=== PATIENT | female | born 1995 | race Caucasian/White ===

== ENCOUNTER 2016-08-18 18:40 | Emergency (ER) | payer MEDICAID, OTHER ==
[~2016-08-18] VITALS: Ht 167.6 cm; Wt 68.0 kg
[~2016-08-18 18:40] MED LIST: ACHD5005 PO; CIPR500T4 PO; CPR500T PO; DESV50TA PO; HYDR1CAP2 PO; HYDR30CR71 RC; METR500T21 PO; PNV1COMB25 PO
[2016-08-18 19:17] LABS: BILIRUBIN,URINE NEGATIVE (NEGATIVE); KETONES,URINE NEGATIVE (NEGATIVE); LEUKOCYTE ESTERASE ,URINE 3+ (NEGATIVE); NITRITE,URINE NEGATIVE (NEGATIVE); PH,URINE 7 (5-9); PROTEIN,URINE NEGATIVE (NEGATIVE); UROBILINOGEN,URINE NORMAL (NORMAL)
[2016-08-18 19:26] LABS: WBC,URINE 25-50 /HPF
[2016-08-18 19:27] LABS: SQUAMOUS EPITHELIAL CELL,UR 25-50 /HPF
--- NOTE | 2016-08-18 20:48 | Diagnostic Imaging Report ---
INDICATION: Back pain. Question UTI. Patient is . FINDINGS: There is single live intrauterine fetus. [place]-rump length of 3 cm consistent with 10 week 0 day gestation. No evidence of subchorionic fluid collection. heart rate is 167 beats per minute. The ovaries are not demonstrated. No adnexal mass is noted. IMPRESSION: 10 week 0 day live intrauterine by current ultrasound. Dictated by: Dictated on workstation # [id number]
--- NOTE | 2016-08-18 21:17 | ED GU-Female ---
General Chief Complaint: -Female Stated Complaint: 10 WKS PREG/LOWER BACK PAIN/CRAMPING Nursing Triage Note: PAINFUL URINATION X2 DAYS, LOWER BACK PAIN TONIGHT. Nursing Sepsis Screen: No Definite Risk Source: patient Exam Limitations: no limitations History of Present Illness Time seen by provider: 20:55 Initial Comments Here with report of dysuria for a few days. Also complains of some low back pain. Has increased fluids in her diet. Also reports fairly significant constipation with last bowel movement 2 days ago. She states that she has had to use enemas to get a bowel movement. Last sexual activity a week ago. Denies vaginal discharge or bleeding. Pain is a little better now. Denies nausea or vomiting. Denies fever or chills. Timing/Duration: changing over time, other (2 days) Severity/Quality: mild, cramping Location: suprapubic Radiation: RLQ, LLQ, back Activities at Onset: none Sexual Hillman History: less than 2 months ago, single partner Modifying Factors: Worsens With Urinating Associated Symptoms: dysuriaNo fever/chills, No loss of bladder control, lower back painNo nausea/vomiting, No urinary frequency Allergies and Home Medications Allergies Coded Allergies: No Known Drug Allergies (Unverified , 01/09/11) Home Medications Ciprofloxacin HCl 500 Mg Tablet #14 500 MG PO BID Prescribed by: GARCIA ALVAREZ on 05/20/1634 Hydrocortisone 30 Gm Cream..g. #1 30 GM RC TID PRN PRN HEMORRHOIDS Prescribed by: GARCIA ALVAREZ on 05/20/16 0732 Metronidazole 500 Mg Tablet #14 500 MG PO BID Prescribed by: GARCIA ALVAREZ on 05/20/16 0734 Pnv #116/Iron Fumarate/FA/Dha 1 Each Combo..pkg 1 EACH PO DAILY (Reported) Constitutional: see HPI Respiratory: no symptoms reported Cardiovascular: no symptoms reported Gastrointestinal: RLQ LLQNo nausea, No vomiting Genitourinary: see HPIdenies discharge, dysuria Expected Date of Delivery: Mar 16, 2017 Musculoskeletal: see HPI back pain Skin: no symptoms reported Past Vkjssja-Tpmvyv-Robsmw Hx Patient Social History Alcohol Use: Denies Use Recreational Drug Use: Yes (marijuana, etoh 2x weekly, 1/2ppd) Smoking Status: Former Smoker Type Used: Cigarettes Recent Foreign Travel: No Contact w/Someone Who Travel: No Recent Infectious Disease Expo: No Recent Hopitalizations: No Physical Abuse Screen: No Sexual Abuse: No Immunizations Up To Date Tetanus Booster (TDap): Unknown Seasonal Allergies Seasonal Allergies: No Surgeries HX Surgeries: No Respiratory Hx Respiratory Disorders: No Cardiovascular Hx Cardiac Disorders: No Neurological Hx Neurological Disorders: No Reproductive System : Yes Hx : 1 Hx Para: 0 Hx Reproductive Disorders: No Genitourinary Hx Genitourinary Disorders: Yes Genitourinary Disorders: Kidney Stones Gastrointestinal Hx Gastrointestinal Disorders: Yes Gastrointestinal Disorders: Chronic Constipation Musculoskeletal Hx Musculoskeletal Disorders: No Endocrine Hx Endocrine Disorders: No HEENT HX ENT Disorders: No Cancer Hx Cancer: No Psychosocial Hx Psychiatric Problems: No Integumentary HX Skin/Integumentary Disorder: No Blood Transfusions Hx Blood Disorders: No Reviewed Nursing Assessment Reviewed/Agree w Nursing PMH: Yes Family Medical History Significant Family History: No Pertinent Family Hx Physical Exam Vital Signs Vital Sign - Last 12Hours 08/18/16 19:11 Temp 98.1 Pulse 99 Resp 16 B/P 125/80 Pulse Ox 99 O2 Delivery Room Air Capillary Refill : Less Than 3 Seconds General Appearance: WD/WN no apparent distress Neck: full range of motion supple Cardiovascular: regular rate, rhythm no murmur Respiratory: lungs clear normal breath sounds Gastrointestinal: soft tenderness (mild suprapubic and bilateral lower quadrant/pelvic pain.) Pelvic: other (patient declined) Back: normal inspection no CVA tenderness no vertebral tenderness Extremities: non-tender normal inspection Neurologic/Psychiatric: alert oriented x 3 Skin: normal color warm/dry Progress/Results/Core Measures Results/Orders Lab Results Laboratory Tests Test 08/18/16 19:08 Range/Units Urine Bacteria MODERATE H /HPF Urine Bilirubin NEGATIVE NEGATIVE Urine Casts NONE /LPF Urine Clarity SLIGHTLY CLOUDY Urine Color YELLOW Urine Crystals NONE /LPF Urine Culture Indicated YES Urine Glucose (UA) NEGATIVE NEGATIVE Urine Ketones NEGATIVE NEGATIVE Urine Leukocyte Esterase 3+ H NEGATIVE Urine Mucus NEGATIVE /LPF Urine Nitrite NEGATIVE NEGATIVE Urine Protein NEGATIVE NEGATIVE Urine RBC NONE /HPF Urine RBC (Auto) NEGATIVE NEGATIVE Urine Specific [place] 1.015 L 1.016-1.022 Urine Squamous Epithelial Cells 25-50 H /HPF Urine Urobilinogen NORMAL NORMAL MG/DL Urine WBC 25-50 H /HPF Urine pH 7 5-9 Vital Signs/I&O Vital Sign - Last 12Hours 08/18/16 19:11 Temp 98.1 Pulse 99 Resp 16 B/P 125/80 Pulse Ox 99 O2 Delivery Room Air Blood Pressure Mean: 95 Progress Note : Progress Note Seen and evaluated. UA and ultrasound ordered. Ultrasound results as below. I did discuss with the patient about UA results due to contamination. Also recommending pelvic exam as this may be pelvic infection such as Flexeril vaginosis. Patient states that she is having pain vaginally and would like to wait if possible. This is reasonable. She has established OB with Dr. Ellis. We will hold on antibiotic treatment until cultures are obtained. She will follow up with her doctor for further evaluation including possible pelvic exam as needed. Patient would like to avoid antibiotics until cultures are obtained if possible due to concerns about risk to the fetus. This is reasonable currently. We also talked about her constipation concerns and issues. She will initiate MiraLAX treatment and also discussed this with her doctor. I am recommending 2-3 day follow-up with her doctor. Discharged home with return precautions. Patient verbalize understanding instructions and agreement with plan. Departure Impression Impression: Primary Impression: Suprapubic abdominal pain Disposition: HOME, SELF-CARE Condition: Improved Departure-Patient Inst. Decision time for Depature: 21:17 Referrals: ELLA ELLIS MD (PCP) Primary Care Physician NO,LOCAL PHYSICIAN (Family) Primary Care Physician Patient Instructions: Acute Abdomen (Belly Pain), Adult (DC) Add. Discharge Instructions: All discharge instructions reviewed with patient and/or family. Voiced understanding. Drink plenty of fluids. You may use MiraLAX or the generic one capful twice daily for 3 days and then one half capful twice daily thereafter to keep stools soft. You may increase or decrease the dose as needed to keep normal bowel movements. Call Dr. Ellis in the morning for follow-up appointment within the next 2-3 days. Your cultures are pending on your urine. We will call you if there is indications of urinary tract infection but you still need to follow- up with Dr. Ellis for possible pelvic exam as needed and treatment if indicated. Return for worse pain, fever, vomiting, weakness, breathing problems or other concerns as needed. Copy Copies To 1: ELLA ELLIS MD, TIMOTHY D MD Aug 18, 2016 21:17
[2016-08-18 21:43] VITALS: BP 120/76
== END 2016-08-18 21:43 | disposition home or self-care (01) ==
LOC: EDUNIT# 18:40 → ER 18:42
DX: O26.891 Other specified pregnancy related conditions, first trimester (principal); R10.31 Right lower quadrant pain; R10.32 Left lower quadrant pain; M54.5 Low back pain; K59.00 Constipation, unspecified; Z3A.10 10 weeks gestation of pregnancy
CPT/HCPCS: 76817; 81000; 87088

== ENCOUNTER → 2016-11-01 | Outpatient (CLI) | payer MEDICAID ==
--- NOTE | 2016-11-01 12:43 | Diagnostic Imaging Report ---
EXAMINATION: OB ultrasound. INDICATION: survey. COMPARISON: Ultrasound of 08/18/2016. FINDINGS: The heart rate is 129 BPM. The placenta is posterior. There is no placenta previa. The cervix is closed and is 3.8 cm in length. The anatomic evaluation demonstrates a normal appearance of the posterior fossa. The ventricles are normal in size. The urinary bladder appears unremarkable. Two umbilical arteries are seen. The spine demonstrates no definite abnormality. The kidneys demonstrate no hydronephrosis or cystic mass. The cord insertion appears unremarkable. The four-chamber view is not well seen due to positioning. The stomach appears unremarkable. The growth parameters are as follow: Biparietal diameter at 20 weeks and 0 days. Head circumference at 20 weeks and 5 days. Abdominal circumference at 20 weeks and 4 days. Femur length at 20 weeks and 4 days. The average gestational age is 20 weeks and 4 days. The previous ultrasound did not provide an BENJA. Based on a provided BENJA of 03/16/2017, the current gestational age would be 20 weeks and 5 days. IMPRESSION: 1. A short-term followup is recommended to reevaluate the four-chamber view. 2. The current growth parameters are at 20 weeks and 4 days. Correlate with the established BENJA. Dictated by: Dictated on workstation # [id number]
== END ==
LOC: RAD 10:11
PROVIDERS: ATTEND Obstetrics & Gynecology
DX: Z36 Encounter for antenatal screening of mother (principal); Z33.1 Pregnant state, incidental
CPT/HCPCS: 76805

== ENCOUNTER 2016-11-29 11:15 | Outpatient (RCR) | payer MEDICAID ==
--- OUTSIDE RECORDS SUMMARY | 2016-10-18 08:14 | XMS REPORT ---
Author Author RAKESH LIZBETH Organization [facility] Address [address] [place] [address] Care Team Providers Care Fur Puller Name Role Phone CAMERONLIZBETH Mcbride Unavailable PROBLEMS Type Condition ICD9-CM Code [id number] Code Onset Dates Condition Status SNOMED Code Problem Major depressive disorder, recurrent episode, moderate F33.1 Active 269838297 Problem Depression F32.9 Active 19293226 Problem Anxiety F41.9 Active 25222089 Assessment Encounter for test Z32.00 12 Jul, 2016 Active 943495983 Problem Major depressive disorder, recurrent, mild F33.0 Active 469452731 Problem Generalized anxiety disorder F41.1 Active 02139315 Problem OAB (overactive bladder) N32.81 Active 070564608 Problem Low back pain M54.5 Active 820707648 Problem 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 Active 280874392 Problem History of substance abuse Z87.898 Active 435106932 Problem Other chronic pain G89.29 Active 24877677 Problem Routine health maintenance Z00.00 Active 033732121 ALLERGIES Unknown Allergies SOCIAL HISTORY No smoking Hx information available PLAN OF CARE VITAL SIGNS MEDICATIONS Unknown Medications RESULTS Name Result Date Reference Range TEST, URINE (IN HOUSE) 2016-07-15 RESULTS Positive Lot # [id number] Control + Exp date 11/2017 PROCEDURES Procedure Date Ordered Related Diagnosis Body Site URINE TEST Jul 15, 2016 IMMUNIZATIONS No Known Immunizations
== END 2016-11-29 11:49 | disposition home or self-care (01) ==
PROVIDERS: ATTEND Family Medicine
DX: O26.892 Other specified pregnancy related conditions, second trimester (principal); M54.42 Lumbago with sciatica, left side; Z3A.18 18 weeks gestation of pregnancy

== ENCOUNTER → 2016-12-03 | Outpatient (CLI) | payer MEDICAID ==
--- NOTE | 2016-12-03 13:03 | Diagnostic Imaging Report ---
OB ultrasound. INDICATION: Incomplete survey with poor visualization of the heart on the previous exam. FINDINGS: heart rate is 130 beats per minutes. The placenta is posterior. No placenta previa. The four-chamber view is better seen on the current exam with no definite abnormality. IMPRESSION: Completed survey with unremarkable four-chamber view of the heart. Dictated by: Dictated on workstation # [id number]
== END ==
LOC: RAD 09:55
PROVIDERS: ATTEND Obstetrics & Gynecology
DX: Z36 Encounter for antenatal screening of mother (principal); Z3A.00 Weeks of gestation of pregnancy not specified
CPT/HCPCS: 76816

== ENCOUNTER 2017-03-09 15:01 | Outpatient (CLI) | payer MEDICAID ==
[~2017-03-09] VITALS: Ht 167.6 cm; Wt 85.7 kg
[2017-03-09] MEDS ORDERED: OMEP10CA4 PO (15:32)
[2017-03-09] MEDS ORDERED: FERR-84 PO (15:34)
[2017-03-09] MEDS ORDERED: DOXY25TA35 PO (15:34)
[2017-03-09 15:41] VITALS: BP 128/84
--- NOTE | 2017-03-10 11:25 | Physician Query-Final Dx ---
ANKUR EVERETT 03/10/17 1124: Clinic Account Progress/Dx Physician Query: Please give diagnosis Date of Service Mar 09, 2017 at 15:01 OSVALDO SULTANA MD 03/10/17 1228: Clinic Account Progress/Dx DIAGNOSIS: Diagnosis decreased movement ANKUR EVERETT Mar 10, 2017 11:24 OSVALDO SULTANA MD Mar 10, 2017 12:28
== END 2017-03-09 15:55 | disposition home or self-care (01) ==
LOC: LDRP 15:01 → WSo 15:01
PROVIDERS: ATTEND Obstetrics & Gynecology
DX: O36.8190 Decreased fetal movements, unspecified trimester, not applicable or unspecified (principal)
CPT/HCPCS: 99212

== ENCOUNTER 2017-03-15 21:15 | Outpatient (CLI) | payer MEDICAID ==
[~2017-03-15] VITALS: Ht 167.6 cm; Wt 87.1 kg
[~2017-03-15 21:15] MED LIST changes: +DOXY25TA35 PO; +FERR-84 PO; +OMEP10CA4 PO
[2017-03-15 21:33] VITALS: BP 129/86
[2017-03-15 21:52] LABS: BILIRUBIN,URINE NEGATIVE (NEGATIVE); KETONES,URINE NEGATIVE (NEGATIVE); LEUKOCYTE ESTERASE ,URINE 1+ (NEGATIVE); NITRITE,URINE NEGATIVE (NEGATIVE); PH,URINE 7 (5-9); PROTEIN,URINE 1+ (NEGATIVE); UROBILINOGEN,URINE NORMAL (NORMAL)
[2017-03-15 21:59] LABS: SQUAMOUS EPITHELIAL CELL,UR 25-50 /HPF
--- NOTE | 2017-03-17 13:28 | Physician Query-Final Dx ---
ANKUR EVERETT 03/17/17 1328: Clinic Account Progress/Dx Physician Query: Please give diagnosis Date of Service Mar 15, 2017 at 21:15 NYLA STERN DO 03/18/17 0720: Clinic Account Progress/Dx DIAGNOSIS: Diagnosis 39 week IUP Uterine contractions vaginal discharge ANKUR EVERETT Mar 17, 2017 13:28 NYLA STERN DO Mar 18, 2017 07:20
== END 2017-03-15 22:18 | disposition home or self-care (01) ==
LOC: WSo 21:15 → LDRP 21:16 → WSo 22:18
PROVIDERS: ATTEND Obstetrics & Gynecology
DX: O47.1 False labor at or after 37 completed weeks of gestation (principal); O26.893 Other specified pregnancy related conditions, third trimester; N89.8 Other specified noninflammatory disorders of vagina; Z3A.39 39 weeks gestation of pregnancy
CPT/HCPCS: 81000; 99213

== ENCOUNTER 2017-03-20 19:00 | Inpatient (IN) | payer MEDICAID ==
[~2017-03-20] VITALS: Ht 167.6 cm; Wt 87.1 kg
[2017-03-20] MEDS ORDERED: D5 LR IV SOLUTION 1,000 ML IV ONE (19:05)
--- OUTSIDE RECORDS SUMMARY | 2017-03-20 19:09 | XMS REPORT ---
Author Author RAKESH LIZBETH Organization [facility] Address [address] [place] [address] Care Team Providers Care Logistics Lead Name Role Phone CAMERONLIZBETH Mcbride Unavailable PROBLEMS Type Condition ICD9-CM Code [id number] Code Onset Dates Condition Status SNOMED Code Problem Major depressive disorder, recurrent episode, moderate F33.1 Active 746576035 Problem Depression F32.9 Active 67227846 Problem Anxiety F41.9 Active 66707580 Assessment Encounter for test Z32.00 12 Jul, 2016 Active 373475762 Problem Major depressive disorder, recurrent, mild F33.0 Active 044189351 Problem Generalized anxiety disorder F41.1 Active 58130424 Problem OAB (overactive bladder) N32.81 Active 224614116 Problem Low back pain M54.5 Active 528560573 Problem 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 Active 427136213 Problem History of substance abuse Z87.898 Active 598197578 Problem Other chronic pain G89.29 Active 19597448 Problem Routine health maintenance Z00.00 Active 070036237 ALLERGIES Unknown Allergies SOCIAL HISTORY No smoking Hx information available PLAN OF CARE VITAL SIGNS MEDICATIONS Unknown Medications RESULTS Name Result Date Reference Range TEST, URINE (IN HOUSE) 2016-07-15 RESULTS Positive Lot # [id number] Control + Exp date 11/2017 PROCEDURES Procedure Date Ordered Related Diagnosis Body Site URINE TEST Jul 15, 2016 IMMUNIZATIONS No Known Immunizations
--- OUTSIDE RECORDS SUMMARY | 2017-03-20 19:09 | XMS REPORT ---
Author Author VAL JORDAN [facility] eClinical[employer] Address Unknown Phone Unavailable Care Team Providers Care Production Wood Craftsman Name Role Phone VAL JORDAN Unavailable Allergies No Known Allergies Problems Problem Type Condition Code Onset Dates Condition Status Problem Major depressive disorder, recurrent, mild F33.0 Active Medications No Known Medications Results No Known Results Summary Purpose eClinicalWorks Submission
--- OUTSIDE RECORDS SUMMARY | 2017-03-20 19:09 | XMS REPORT ---
Author Author VAL JORDAN [facility] eClinicalWorks Address Unknown Phone Unavailable Care Team Providers Care Mural Painter Name Role Phone VAL JORDAN Unavailable Allergies No Known Allergies Problems Problem Type Condition Code Onset Dates Condition Status Problem Major depressive disorder, recurrent, mild F33.0 Active Medications Medication Code System Code Instructions Start Date End Date Status Dosage Diflucan [facility] [address]-14 150 MG Orally Once a day Jul 06, 2015 1 tablet Results No Known Results Summary Purpose eClinicalWorks Submission
--- OUTSIDE RECORDS SUMMARY | 2017-03-20 19:10 | XMS REPORT ---
Author Author LIZBETH CAMERON Organization [employer] Address Unknown Phone Unavailable Care Team Providers Care Management Trainee Program Stores Name Role Phone LIZBETH CAMERON CP Unavailable Allergies No Known Allergies Problems Problem Type Condition Code Onset Dates Condition Status Problem Generalized anxiety disorder F41.1 Active Problem Anxiety F41.9 Active Problem Major depressive disorder, recurrent episode, moderate F33.1 Active Problem Major depressive disorder, recurrent, mild F33.0 Active Problem Low back pain M54.5 Active Problem Other chronic pain G89.29 Active Problem OAB (overactive bladder) N32.81 Active Problem History of substance abuse Z87.898 Active Problem Depression F32.9 Active Problem Routine health maintenance Z00.00 Active Problem 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 Active Medications Medication Code System Code Instructions Start Date End Date Status Dosage Cipro [facility] [address]-34 500 MG Orally Twice a day May 24, 2016 May 31, 2016 1 tablet Anusol-HC [facility] [address]-97 2.5 % Rectal 3 times a day May 24, 2016 1 application to affected area Flagyl [facility] [address]-13 500 MG Orally 2 times a day May 24, 2016 May 31, 2016 1 tablet Results No Known Results Summary Purpose eClinicalWorks Submission
--- OUTSIDE RECORDS SUMMARY | 2017-03-20 19:10 | XMS REPORT ---
Author Author LIZBETH CAMERON Organization [employer] Address Unknown Phone Unavailable Care Team Providers Care Lining Stitcher Name Role Phone LIZBETH CAMERON CP Unavailable Allergies, Adverse Reactions, Alerts Substance Reaction Event Type Wellbutrin Hallucinations Drug Allergy Problems Problem Type Condition Code Onset Dates Condition Status Problem Major depressive disorder, recurrent, mild F33.0 Active Problem Major depressive disorder, recurrent episode, moderate F33.1 Active Problem Generalized anxiety disorder F41.1 Active Problem Other chronic pain G89.29 Active Problem Routine health maintenance Z00.00 Active Problem Low back pain M54.5 Active Problem Depression F32.9 Active Problem Anxiety F41.9 Active Problem 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 Active Problem History of substance abuse Z87.898 Active Assessment Other chronic pain G89.29 Active Assessment Low back pain M54.5 Active Assessment Anxiety F41.9 Active Medications Medication Code System Code Instructions Start Date End Date Status Dosage Sertraline HCl [facility] [address]-50 25 MG Orally Once a day February 16, 2016 1 tablet Procedures Procedure Coding System Code Date Office Visit, Est Pt., Level 3 CPT-4 95934 February 16, 2016 Vital Signs Date/Time: February 16, 2016 Cardiac Monitoring Heart Rate 84 bpm Weight 143.3 lbs Height 67 in Blood Pressure Diastolic 76 mmHg Blood Pressure Systolic 118 mmHg Results No Known Results Summary Purpose eClinicalWorks Submission
--- OUTSIDE RECORDS SUMMARY | 2017-03-20 19:10 | XMS REPORT ---
Author Author CA DUMONT [employer] Address Unknown Phone Unavailable Care Team Providers Care Proofing Machine Operator Name Role Phone CA DUMONT Unavailable Allergies No Known Allergies Problems Problem [...] History of substance abuse Z87.898 Active Assessment History of substance abuse Z87.898 Active Assessment Generalized anxiety disorder F41.1 Active Assessment Major depressive disorder, recurrent episode, moderate F33.1 Active Medications No Known Medications Procedures Procedure Coding System Code Date Psychotherapy, patient &/family, 45 minutes, established patient CPT-4 20016 Mar 19, 2016 Results No Known Results Summary Purpose ngmocoinicalWorks Submission
--- OUTSIDE RECORDS SUMMARY | 2017-03-20 19:10 | XMS REPORT ---
Author Author LIZBETH CAMERON Organization [employer] Address Unknown Phone Unavailable Care Team Providers Care Public Health Staff Nurse Name Role Phone LIZBETH CAMERON CP Unavailable [...] Problem 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 Active Medications No Known Medications Results No Known Results Summary Purpose eClinicalWorks Submission
--- OUTSIDE RECORDS SUMMARY | 2017-03-20 19:10 | XMS REPORT ---
Author Author VAL JORDAN [facility] eClinicalWorks Address Unknown Phone Unavailable Care Team Providers Care Inspector Motor Vehicles Name Role Phone VAL JORDAN CP Unavailable Allergies, Adverse Reactions, Alerts Substance Reaction Event Type N.K.D.A. Info Not Available Non Drug Allergy Problems Problem Type Condition Code Onset Dates Condition Status Assessment History of hematuria Z87.448 Active Assessment History of recurrent UTIs Z87.440 Active Assessment Dysuria R30.0 Active Assessment Screening for malignant neoplasm of cervix Z12.4 Active Problem Major depressive disorder, recurrent, mild F33.0 Active Assessment Urinary frequency R35.0 Active Assessment Suprapubic pain R10.2 Active Assessment Vaginal discharge N89.8 Active Assessment Costovertebral angle pain M54.9 Active Medications Medication Code System Code Instructions Start Date End Date Status Dosage AZO Cranberry [facility] [address] 250-30 MG Orally not defined Bactrim DS [facility] [address]-78 800-160 MG Orally 2 times a day Jul 03, 2015 Jul 06, 2015 1 tablet Procedures Procedure Coding System Code Date URINE CULTURE/COLONY COUNT CPT-4 89931 Jul 03, 2015 CULTURE, BACTERIA, OTHER CPT-4 48366 Jul 03, 2015 URINALYSIS, AUTO, W/O SCOPE CPT-4 28297 Jul 03, 2015 TRICHOMONAS VAGIN, DIR PROBE CPT-4 03563 Jul 03, 2015 No Charge CPT-4 34395 Jul 03, 2015 Office Visit, Est Pt., Level 3 CPT-4 72001 Jul 03, 2015 SPECIMEN HANDLING CPT-4 91395 Jul 03, 2015 Vital Signs Date/Time: Jul 03, 2015 Temperature 97.3 F Weight 152.8 lbs Height 67 in BMI 23.93 Index Blood Pressure Diastolic 70 mmHg Blood Pressure Systolic 106 mmHg Cardiac Monitoring Heart Rate 84 bpm Results No Known Results Summary Purpose eClinicalWorks Submission
--- OUTSIDE RECORDS SUMMARY | 2017-03-20 19:10 | XMS REPORT ---
Author KEV Webb [facility] eClinicalWorks Address Unknown Phone Unavailable Care Team Providers Care Wool Mixer Name Role Phone KEV TOLBERT Unavailable Allergies No Known Allergies Problems Problem Type Condition Code Onset Dates Condition Status Problem Anxiety F41.9 Active Problem Major depressive disorder, recurrent, mild F33.0 Active Problem Depression F32.9 Active Assessment Depression F32.9 Active Assessment Anxiety F41.9 Active Medications Medication Code System Code Instructions Start Date End Date Status Dosage Wellbutrin XL [facility] [address]-42 150 MG Orally Once a day November 28, 2015 1 tablet in the morning Clonidine HCl [facility] [address]-18 0.1 MG Orally bid November 28, 2015 1 tablet Results No Known Results Summary Purpose eClinicalWorks Submission
--- OUTSIDE RECORDS SUMMARY | 2017-03-20 19:10 | XMS REPORT ---
Author Author LIZBETH CAMERON Organization [employer] Address Unknown Phone Unavailable Care Team Providers Care Spare Parts Clerk Name Role Phone LIZBETH CAMERON CP Unavailable Allergies, Adverse Reactions, Alerts Substance Reaction Event Type Wellbutrin Hallucinations Drug Allergy Problems Problem Type Condition Code Onset Dates Condition Status Problem Generalized anxiety disorder F41.1 Active Problem Anxiety F41.9 Active Problem Major depressive disorder, recurrent episode, moderate F33.1 Active Problem Low back pain M54.5 Active Problem Other chronic pain G89.29 Active Problem OAB (overactive bladder) N32.81 Active Problem History of substance abuse Z87.898 Active Problem Depression F32.9 Active Problem Routine health maintenance Z00.00 Active Problem 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 Active Assessment OAB (overactive bladder) N32.81 Active Assessment Urinary frequency R35.0 Active Problem Major depressive disorder, recurrent, mild F33.0 Active Medications Medication Code System Code Instructions Start Date End Date Status Dosage Myrbetriq [facility] [address]-88 25 MG Orally Once a day May 14, 2016 Jun 13, 2016 1 tablet Procedures Procedure Coding System Code Date Office Visit, Est Pt., Level 3 CPT-4 02632 May 14, 2016 URINALYSIS, AUTO, W/O SCOPE CPT-4 60029 May 14, 2016 Vital Signs Date/Time: May 14, 2016 Cardiac Monitoring Heart Rate 92 bpm Weight 153.0 lbs Height 67 in BMI 23.96 Index Blood Pressure Diastolic 78 mmHg Blood Pressure Systolic 112 mmHg Results No Known Results Summary Purpose eClinicalWorks Submission
--- OUTSIDE RECORDS SUMMARY | 2017-03-20 19:10 | XMS REPORT ---
Author Author LIZBETH CAMERON Organization [employer] Address Unknown Phone Unavailable Care Team Providers Care Alteration Tailor Apprentice Name Role Phone LIZBETH CAMERON CP Unavailable [...] Problem History of substance abuse Z87.898 Active Medications No Known Medications Results No Known Results Summary Purpose eClinicalWorks Submission
--- OUTSIDE RECORDS SUMMARY | 2017-03-20 19:10 | XMS REPORT ---
Author Author LIZBETH CAMERON Organization [employer] Address Unknown Phone Unavailable Care Team Providers Care Bead Wire Insulator Name Role Phone LIZBETH CAMERON CP Unavailable Allergies, Adverse Reactions, Alerts Substance Reaction Event Type Wellbutrin Hallucinations Drug Allergy Problems Problem Type Condition Code Onset Dates Condition Status Problem Major depressive disorder, recurrent, mild F33.0 Active Problem Major depressive disorder, recurrent episode, moderate F33.1 Active Problem Generalized anxiety disorder F41.1 Active Assessment Anxiety F41.9 Active Assessment Major depressive disorder, recurrent, mild F33.0 Active Problem Other chronic pain G89.29 Active Problem Routine health maintenance Z00.00 Active Problem Low back pain M54.5 Active Problem Depression F32.9 Active Problem Anxiety F41.9 Active Problem 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 Active Problem History of substance abuse Z87.898 Active Medications Medication Code System Code Instructions Start Date End Date Status Dosage Clonazepam [facility] [address]-49 0.5 MG Orally Twice a day Mar 15, 2016 1 tablet Procedures Procedure Coding System Code Date Office Visit, Est Pt., Level 3 CPT-4 63128 Mar 15, 2016 Vital Signs Date/Time: Mar 15, 2016 Blood Pressure Systolic 106 mmHg Weight 143.3 lbs Height 67 in BMI 22.44 Index Blood Pressure Diastolic 68 mmHg Results No Known Results Summary Purpose [employer] Submission
--- OUTSIDE RECORDS SUMMARY | 2017-03-20 19:11 | XMS REPORT ---
Author Author ZEN MARCELO [facility] [employer] Address Unknown Phone Unavailable Care Team Providers Care Dealer Account Manager Name Role Phone ZEN MARCELO CP Unavailable Allergies No Known Allergies Problems Problem Type Condition Code Onset Dates Condition Status Assessment Anxiety F41.9 Active Assessment Major depressive disorder, recurrent, mild F33.0 Active Problem Major depressive disorder, recurrent, mild F33.0 Active Assessment Substance addiction F19.20 Active Assessment Depression F32.9 Active Assessment Substance abuse F19.10 Active Medications No Known Medications Procedures Procedure Coding System Code Date Psych diagnostic evaluation, established patient CPT-4 29135 November 28, 2015 Results No Known Results Summary Purpose [employer] Submission
--- OUTSIDE RECORDS SUMMARY | 2017-03-20 19:11 | XMS REPORT ---
Author Author LIZBETH CAMERON Organization [employer] Address Unknown Phone Unavailable Care Team Providers Care Laundry Manager Name Role Phone LIZBETH CAMERON CP Unavailable [...] Problem 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 Active Assessment Major depressive disorder, recurrent episode, moderate F33.1 Active Assessment Generalized anxiety disorder F41.1 Active Problem Major depressive disorder, recurrent, mild F33.0 Active Medications Medication Code System Code Instructions Start Date End Date Status Dosage Escitalopram Oxalate [facility] [address]-38 20 mg Orally Once a day Jun 11, 2016 1 tablet Procedures Procedure Coding System Code Date Office Visit, Est Pt., Level 3 CPT-4 98890 Jun 11, 2016 Vital Signs Date/Time: Jun 11, 2016 Cardiac Monitoring Heart Rate 82 bpm Weight 153.7 lbs Height 67 in BMI 24.07 Index Blood Pressure Diastolic 70 mmHg Blood Pressure Systolic 114 mmHg Results No Known Results Summary Purpose [employer] Submission
[2017-03-20] MEDS: D5 LR IV SOLUTION 1,000 ML IV SCH (19:25)
[2017-03-20] MEDS: LACTATED RINGERS 1,000 ML IV SCH (19:50)
[2017-03-20 20:00] VITALS: BP 134/85
[2017-03-20] MEDS ORDERED: MISOPROSTOL 100 MCG (CYTOTEC) TAB PO ONE (20:15)
[2017-03-20] MEDS ORDERED: MINERAL OIL CONCENTRATE 99.9% 15 ML UDC TOP PRN (20:15)
[2017-03-20] MEDS ORDERED: DOXY25TA46 PO (20:19)
[2017-03-20 20:20] LABS: BASOPHILS % (AUTO) 0 % (0-10); EOSINOPHILS # (AUTO) 0.1 10^3/uL (0.0-0.3); EOSINOPHILS % (AUTO) 1 % (0-10); LYMPHOCYTES # (AUTO) 2.2 X 10^3 (1.0-4.0); LYMPHOCYTES % (AUTO) 18 % (12-44); MEAN CORPUSCULAR HEMOGLOBIN 31 PG (25-34); MEAN CORPUSCULAR HGB CONC 34 G/DL (32-36); MEAN CORPUSCULAR VOLUME 92 FL (80-99); MEAN PLATELET VOLUME 11.5 FL (7.4-10.4); MONOCYTES # (AUTO) 0.6 X 10^3 (0.0-1.0); MONOCYTES % (AUTO) 5 % (0-12); NEUTROPHILS # (AUTO) 9.3 X 10^3 (1.8-7.8); NEUTROPHILS % (AUTO) 76 % (42-75); PLATELET COUNT 200 10^3/uL (130-400); RED BLOOD COUNT 3.93 10^6/uL (4.35-5.85); RED CELL DISTRIBUTION WIDTH 12.9 % (10.0-14.5); WHITE BLOOD COUNT 12.2 10^3/uL (4.3-11.0)
[2017-03-20 20:43] LABS: BILIRUBIN,URINE NEGATIVE (NEGATIVE); KETONES,URINE NEGATIVE (NEGATIVE); LEUKOCYTE ESTERASE ,URINE 1+ (NEGATIVE); NITRITE,URINE NEGATIVE (NEGATIVE); PH,URINE 6.5 (5-9); PROTEIN,URINE NEGATIVE (NEGATIVE); UROBILINOGEN,URINE NORMAL (NORMAL)
[2017-03-20] MEDS ORDERED: ONDANSETRON 4 MG/2 ML (SDV) Z0FRAN ONE (21:33)
[2017-03-20] MEDS: ONDANSETRON 4 MG/2 ML (SDV) Z0FRAN IVP PRN (21:42)
[2017-03-20 22:00] VITALS: BP 125/85
[2017-03-20] MEDS ORDERED: CATHETER FLUSH 10 ML SYR IV SCH (22:00)
[2017-03-20 23:00] VITALS: BP 128/82
[2017-03-21] VITALS (40 sets, daily range): BP systolic 108–170; BP diastolic 56–95
[2017-03-21] MEDS ORDERED: MISOPROSTOL 100 MCG (CYTOTEC) TAB PO SCH (00:15)
[2017-03-21] MEDS ORDERED: HYDROmorphone (DILAUDID) 2 MG/ML VIAL IVP ONE (03:15)
[2017-03-21] MEDS: D5 LR IV SOLUTION 1,000 ML IV SCH (03:19)
[2017-03-21] MEDS ORDERED: SUFENTA 0.6MCG/ML BUPIVA 0.125 100 ML ONE (06:06)
[2017-03-21] MEDS: LACTATED RINGERS 1,000 ML IV SCH (06:14)
[2017-03-21] MEDS: ONDANSETRON 4 MG/2 ML (SDV) Z0FRAN IVP PRN (06:17)
[2017-03-21] MEDS ORDERED: BUPIVACAINE 0.25% 30 ML (SENSORCAINE) VIAL ONE (06:57)
[2017-03-21] MEDS ORDERED: LACTATED RINGERS 1,000 ML IV ONE (07:26)
[2017-03-21] MEDS ORDERED: EPIDURAL (SUFENTA 0.6MCG/ML BUPIVA 0.125%) 100 ML BAG EPI SCH (07:30)
[2017-03-21] MEDS ORDERED: NALOXONE 0.4 MG/ML 1 ML (NARCAN) VIAL IV PRN (07:30)
[2017-03-21] MEDS ORDERED: ONDANSETRON 4 MG/2 ML (SDV) Z0FRAN IV PRN (07:30)
[2017-03-21] MEDS ORDERED: OXYTOCIN/NORMAL SALINE 500 ML IV ONE ×2 (09:33→12:27)
--- NOTE | 2017-03-21 09:54 | History & Physical-OB ---
OB - Chief Complaint & HPI Date/Time Date of Admission: Date of Admission: Mar 20, 2017 at 7:00 pm Time Seen by Provider: 08:20 Chief Complaint/History OB-Reason for Admission/Chief: Induction of Labor Hx : 1 Hx Para: 0 Expected Date of Delivery: Mar 16, 2017 Gestational Age in Weeks: 40 Gestational Age in Days: 5 Indication for induction: post dates Admission Nurse Assessment Rev: Yes History of Labs A pos Antibody neg Rubella Equivocal HBsAg NR RPR NR HIV NR GC neg GBS neg Allergies and Home Medications Allergies Coded Allergies: No Known Drug Allergies (Unverified , 01/09/11) Home Medications Doxylamine Succinate 25 Mg Tablet, 25 MG PO HS, (Reported) Ferrous Sulfate 325 Mg Tablet, 325 MG PO, (Reported) Omeprazole 10 Mg Capsule.dr, 10 MG PO PRN, (Reported) Pnv #116/Iron Fumarate/FA/Dha 1 Each Combo..pkg, 1 EACH PO DAILY, (Reported) OB - History Hx of Present Care: Yes Ultrasounds: Normal mid trimester US Obstetrical Complications: None Medical Complications: None Obstetrical History Hx : 1 Hx Para: 0 Hx Total # of Abortions (Spona: 0 Delivery History Hx Blood Disorders: No Adverse Rxn to Tranfusion: No Patient Past Medical History n/a Social History/Family History Recent Infectious Disease Expo: No Alcohol Use: Denies Use Recreational Drug Use: No Immunizations Hepatitis A: Yes Hepatitis B: Yes Tetanus Booster (TDap): Unknown OB - Admission Exam Physical Exam Date Seen by Provider: Mar 21, 2017 Time Seen by Provider: 08:20 Vitals: Vital Signs 03/21/17 03/21/17 07:25 09:00 Temp 98.2 Pulse 86 Resp 18 B/P (MAP) 124/78 Pulse Ox 99 O2 Delivery Room Air HEENT: NCAT Heart: Rhythm Normal Lungs: Clear Abdomen: Gravid Extremities: Normal Reflexes: Normal Cervical Dilatation: 6cm Effacement: 100% Station: -1 Membranes: Ruptured Amniotic Fluid: Clear Heart Rate: 130's Accelerations: Accelerations Present Decelerations: No Decelerations Short Term Variability: Present Group Home Variability: Average (6-25) Contractions on Admission: < 5 Minutes Apart Intensity: Firm Zuniga Scoring Tool (Modified) Dilation (cm): 1-2cm (1) Effacement (%): 51-79% (2) Descent/Station: -1,0 (2) Cervix Consistency: Soft (2) Cervix Position: Anterior (2) Zuniga Score: 8 Labs Laboratory Tests Test 03/20/17 19:25 03/20/17 20:15 Range/Units White Blood Count 12.2 H 4.3-11.0 10^3/uL Red Blood Count 3.93 L 4.35-5.85 10^6/uL Hemoglobin 12.2 11.5-16.0 G/DL Hematocrit 36 35-52 % Mean Corpuscular Volume 92 80-99 FL Mean Corpuscular Hemoglobin 31 25-34 PG Mean Corpuscular Hemoglobin Concent 34 32-36 G/DL Red Cell Distribution Width 12.9 10.0-14.5 % Platelet Count 200 130-400 10^3/uL Mean Platelet Volume 11.5 H 7.4-10.4 FL Neutrophils (%) (Auto) 76 H 42-75 % Lymphocytes (%) (Auto) 18 12-44 % Monocytes (%) (Auto) 5 0-12 % Eosinophils (%) (Auto) 1 0-10 % Basophils (%) (Auto) 0 0-10 % Neutrophils # (Auto) 9.3 H 1.8-7.8 X 10^3 Lymphocytes # (Auto) 2.2 1.0-4.0 X 10^3 Monocytes # (Auto) 0.6 0.0-1.0 X 10^3 Eosinophils # (Auto) 0.1 0.0-0.3 10^3/uL Basophils # (Auto) 0.0 0.0-0.1 10^3/uL Urine Color YELLOW Urine Clarity SLIGHTLY CLOUDY Urine pH 6.5 5-9 Urine Specific [place] 1.015 L 1.016-1.022 Urine Protein NEGATIVE NEGATIVE Urine Glucose (UA) NEGATIVE NEGATIVE Urine Ketones NEGATIVE NEGATIVE Urine Nitrite NEGATIVE NEGATIVE Urine Bilirubin NEGATIVE NEGATIVE Urine Urobilinogen NORMAL NORMAL MG/DL Urine Leukocyte Esterase 1+ H NEGATIVE Urine RBC (Auto) NEGATIVE NEGATIVE Urine RBC NONE /HPF Urine WBC 2-5 /HPF Urine Squamous Epithelial Cells 10-25 H /HPF Urine Crystals NONE /LPF Urine Bacteria FEW H /HPF Urine Casts NONE /LPF Urine Mucus NEGATIVE /LPF Urine Culture Indicated NO OB - Assessment/Plan/Diagnosis Assessment Assessment: induction of labor Plan Plan: Induction Induction Method: per Misoprostol Protocol Other Plan Patient was admitted last evening and started on Cytotec. She received this through the evening. She received 1 dose of Dilaudid IV after which she obtained an epidural and was evaluated this morning by myself and found to be 6 cm as consistent with exam. Spontaneous rupture membranes occurred at approximately 130 a.m. Discharge Diagnosis Diagnosis: 21 yo @ 40.5 Post dates GBS neg Rubella Equivocal NYLA STERN DO Mar 21, 2017 9:54 am
[2017-03-21] MEDS ORDERED: LIDOCAINE/EPI 2% 1:200,00 (XYLOCAINE) 10 ML VIAL ONE (11:46)
[2017-03-21] MEDS ORDERED: OXYTOCIN/NORMAL SALINE 500 ML IV SCH (12:40)
[2017-03-21] MEDS ORDERED: TETANUS,DIPTH,PERTUSS P/F (BOOSTRIX) 0.5 ML VIAL IM ONE (12:45)
[2017-03-21] MEDS ORDERED: BENZOCAINE/MENTHOL (DERMOPLAST) 56 ML CAN TP PRN (12:45)
[2017-03-21] MEDS ORDERED: MEASLES,MUMPS,RUBELLA 1 EA INJ SQ ONE (12:45)
[2017-03-21] MEDS ORDERED: DIBUCAINE (NUPERCAINAL) 1% OINT 30 GM TOP PRN (12:45)
[2017-03-21] MEDS ORDERED: WITCH HAZEL(TUCKS) 40 EA JAR TOP PRN (12:45)
--- NOTE | 2017-03-21 12:46 | OB Labor & Delivery Record ---
L&D History Date of Service Date of Service: Mar 21, 2017 History Expected Date of Delivery: Mar 16, 2017 Gestational Age in Weeks: 40 Hx : 1 Hx Para: 0 Complications Events: Routine care Operative Indications (Cesarea: N/A-Vaginal Delivery Intrapartal Events: Ineffective Pushing L&D Stage1 Stage One Onset of Labor - Date: Mar 21, 2017 Monitors and Tracing Monitor Mode: External Heart Rate: 115 Station: -1 Short Term Variability: Present Presentation: Vertex Vital Signs VS - Last 72 Hours, by Label 03/20/17 03/20/17 03/20/17 03/20/17 20:00 21:00 22:00 23:00 Pulse 91 81 74 Resp 18 18 18 18 B/P (MAP) 134/85 125/85 128/82 O2 Delivery Room Air Room Air 03/21/17 03/21/17 03/21/17 03/21/17 00:00 01:00 02:00 02:30 Temp 98.6 Pulse 81 75 64 Resp 18 18 18 18 B/P (MAP) 130/79 120/74 115/79 O2 Delivery Room Air Room Air Room Air Room Air 03/21/17 03/21/17 03/21/17 03/21/17 03:00 03:30 04:00 04:30 Temp 97.5 Pulse 66 67 66 65 Resp 18 18 18 18 B/P (MAP) 124/81 134/90 Pulse Ox 97 99 97 100 O2 Delivery Room Air Room Air Room Air Room Air 03/21/17 03/21/17 03/21/17 03/21/17 05:00 05:30 06:00 06:30 Pulse 68 71 68 88 Resp 18 18 18 18 B/P (MAP) 131/85 170/95 Pulse Ox 98 100 98 98 O2 Delivery Room Air Room Air Room Air Room Air 03/21/17 03/21/17 03/21/17 03/21/17 07:00 07:10 07:13 07:16 Pulse 78 87 96 91 Resp 18 18 18 18 B/P (MAP) 133/89 145/90 136/87 Pulse Ox 99 98 98 98 O2 Delivery Room Air Room Air Room Air Room Air 03/21/17 03/21/17 03/21/17 03/21/17 07:25 07:27 07:30 07:35 Temp 98.2 Pulse 80 75 79 86 Resp 18 18 18 18 B/P (MAP) 129/77 125/75 119/71 117/71 Pulse Ox 98 99 99 99 O2 Delivery Room Air Room Air Room Air Room Air 03/21/17 03/21/17 03/21/17 03/21/17 07:40 07:45 07:50 07:55 Pulse 84 87 90 90 Resp 18 18 18 18 B/P (MAP) 119/77 125/77 119/77 118/74 Pulse Ox 100 99 100 100 O2 Delivery Room Air Room Air Room Air Room Air 03/21/17 03/21/17 03/21/17 03/21/17 08:00 08:15 08:30 08:45 Pulse 90 87 85 101 Resp 18 18 18 18 B/P (MAP) 115/73 118/76 118/77 Pulse Ox 98 99 99 99 O2 Delivery Room Air Room Air Room Air Room Air 03/21/17 03/21/17 03/21/17 09:00 09:15 09:30 Pulse 86 83 83 Resp 18 18 18 B/P (MAP) 124/78 113/71 113/71 Pulse Ox 99 99 99 O2 Delivery Room Air Room Air Room Air Rupture of Membranes Spontaneous Ruture of Membrane: Yes Amniotic Membrane Rupture Time: 0209 Amniotic Fluid Membrane Tests: Nitrazine Positive Vaginal Bleeding Description: Normal Show Induction/Anesthesia Epidural Cath Placement - Time: 0702 Progress/Notes Patient progressed after Cytotec dosing and contractions induced by such. Spontaneous rupture membranes occurred, epidural was obtained by patient and she quickly progressed to complete and 0 station. She is allowed to labor down for 1 hour and then began pushing. L&D Stage2 Stage Two Stage II Date: Mar 21, 2017 Monitors and Tracing Monitor Mode: External Heart Rate: 115 Position: Right Occiput Anterior Presentation: Vertex Cord Descript/Complications Cord Vessel Description: 3 Vessels Complications Nuchal cord reduced 1. Patient pushed effectively the fetus to +2 station with a small crown noted however at that point pushed ineffectively for the next hour. Despite adequate insertion and maternal exhaustion the patient did not progress the passed this point. That point I requested it Kiwi vacuum extractor and briefly covered with the patient the risk involved in such. A right mediolateral episiotomy was performed as anticipated laceration was going to occur. The cup of the Kiwi vacuum extractor was placed over the mid sagittal suture, upon first application I applied 500 mg of mercury and with the next contraction the patient pushed in gentle extension was applied over pop off occurred, I feel there was no secure suction at that time. With the next push the vacuum was reapplied and again not adequate suction was applied as a Kiwi popped off easily. We waited to the next contraction in between I reapplied the Kiwi and with gentle extension of the head I was able to deliver the after applying 500 mmHg over an episiotomy. Delivery Type Infant Delivery Method: Low Vacuum Extraction Anterior Shoulder: Right Episiotomy/Perineal Laceration Laceraction(s)/Extensions: Yes Episiotomy Description: Right Mediolateral Location Modifier: Right Degree (describe repair) Right medial lateral episiotomy repaired using 3-0 and 2-0 Vicryl suture in normal fashion Condition of Infant Delivery 1 minute Comment: 8 5 minute Comment: 9 Notes Live male weight pending, infant went directly skin the skin Condition of Condition of : Living Exam: No Observed Abnormalities Resuscitation Resuscitation: N/A - Spontaneous Resp L&D Stage3 Stage Three Stage III Date: Mar 21, 2017 Pictocin Pitocin Administration Comment: 30 mu wide open Placenta Delivery Placenta Delivery: Spontaneous Delivery Summary Summary blood loss >1000ml: No Vaginal blood loss >500ml: No 350 Attending at delivery: Nyla Stern DO Condition of Delivery Examined: Cervix Examined, Uterus Explored Post Hemorrhage: No Condition of Mother Stable Condition of Infant (s) Stable NYLA STERN DO Mar 21, 2017 12:46
[2017-03-21] MEDS: IBUPROFEN 600 MG (MOTRIN) TAB PO SCH ×2 (13:33→18:49)
[2017-03-21] MEDS ORDERED: CATHETER FLUSH 10 ML SYR IV SCH (14:00)
[2017-03-21] MEDS: APAP 300 MG/CODEINE 30 MG (TYLENOL #3) TAB PO PRN ×2 (16:41→23:15)
[2017-03-22] MEDS: IBUPROFEN 600 MG (MOTRIN) TAB PO SCH ×3 (00:06→11:57)
[2017-03-22] MEDS: DOCUSATE SODIUM 100 MG (COLACE) CAP PO SCH ×2 (00:06→09:58)
[2017-03-22 00:09] VITALS: BP 126/83
[2017-03-22 04:30] VITALS: BP 116/76
[2017-03-22 06:30] LABS: BASOPHILS % (AUTO) 0 % (0-10); EOSINOPHILS # (AUTO) 0.1 10^3/uL (0.0-0.3); EOSINOPHILS % (AUTO) 1 % (0-10); LYMPHOCYTES # (AUTO) 2.9 X 10^3 (1.0-4.0); LYMPHOCYTES % (AUTO) 23 % (12-44); MEAN CORPUSCULAR HGB CONC 33 G/DL (32-36); MEAN CORPUSCULAR VOLUME 95 FL (80-99); MEAN PLATELET VOLUME 11.2 FL (7.4-10.4); MONOCYTES # (AUTO) 0.6 X 10^3 (0.0-1.0); MONOCYTES % (AUTO) 5 % (0-12); NEUTROPHILS % (AUTO) 71 % (42-75); PLATELET COUNT 157 10^3/uL (130-400); RED BLOOD COUNT 3.05 10^6/uL (4.35-5.85); WHITE BLOOD COUNT 12.6 10^3/uL (4.3-11.0)
[2017-03-22 06:32] LABS: MEAN CORPUSCULAR HEMOGLOBIN 31 PG (25-34)
[2017-03-22] MEDS ORDERED: FERROUS SULF 325 MG (IRON) TAB PO SCH (09:00)
[2017-03-22] MEDS ORDERED: IBUP-1773 PO (09:00)
[2017-03-22] MEDS ORDERED: FERR-74 PO (09:00)
[2017-03-22] MEDS ORDERED: ACET1TAB43 PO (09:00)
[2017-03-22] MEDS ORDERED: BENZ56AE2 TP (09:00)
[2017-03-22] MEDS ORDERED: DOCU100C37 PO (09:00)
--- NOTE | 2017-03-22 09:00 | Discharge Inst-Women's Service ---
Discharge Inst-Women's Serv Depart Medication/Instructions New, Converted or Re-Newed RX: RX on Chart Consults/Follow Up Additional Follow Up: Yes Orders/Referrals Dr. Stern in 6 weeks Activity Activity: Activity as Tolerated Driving Instructions: No Driving for 1 Week NO SMOKING: NO SMOKING Nothing Inside Vagina: No Douching, No [place], No Tampons Diet Discharge Diet: No Restrictions Symptoms to Report to : Bleeding Excessive, Pain Increased, Fever Over 101 Degrees F, Vaginal Bleeding Increase, Questions/Concerns For Any Problems or Questions: Contact Your Physician Skin/Wound Care Bathing Instructions: Shower (x 2 weeks) NYLA STERN DO Mar 22, 2017 09:00
--- NOTE | 2017-03-22 09:32 | Progress Note-Standard ---
Standard Progress Note Progress Notes/Assess & Plan Date Seen by Provider: Mar 22, 2017 Time Seen by Provider: 09:15 Progress/Assessment & Plan Patient doing well PPD 1 VAVD. Reports tailbone is sore, but otherwise pain is well controlled. SHe is ambulating and voiding freely. Lochia has slowed down and is very light. Vital Sign - Last 24 Hours 03/21/17 03/21/17 03/21/17 03/21/17 09:45 10:00 10:15 10:30 Temp 97.5 Pulse 88 92 81 86 Resp 18 18 18 18 B/P (MAP) 128/85 132/87 129/82 124/80 Pulse Ox 99 99 99 99 O2 Delivery Room Air Room Air Room Air Room Air 03/21/17 03/21/17 03/21/17 03/21/17 10:45 11:00 11:15 11:30 Pulse 96 Resp 18 18 18 18 B/P (MAP) 137/92 O2 Delivery Room Air Room Air Room Air Room Air 03/21/17 03/21/17 03/21/17 03/21/17 11:45 12:15 12:30 12:45 Temp 99.9 Pulse 109 106 110 Resp 18 20 18 18 B/P (MAP) 128/73 120/74 124/73 O2 Delivery Room Air Room Air Room Air Room Air 03/21/17 03/21/17 03/21/17 03/21/17 13:00 13:15 13:30 13:45 Pulse 97 100 103 90 Resp 18 18 18 18 B/P (MAP) 124/73 126/74 118/56 108/76 O2 Delivery Room Air Room Air Room Air Room Air 03/21/17 03/21/17 03/21/17 03/21/17 14:00 14:15 16:15 21:20 Temp 98.5 98.1 98.1 Pulse 104 100 89 92 Resp 18 18 18 18 B/P (MAP) 112/71 112/68 125/80 132/84 Pulse Ox 98 98 O2 Delivery Room Air Room Air Room Air Room Air 03/22/17 03/22/17 00:09 04:30 Temp 98.4 Pulse 97 77 Resp 18 18 B/P (MAP) 126/83 116/76 Pulse Ox 98 100 O2 Delivery Room Air Room Air Uterine fundus firm and below umbilicus Laboratory Tests Test 03/22/17 06:05 Range/Units White Blood Count 12.6 H 4.3-11.0 10^3/uL Red Blood Count 3.05 L 4.35-5.85 10^6/uL Hemoglobin 9.6 #L 11.5-16.0 G/DL Hematocrit 29 L 35-52 % Mean Corpuscular Volume 95 80-99 FL Mean Corpuscular Hemoglobin 31 25-34 PG Mean Corpuscular Hemoglobin Concent 33 32-36 G/DL Red Cell Distribution Width 13.0 10.0-14.5 % Platelet Count 157 130-400 10^3/uL Mean Platelet Volume 11.2 H 7.4-10.4 FL Neutrophils (%) (Auto) 71 42-75 % Lymphocytes (%) (Auto) 23 12-44 % Monocytes (%) (Auto) 5 0-12 % Eosinophils (%) (Auto) 1 0-10 % Basophils (%) (Auto) 0 0-10 % Neutrophils # (Auto) 9.0 H 1.8-7.8 X 10^3 Lymphocytes # (Auto) 2.9 1.0-4.0 X 10^3 Monocytes # (Auto) 0.6 0.0-1.0 X 10^3 Eosinophils # (Auto) 0.1 0.0-0.3 10^3/uL Basophils # (Auto) 0.0 0.0-0.1 10^3/uL Diagnosis: PPD 1 VAVD Acute blood loss anemia P: Replace iron DC later today pending release PP precautions reviewed. NYLA STERN DO Mar 22, 2017 9:32 am
[2017-03-22 12:07] VITALS: BP 119/77
[2017-03-22] MEDS ORDERED: MEASLES,MUMPS,RUBELLA 1 EA INJ ONE (13:54)
--- NOTE | 2017-03-22 14:22 | Anesthesia-Regional Post-Op ---
Regional Patient Condition Mental Status: Alert, Oriented x3 Circulation: Same as Pre-Op Headache: Absent Sensation: Full Recovery Motor Block: Absent Post Op Complications Complications None Follow Up Care/Instructions Patient Instructions None needed. Anesthesia/Patient Condition Patient is doing well, no complaints, stable vital signs, no apparent adverse anesthesia problems. No complications reported per nursing. TANYA RACHEL CRNA Mar 22, 2017 14:22
== END 2017-03-22 14:45 | disposition home or self-care (01) | DRG 775 ==
LOC: LDRP 19:00
PROVIDERS: ADMIT Obstetrics & Gynecology; ATTEND Obstetrics & Gynecology
PROC: 3E0P7GC Introduction of Other Therapeutic Substance into Female Reproductive, Via Natural or Artificial Opening (ICD-10-PCS; 2017-03-20)
PROC: 0W8NXZZ Division of Female Perineum, External Approach (ICD-10-PCS; principal; 2017-03-21)
PROC: 10D07Z6 Extraction of Products of Conception, Vacuum, Via Natural or Artificial Opening (ICD-10-PCS; 2017-03-21)
DX: O48.0 Post-term pregnancy (principal); O69.81X0 Labor and delivery complicated by cord around neck, without compression, not applicable or unspecified; O90.81 Anemia of the puerperium; D62 Acute posthemorrhagic anemia; Z3A.40 40 weeks gestation of pregnancy; Z37.0 Single live birth; Z23 Encounter for immunization
CPT/HCPCS: 36415; 81000; 85025; 86850; 86900; 86901; 90707

== ENCOUNTER 2017-06-30 10:27 | Outpatient (RCR) | payer MEDICAID ==
[~2017-06-30 10:27] MED LIST changes: +ACET1TAB43 PO; +BENZ56AE2 TP; +DOCU100C37 PO; +DOXY25TA46 PO; +FERR-74 PO; +IBUP-1773 PO
== END 2017-07-17 10:25 | disposition home or self-care (01) ==
PROVIDERS: ATTEND Obstetrics & Gynecology
DX: M53.3 Sacrococcygeal disorders, not elsewhere classified (principal)

== ENCOUNTER 2020-02-29 12:07 | Emergency (ER) | payer SELFPAY ==
[~2020-02-29] VITALS: Ht 172.7 cm; Wt 58.9 kg
[~2020-02-29 12:07] MED LIST changes: -DOXY25TA46 PO; -FERR-74 PO; +FERR325T18 PO; +METR-145 PO; -METR500T21 PO; -OMEP10CA4 PO; +OMEP10CA5 PO; +UNISOM25 M1 PO
[2020-02-29] MEDS ORDERED: ONDANSETRON 4 MG/2 ML (SDV) Z0FRAN IVP ONE (12:30)
[2020-02-29] MEDS ORDERED: NS IV 1000 ML 1,000 ML IV SCH (12:30)
[2020-02-29] MEDS ORDERED: KETOROLAC 30 MG/ML VIAL IVP ONE (12:30)
[2020-02-29 12:42] LABS: BASOPHILS % (AUTO) 0 % (0-10); EOSINOPHILS % (AUTO) 0 % (0-10); HEMATOCRIT 44 % (35-52); HEMOGLOBIN 14.4 G/DL (11.5-16.0); LYMPHOCYTES # (AUTO) 0.5 X 10^3 (1.0-4.0); LYMPHOCYTES % (AUTO) 4 % (12-44); MEAN CORPUSCULAR HEMOGLOBIN 31 PG (25-34); MEAN CORPUSCULAR HGB CONC 33 G/DL (32-36); MEAN CORPUSCULAR VOLUME 94 FL (80-99); MONOCYTES # (AUTO) 0.9 X 10^3 (0.0-1.0); MONOCYTES % (AUTO) 8 % (0-12); NEUTROPHILS % (AUTO) 88 % (42-75); PLATELET COUNT 225 10^3/uL (130-400); RED CELL DISTRIBUTION WIDTH 13.9 % (10.0-14.5); WHITE BLOOD COUNT 11.4 10^3/uL (4.3-11.0)
[2020-02-29 12:56] LABS: ALBUMIN 4.5 GM/DL (3.2-4.5)
[2020-02-29 12:57] LABS: AMYLASE 32 U/L (25-125); CHLORIDE 101 MMOL/L (98-107); POTASSIUM 3.6 MMOL/L (3.6-5.0); SODIUM 135 MMOL/L (135-145)
[2020-02-29 12:58] LABS: CALCIUM 9.6 MG/DL (8.5-10.1)
[2020-02-29 12:59] LABS: GLUCOSE 99 MG/DL (70-105)
[2020-02-29 13:00] LABS: CARBON DIOXIDE 20 MMOL/L (21-32)
[2020-02-29 13:01] LABS: BILIRUBIN,TOTAL 0.9 MG/DL (0.1-1.0)
[2020-02-29 13:02] LABS: ALKALINE PHOSPHATASE 81 U/L (40-136)
[2020-02-29 13:03] LABS: CREATININE SERUM 0.89 MG/DL (0.60-1.30); GFR ESTIMATED > 60
[2020-02-29 13:04] LABS: BUN/CREATININE RATIO 7
[2020-02-29 13:06] LABS: ALANINE AMINOTRANSFERASE 15 U/L (0-55); LIPASE 13 U/L (8-78)
--- NOTE | 2020-02-29 13:17 | Diagnostic Imaging Report ---
INDICATION: Followup of left kidney stone. EXAMINATION: KUB. FINDINGS: No calculi are seen overlying the kidneys or path of the ureters or bladder. There is a normal stool and gas pattern. No organomegaly. IMPRESSION: Normal KUB. Dictated by: Dictated on workstation # [id number]
[2020-02-29 13:21] LABS: BAND NEUTROPHILS 6 %; LYMPHOCYTES % (MANUAL) 4 %; MONOCYTES % (MANUAL) 6 %; NEUTROPHILS % (MANUAL) 84 %
[2020-02-29 13:22] LABS: RBC MORPH NORMAL
--- NOTE | 2020-02-29 13:38 | Diagnostic Imaging Report ---
EXAMINATION: CT Abdomen Pelvis without contrast. TECHNIQUE: Multiple contiguous axial images were obtained through the abdomen and pelvis without the use of intravenous contrast. All CT scans use one or more of the following dose optimizing techniques: automated exposure control, MA and/or KvP adjustment based on a patient size and exam type, or iterative reconstruction. HISTORY: Left flank pain COMPARISON: 05/20/2016 FINDINGS: Limited views of the lower thorax are unremarkable. The liver is normal without focal lesion. There is no biliary ductal dilation. Gallbladder is normal. Pancreas is normal. Spleen is normal. Adrenal glands are normal. The kidneys are normal. There is no hydronephrosis. Urinary bladder is normal. There are no renal or ureteral stones. Visualized bowel is normal in caliber without obstruction or inflammation. No free fluid or air. No abdominal or pelvic lymphadenopathy. Aorta is normal in caliber without aneurysm. There are no suspicious osseus lesions. IMPRESSION: 1. No renal or ureteral stones, no acute abnormality in the abdomen or pelvis. Dictated by: Dictated on workstation # [id number]
[2020-02-29 13:48] LABS: BILIRUBIN,URINE NEGATIVE (NEGATIVE); CLARITY,URINE SL CLOUDY; COLOR,URINE YELLOW; GLUCOSE, URINE (UA) NEGATIVE (NEGATIVE); KETONES,URINE TRACE (NEGATIVE); LEUKOCYTE ESTERASE ,URINE 3+ (NEGATIVE); NITRITE,URINE POSITIVE (NEGATIVE); PH,URINE 6.5 (5-9); PROTEIN,URINE NEGATIVE (NEGATIVE)
[2020-02-29 13:59] LABS: AMORPHOUS SEDIMENT,UR FEW AMOR URATES /LPF; BACTERIA,URINE FEW /HPF; WBC,URINE 25-50 /HPF
[2020-02-29] MEDS ORDERED: ACETAMINOPHEN 500 MG TAB (TYLENOL) PO ONE (14:00)
--- NOTE | 2020-02-29 14:05 | ED Back Pain ---
General Chief Complaint: Back Problems Stated Complaint: L SIDE PAIN;CHILLS Nursing Triage Note: pt reports left flank pain. went to [facility] on friday, was told to come to ed if symtoms worse and she because nauseated. Nursing Sepsis Screen: Possible Sepsis Risk Source of Information: Patient Exam Limitations: No Limitations History of Present Illness Date Seen by Provider: Feb 29, 2020 Time Seen by Provider: 12:21 Initial Comments 24-year-old female who presents to emergency room with complaints of left flank pain that started 3 days ago. She reports that she was seen and evaluated at [facility] walk-in over the weekend and they informed her that they believe that she was having a kidney stone due to the amount of blood in her urine. She reports that she increased her fluid intake to help flush out her kidneys and has been using Tylenol and ibuprofen without much improvement. She did develop fever, chills, nausea and vomiting and worsening low back pain today. Associated Symptoms: fever, lower back pain Allergies and Home Medications Allergies Coded Allergies: No Known Drug Allergies (Unverified , 01/09/11) Home Medications Acetaminophen with Codeine 1 Each Tablet, 1-2 TAB PO Q4H PRN for PAIN-MODERATE Prescribed by: NYLA STERN on 03/22/17899 Benzocaine/Menthol 56 Gm Aerosol, 56 ML TP UD PRN for PAIN- SEE INSTRUCTIONS Prescribed by: NYLA STERN on 03/22/17899 Docusate Sodium 100 Mg Capsule, 100 MG PO BID PRN for CONSTIPATION-1ST LINE Prescribed by: NYLA STERN on 03/22/17899 Doxylamine Succinate 25 Mg Tablet, 25 MG PO HS, (Reported) Ferrous Sulfate 325 Mg Tablet, 325 MG PO DAILY Prescribed by: NYLA STERN on 03/22/17 09 Ibuprofen 600 Mg Tablet, 600 MG PO Q6H Prescribed by: NYLA STERN on 03/22/17 09 Omeprazole 10 Mg Capsule.dr, 10 MG PO PRN, (Reported) Pnv #116/Iron Fumarate/FA/Dha 1 Each Combo..pkg, 1 EACH PO DAILY, (Reported) Patient Home Medication List Home Medication List Reviewed: Yes Review of Systems Constitutional: see HPI, chills, fever Genitourinary: see HPI, hematuria Musculoskeletal: see HPI, back pain All Other Systems Reviewed Negative Unless Noted: Yes Past Kbekaql-Bkywpy-Qukzyc Hx Past Med/Social Hx: Reviewed Nursing Past Med/Soc Hx Patient Social History Alcohol Use: Occasionally Uses Recreational Drug Use: No (marijuana, etoh 2x weekly, 1/2ppd) Smoking Status: Former Smoker Type Used: Cigarettes Former Smoker, Quit: Jul 03, 2016 Recent Foreign Travel: No Contact w/Someone Who Travel: No Recent Infectious Disease Expo: No Recent Hopitalizations: No Physical Abuse: No Sexual Abuse: No Immunizations Up To Date Tetanus Booster (TDap): Unknown PED Vaccines UTD: Yes Seasonal Allergies Seasonal Allergies: No Past Medical History Surgeries: No Respiratory: No Cardiac: No Neurological: No Reproductive Disorders: No Genitourinary: Yes Kidney Stones Gastrointestinal: Yes Chronic Constipation Musculoskeletal: No Endocrine: No HEENT: No Cancer: No Psychosocial: Yes Anxiety Integumentary: No Blood Disorders: No (anemia in ) Adverse Reaction/Blood Tranf: No Family Medical History Reviewed Nursing Family Hx Dysphasia 19 FATHER FH: emphysema No Pertinent Family Hx Physical Exam Vital Signs Vital Signs - First Documented 02/29/20 13:07 Temp 37.7 Pulse 139 Resp 16 B/P (MAP) 123/90 (101) Pulse Ox 98 Capillary Refill : Less Than 3 Seconds Height, Weight, BMI Height: 5'6.00" Weight: 192lbs. 2.0oz. 87.098143ua; 19.00 BMI Method:Stated General Appearance: No Apparent Distress, WD/WN Cardiovascular: Regular Rate, Rhythm, No Edema, No Gallop, No JVD, No Murmur, Normal Peripheral Pulses Respiratory: Chest Non Tender, Lungs Clear, Normal Breath Sounds, No Accessory Muscle Use, No Respiratory Distress, Accessory Muscle Use Gastrointestinal: Normal Bowel Sounds, No Organomegaly, No Pulsatile Mass, Non Tender, Soft Back: Normal Inspection, No CVA Tenderness, No Vertebral Tenderness Extremity: Normal Capillary Refill Neurologic/Psychiatric: Alert, Oriented x3, Normal Mood/Affect Skin: Warm/Dry Progress/Results/Core Measures Results/Orders Lab Results Laboratory Tests Test 02/29/20 12:30 02/29/20 13:34 Range/Units White Blood Count 11.4 H 4.3-11.0 10^3/uL Red Blood Count 4.66 4.35-5.85 10^6/uL Hemoglobin 14.4 11.5-16.0 G/DL Hematocrit 44 35-52 % Mean Corpuscular Volume 94 80-99 FL Mean Corpuscular Hemoglobin 31 25-34 PG Mean Corpuscular Hemoglobin Concent 33 32-36 G/DL Red Cell Distribution Width 13.9 10.0-14.5 % Platelet Count 225 130-400 10^3/uL Mean Platelet Volume 10.0 7.4-10.4 FL Neutrophils (%) (Auto) 88 H 42-75 % Lymphocytes (%) (Auto) 4 L 12-44 % Monocytes (%) (Auto) 8 0-12 % Eosinophils (%) (Auto) 0 0-10 % Basophils (%) (Auto) 0 0-10 % Neutrophils # (Auto) 10.0 H 1.8-7.8 X 10^3 Lymphocytes # (Auto) 0.5 L 1.0-4.0 X 10^3 Monocytes # (Auto) 0.9 0.0-1.0 X 10^3 Eosinophils # (Auto) 0.0 0.0-0.3 10^3/uL Basophils # (Auto) 0.0 0.0-0.1 10^3/uL Neutrophils % (Manual) 84 % Lymphocytes % (Manual) 4 % Monocytes % (Manual) 6 % Band Neutrophils 6 % Blood Morphology Comment NORMAL Sodium Level 135 135-145 MMOL/L Potassium Level 3.6 3.6-5.0 MMOL/L Chloride Level 101 98-107 MMOL/L Carbon Dioxide Level 20 L 21-32 MMOL/L Anion Gap 14 5-14 MMOL/L Blood Urea Nitrogen 6 L 7-18 MG/DL Creatinine 0.89 0.60-1.30 MG/DL Estimat Glomerular Filtration Rate > 60 BUN/Creatinine Ratio 7 Glucose Level 99 70-105 MG/DL Calcium Level 9.6 8.5-10.1 MG/DL Corrected Calcium 9.2 8.5-10.1 MG/DL Total Bilirubin 0.9 0.1-1.0 MG/DL Aspartate Amino Transf (AST/SGOT) 21 5-34 U/L Alanine Aminotransferase (ALT/SGPT) 15 0-55 U/L Alkaline Phosphatase 81 40-136 U/L Total Protein 8.0 6.4-8.2 GM/DL Albumin 4.5 3.2-4.5 GM/DL Amylase Level 32 25-125 U/L Lipase 13 8-78 U/L Urine Color YELLOW Urine Clarity SL CLOUDY Urine pH 6.5 5-9 Urine Specific Volant <=1.005 1.016-1.022 Urine Protein NEGATIVE NEGATIVE Urine Glucose (UA) NEGATIVE NEGATIVE Urine Ketones TRACE H NEGATIVE Urine Nitrite POSITIVE H NEGATIVE Urine Bilirubin NEGATIVE NEGATIVE Urine Urobilinogen 0.2 < = 1.0 MG/DL Urine Leukocyte Esterase 3+ H NEGATIVE Urine RBC (Auto) 1+ H NEGATIVE Urine RBC 2-5 H /HPF Urine WBC 25-50 H /HPF Urine Crystals PRESENT H /LPF Urine Amorphous Sediment FEW BOOKER URATES H /LPF Urine Bacteria FEW H /HPF Urine Casts NONE /LPF Urine Mucus NEGATIVE /LPF Urine Culture Indicated YES My Orders Orders - SWETA ORELLANA Ua Culture If Indicated (02/29/20 12:18) Urine Bedside (02/29/20 12:18) Ketorolac Injection (Toradol Injection) (02/29/20 12:30) Ondansetron Injection (Zofran Injectio (02/29/20 12:30) Ns Iv 1000 Ml (Sodium Chloride 0.9%) (02/29/20 12:30) Comprehensive Metabolic Panel (02/29/20 12:28) Lipase (02/29/20 12:28) Amylase (02/29/20 12:28) Ed Iv/Invasive Line Start (02/29/20 12:28) Cbc With Automated Diff (02/29/20 12:28) Ct Abd/Pelvis Wo(Kidney Stone) (02/29/20 12:28) Abdomen/Kub 1view (02/29/20 12:28) Manual Differential (02/29/20 12:30) Acetaminophen Tablet (Tylenol Tablet) (02/29/20 14:00) Urine Culture (02/29/20 13:34) Ceftriaxone For Iv Use (Rocephin For I (02/29/20 14:15) Medications Given in ED Current Medications Medications Dose Ordered Sig/Mari Route Start Time Stop Time Status Last Admin Dose Admin Acetaminophen 1,000 mg ONCE ONCE PO 02/29/20 14:00 02/29/20 14:01 DC 02/29/20 14:09 1,000 MG Ceftriaxone Sodium 1000 mg/ Sterile Water 10 ml @ 200 mls/hr ONCE ONCE IV 02/29/20 14:15 02/29/20 14:17 DC 02/29/20 14:15 200 MLS/HR Ketorolac Tromethamine 30 mg ONCE ONCE IVP 02/29/20 12:30 02/29/20 12:31 DC 02/29/20 12:48 30 MG Ondansetron HCl 4 mg ONCE ONCE IVP 02/29/20 12:30 02/29/20 12:31 DC 02/29/20 12:48 4 MG Vital Signs/I&O 02/29/20 02/29/20 13:07 14:09 Temp 37.7 37.7 Pulse 139 Resp 16 B/P (MAP) 123/90 (101) Pulse Ox 98 Blood Pressure Mean: 101 Progress Progress Note : Time: 14:04 Progress Note I have seen and evaluated the patient. She is feeling better at this time. She reports that her nausea and vomiting have resolved and her back/flank pain is gone. Her urine is pending at this time. Departure Impression Primary Impression: UTI (urinary tract infection) Disposition: 01 HOME, SELF-CARE Condition: Stable/Unchanged Departure-Patient Inst. Decision time for Depature: 14:44 Referrals: NYLA STERN DO (PCP) Primary Care Physician Patient Instructions: Urinary Tract Infection, Adult (DC) Add. Discharge Instructions: Take medication as directed. Drink plenty of fluids to stay hydrated and to flush out your kidneys. Return back to the emergency room for worsening symptoms or concerns as needed. Follow-up with primary care provider within 1 week for recheck. All discharge instructions reviewed with patient and/or family. Voiced understanding. Scripts Ondansetron (Ondansetron Odt) 4 Mg Tab.rapdis 4 MG PO Q4H for 7 Days, #30 TAB Prov: SWETA ORELLANA 02/29/20 Nitrofurantoin Monohyd/M-Cryst (Macrobid 100 mg Capsule) 100 Mg Capsule 1 TAB PO BID PRN for 5 Days, #10 CAP Prov: SWETA ORELLANA 02/29/20 SWETA ORELLANA Feb 29, 2020 14:04
[2020-02-29] MEDS ORDERED: cefTRIAXone FOR IV USE 1,000 MG in WATER (STERILE) FOR INJECTION 10 ML IV ONE (14:15)
[2020-02-29] MEDS ORDERED: NITR-65 PO (14:46)
[2020-02-29] MEDS ORDERED: ONDA4TAB11 PO (14:46)
[2020-02-29 15:12] VITALS: BP 112/73
--- OUTSIDE RECORDS SUMMARY | 2020-02-29 16:05 | XMS REPORT ---
Author Author Ana Laura Busch Organization [facility] Address [address] [place] [address] Care Team Providers Care Phone Engineer Name Role Phone JODI Busch Unavailable PROBLEMS Type Condition ICD9-CM Code [id number] Code Onset Dates Condition S tatus SNOMED Code Problem Generalized anxiety disorder F41.1 A ctive 05101848 Problem Major depressive disorder, recurrent, mild F33.0 Active 480639152 Problem Depression F32.9 Active 65979480 Problem Major depressive disorder, recurrent episode, moderate F33.1 Active 161623637 Problem Routine health maintenance Z00.00 Act ruben 245360322 Problem 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 Active 347915833 Problem Low back pain M54.5 Active 928164 009 Problem Post depression F53 Active 24557375 Problem History of substance abuse Z87.898 Act ruben 049331422 Problem Genital warts A63.0 Active 402724 007 Problem Anxiety F41.9 Active 55950968 Problem Other chronic pain G89.29 Active 8 6082763 Problem OAB (overactive bladder) N32.81 Activ e 937687518 Problem KIESHA (generalized anxiety disorder) F41.1 Active 25661762 Problem Moderate episode of recurrent major depressive disorder F33.1 Active 023569871 ALLERGIES No Information ENCOUNTERS Encounter Location Date Diagnosis [facility] [address] [id number] [place] [address] Sep, Genital warts A63.0 [facility] [address] [facility] [place] [address] Aug, Well woman exam Z01.419 ; Screening for cervical cancer Z12.4 ; Screening examination for sexually transmitted disease Z11.3 ; Genital warts A63.0 and Encounter for immunization Z23 [facility] [address] [facility] [id number] [address] [place] [phone] Apr, Rash R21 [facility] [address] [place] [id number] [place] [id number] Jan, Epigastric abdominal pain R1 0.13 and Acute gastritis without hemorrhage, unspecified gastritis type K29.00 [facility] [id number] [place] [address] December, [facility] [address] [address] December, Grade I hemorrhoids K64.0 [facility] [id number] [place] [phone] December, Hemorrhoids, thrombosed K64. 5 [facility] [id number] [place] [phone] Aug, Herpes labialis B00.1 [facility] [address] [id number] [address] Aug, [facility] [id number] [place] [address] December, Other sites of candidiasis B 37.89 and Infection of nipple associated with the puerperium O91.02 [facility] [address] [id number] December, Dental examination Z01.20 [facility] [address] [id number] December, Encounter for dental examination Z01.20 [facility] [address] [address] Oct, [facility] [address] [address] Oct, Moderate episode of recurrent major depr essive disorder F33.1 ; Post depression F53 and KIESHA (generalized anxiety disorder) F41.1 [facility] [address] [id number] Sep, Dental examination Z01.20 [facility] [address] [id number] Jun, Dental examination Z01.20 [facility] [address] [address] Apr, Dental examination Z01.20 [facility] [address] [id number] Mar, Encounter for dental examination Z01.20 [facility] [address] [address] Mar, Screening, anemia, deficiency, iron Z13. 0 [facility] [address] [id number] Sep, Dental caries K02.9 [facility] [address] [address] Jul, Encounter for test Z32.00 [facility] [address] [address] Jun, Dental examination Z01.20 [facility] [address] [address] Jun, [place] [address] [address] Jun, Generalized anxiety disorder F41.1 and M faisalor depressive disorder, recurrent episode, moderate F33.1 [facility] [address] [address] May, [facility] [address] [address] May, [facility] [address] [address] May, Urinary frequency R35.0 and OAB (overact ruben bladder) N32.81 [facility] [address] [address] Mar, [facility] [address] [address] Mar, Generalized anxiety disorder F41.1 and Stewart fishman depressive disorder, recurrent episode, moderate F33.1 [place] [address] [address] Mar, Major depressive disorder, recurrent epi sode, moderate F33.1 ; Generalized anxiety disorder F41.1 and History of substance abuse Z87.898 [place] [address] [address] Mar, Anxiety F41.9 ; Depression F32.9 ; Gener alized anxiety disorder F41.1 and Severe episode of recurrent major depressive disorder, with psychotic features F33.3 [place] [address] [address] Mar, Major depressive disorder, recurrent, mi ld F33.0 and Anxiety F41.9 [place] [address] [address] Feb, Anxiety F41.9 ; Low back pain M54.5 and Other chronic pain G89.29 [place] [address] [address] Jan, [place] [address] [place] [id number] Jan, Major depressive disorder, recurrent epi sode, moderate F33.1 ; Generalized anxiety disorder F41.1 and History of substance abuse Z87.898 [place] [address] [address] Jan, Anxiety F41.9 ; Major depressive disorde r, recurrent, mild F33.0 ; Primary insomnia F51.01 and Acute left-sided low back pain with left-sided sciatica M54.42 [place] [address] [address] Jan, Major depressive disorder, recurrent epi sode, moderate F33.1 ; Generalized anxiety disorder F41.1 and History of substance abuse Z87.898 [place] [address] [place] [address] [id number] Jan, Major depressive disorder, recurrent epi sode, moderate F33.1 ; Generalized anxiety disorder F41.1 and History of substance abuse Z87.898 [place] [address] [address] December, Major depressive disorder, recurrent epi sode, moderate F33.1 ; Generalized anxiety disorder F41.1 and History of substance abuse Z87.898 [place] [address] [address] December, Routine health maintenance Z00.00 ; Medu llary sponge kidney Q61.5 ; Depression F32.9 ; Major depressive disorder, recurrent, mild F33.0 and Anxiety F41.9 [place] [address] [address] December, Routine health maintenance Z00.00 ; Medu llary sponge kidney Q61.5 ; Major depressive disorder, recurrent, mild F33.0 ; Depression F32.9 ; Anxiety F41.9 and History of substance abuse Z87.898 [place] [address] [address] December, Major depressive disorder, recurrent, mi ld F33.0 ; Depression F32.9 and Anxiety F41.9 [place] [address] [address] December, Anxiety F41.9 and Depression F32.9 [place] [address] [address] Nov, Depression F32.9 and Anxiety F41.[address] [address] Nov, Anxiety F41.9 ; Major depressive disorde r, recurrent, mild F33.0 ; Depression F32.9 ; Substance abuse F19.10 and Substance addiction F19.20 [place] [address] [address] Jul, [facility] [address] [address] Jul, [facility] [address] [address] Jun, Dysuria R30.0 ; Screening for malignant neoplasm of cervix Z12.4 ; Vaginal discharge N89.8 ; Costovertebral angle pain M54.9 ; Urinary frequency R35.0 ; Suprapubic pain R10.2 ; History of hematuria Z87.448 and History of recurrent UTIs Z87.440 [place] [address] [address] Feb, Anxiety, generalized 300.02 ; Social dillon esmer 300.23 ; Major depression 296.20 ; No condition on Douglas II V71.09 and No condition on axis III V71.09 [place] [address] [address] Feb, Panic disorder without agoraphobia 300.0 1 ; Depressive disorder, not elsewhere classified 311 and Douglas II diagnosis deferred 799.9 [place] [address] [address] Jan, Insect bite 919.4 [facility] [address] [address] 14 Nov, 2014 [facility] [address] [address] Nov, [facility] [address] [address] Jul, [facility] [address] [address] Jul, [facility] [address] [address] Oct, [facility] [address] [address] Oct, [facility] [address] [address] Oct, [facility] [address] [facility] [place] [address] Oct, [facility] [address] [facility] [place] [address] Oct, [facility] [address] [facility] [place] [address] Oct, [facility] [id number] [place] [address] Oct, [facility] [address] [facility] [place] [address] Oct, [facility] [id number] [place] [address] Sep, [facility] [address] [facility] [place] [address] Sep, [facility] [address] [facility] [place] [address] Aug, [facility] [address] [facility] [place] [address] Aug, [facility] [address] [facility] [place] [address] Sep, IMMUNIZATIONS No Known Immunizations SOCIAL HISTORY Never Assessed REASON FOR VISIT PLAN OF CARE VITAL SIGNS Height 67 in 2013-10-07 Weight 127.8 lbs 2013-10-07 Temperature 98.5 degrees Fahrenheit 2013-10-07 Heart Rate 84 bpm 2013-10-07 Respiratory Rate 20 2013-10-07 Blood pressure systolic 98 mmHg 2013-10-07 Blood pressure diastolic 58 mmHg 2013-10-07 MEDICATIONS Unknown Medications RESULTS No Results PROCEDURES Procedure Date Ordered Result Body Site TRICHOMONAS VAGIN, DIR PROBE October 07, 2013 CHYLMD TRACH, DNA, AMP PROBE October 07, 2013 CULTURE, BACTERIA, OTHER October 07, 2013 INSTRUCTIONS MEDICATIONS ADMINISTERED No Known Medications MEDICAL (GENERAL) HISTORY Type Description Date Medical History Medulary Sponge Kidneys Medical History Depression Medical History Anxiety Medical History colitis Medical History acid reflux following child Surgical History No Surgical history information Hospitalization History kidney stones 2010
--- OUTSIDE RECORDS SUMMARY | 2020-02-29 16:05 | XMS REPORT ---
Author Author Ana Laura Busch Organization [facility] Address [address] [place] [address] Care Team Providers Care Improvement Advisor Name Role Phone JODI Busch Unavailable PROBLEMS Type Condition ICD9-CM Code [id number] Code Onset Dates Condition S tatus SNOMED Code Problem Generalized anxiety disorder F41.1 A ctive 56006853 Problem Major depressive disorder, recurrent, mild F33.0 Active 622714027 Problem Depression F32.9 Active 60024804 Problem Major depressive disorder, recurrent episode, moderate F33.1 Active 110380910 Problem Routine health maintenance Z00.00 Act ruben 080496366 Problem 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 Active 070790326 Problem Low back pain M54.5 Active 333618 009 Problem Post depression F53 Active 91387764 Problem History of substance abuse Z87.898 Act ruben 398289285 Problem Genital warts A63.0 Active 004850 007 Problem Anxiety F41.9 Active 95493911 Problem Other chronic pain G89.29 Active 8 4198920 Problem OAB (overactive bladder) N32.81 Activ e 185766643 Problem KIESHA (generalized anxiety disorder) F41.1 Active 02047012 Problem Moderate episode of recurrent major depressive disorder F33.1 Active 374306104 ALLERGIES No Information ENCOUNTERS Encounter Location Date Diagnosis [facility] [address] [id number] [place] [address] Sep, Genital warts A63.0 [facility] [address] [facility] [place] [address] Aug, Well woman exam Z01.419 ; Screening for cervical cancer Z12.4 ; Screening examination for sexually transmitted disease Z11.3 ; Genital warts A63.0 and Encounter for immunization Z23 [facility] [address] [facility] [id number] [address] [place] [address] Apr, Rash R21 [facility] [address] [place] [id number] [address] [place] [address] Jan, Epigastric abdominal pain R1 0.13 and Acute gastritis without hemorrhage, unspecified gastritis type K29.00 [facility] [id number] [place] [address] December, [facility] [address] [address] December, Grade I hemorrhoids K64.0 [facility] [address] [place] [id number] [address] [place] [address] December, Hemorrhoids, thrombosed K64. 5 [facility] [address] [id number] [address] [place] [address] Aug, Herpes labialis B00.1 [facility] [address] [id number] [address] Aug, [facility] [address] [id number] [address] [place] [address] December, Other sites of candidiasis B 37.89 and Infection of nipple associated with the puerperium O91.02 [facility] [address] [id number] December, Dental examination Z01.20 [facility] [address] [id number] December, Encounter for dental examination Z01.20 [facility] [address] [address] Oct, [facility] [address] [address] Oct, Moderate episode of recurrent major depr essive disorder F33.1 ; Post depression F53 and KIESHA (generalized anxiety disorder) F41.1 [facility] [address] [id number] Sep, Dental examination Z01.20 [facility] [address] [id number] Jun, Dental examination Z01.20 [facility] [address] [address] Apr, Dental examination Z01.20 [facility] [address] [id number] Mar, Encounter for dental examination Z01.20 [facility] [address] [address] Mar, Screening, anemia, deficiency, iron Z13. 0 [facility] [address] [id number] Sep, Dental caries K02.9 [facility] [address] [address] Jul, Encounter for test Z32.00 [facility] [address] [address] Jun, Dental examination Z01.20 [facility] [address] [address] Jun, [place] [address] [address] Jun, Generalized anxiety disorder F41.1 and M faisalor depressive disorder, recurrent episode, moderate F33.1 [facility] [address] [address] May, [facility] [address] [address] May, [facility] [address] [address] May, Urinary frequency R35.0 and OAB (overact ruben bladder) N32.81 [facility] [address] [address] Mar, [facility] [address] [address] Mar, Generalized anxiety disorder F41.1 and Stewart fishman depressive disorder, recurrent episode, moderate F33.1 [place] [address] [address] Mar, Major depressive disorder, recurrent epi sode, moderate F33.1 ; Generalized anxiety disorder F41.1 and History of substance abuse Z87.898 [place] [address] [address] Mar, Anxiety F41.9 ; Depression F32.9 ; Gener alized anxiety disorder F41.1 and Severe episode of recurrent major depressive disorder, with psychotic features F33.3 [place] [address] [address] Mar, Major depressive disorder, recurrent, mi ld F33.0 and Anxiety F41.9 [place] [address] [address] Feb, Anxiety F41.9 ; Low back pain M54.5 and Other chronic pain G89.29 [place] [address] [address] Jan, [place] [address] [place] [id number] Jan, Major depressive disorder, recurrent epi sode, moderate F33.1 ; Generalized anxiety disorder F41.1 and History of substance abuse Z87.898 [place] [address] [address] Jan, Anxiety F41.9 ; Major depressive disorde r, recurrent, mild F33.0 ; Primary insomnia F51.01 and Acute left-sided low back pain with left-sided sciatica M54.42 [place] [address] [address] Jan, Major depressive disorder, recurrent epi sode, moderate F33.1 ; Generalized anxiety disorder F41.1 and History of substance abuse Z87.898 [place] [address] [place] [id number] Jan, Major depressive disorder, recurrent epi sode, moderate F33.1 ; Generalized anxiety disorder F41.1 and History of substance abuse Z87.898 [place] [address] [address] December, Major depressive disorder, recurrent epi sode, moderate F33.1 ; Generalized anxiety disorder F41.1 and History of substance abuse Z87.898 [place] [address] [address] December, Routine health maintenance Z00.00 ; Medu llary sponge kidney Q61.5 ; Depression F32.9 ; Major depressive disorder, recurrent, mild F33.0 and Anxiety F41.9 [place] [address] [address] December, Routine health maintenance Z00.00 ; Medu llary sponge kidney Q61.5 ; Major depressive disorder, recurrent, mild F33.0 ; Depression F32.9 ; Anxiety F41.9 and History of substance abuse Z87.898 [place] [address] [address] December, Major depressive disorder, recurrent, mi ld F33.0 ; Depression F32.9 and Anxiety F41.9 [place] [address] [address] December, Anxiety F41.9 and Depression F32.9 [place] [address] [address] Nov, Depression F32.9 and Anxiety F41.[address] [address] Nov, Anxiety F41.9 ; Major depressive disorde r, recurrent, mild F33.0 ; Depression F32.9 ; Substance abuse F19.10 and Substance addiction F19.20 [place] [address] [address] Jul, [facility] [address] [address] Jul, [facility] [address] [address] Jun, Dysuria R30.0 ; Screening for malignant neoplasm of cervix Z12.4 ; Vaginal discharge N89.8 ; Costovertebral angle pain M54.9 ; Urinary frequency R35.0 ; Suprapubic pain R10.2 ; History of hematuria Z87.448 and History of recurrent UTIs Z87.440 [place] [address] [address] Feb, Anxiety, generalized 300.02 ; Social dillon esmer 300.23 ; Major depression 296.20 ; No condition on Ris[place] II V71.09 and No condition on axis III V71.09 [place] [address] [address] Feb, Panic disorder without agoraphobia 300.0 1 ; Depressive disorder, not elsewhere classified 311 and [place] II diagnosis deferred 799.9 [place] [address] [address] Jan, Insect bite 919.4 [facility] [address] [address] 14 Nov, 2014 [facility] [address] [address] Nov, [facility] [address] [address] Jul, [facility] [address] [address] Jul, [facility] [address] [address] Oct, [facility] [address] [address] Oct, [facility] [address] [address] Oct, [facility] [address] [facility] [place] [address] Oct, [facility] [address] [facility] [place] [address] Oct, [facility] [address] [facility] [place] [address] Oct, [facility] [address] [facility] [place] [address] Oct, [facility] [address] [facility] [place] [address] Oct, [facility] [address] [facility] [place] [address] Sep, [facility] [address] [facility] [place] [address] Sep, [facility] [address] [facility] [place] [address] Aug, [facility] [address] [facility] [place] [address] Aug, [facility] [address] [facility] [place] [address] Sep, IMMUNIZATIONS No Known Immunizations SOCIAL HISTORY Never Assessed REASON FOR VISIT PLAN OF CARE VITAL SIGNS MEDICATIONS Unknown Medications RESULTS No Results PROCEDURES No Known procedures INSTRUCTIONS MEDICATIONS ADMINISTERED No Known Medications MEDICAL (GENERAL) HISTORY Type Description Date Medical History Medulary Sponge Kidneys Medical History Depression Medical History Anxiety Medical History colitis Medical History acid reflux following child Surgical History No Surgical history information Hospitalization History kidney stones 2010
--- OUTSIDE RECORDS SUMMARY | 2020-02-29 16:05 | XMS REPORT ---
Author Author Ana Laura Busch Organization [facility] Address [address] [place] [address] Care Team Providers Care Quality Technician Name Role Phone JODI Busch Unavailable PROBLEMS Type Condition ICD9-CM Code KUB10-BV Code Onset Dates Condition S tatus SNOMED Code Problem Generalized anxiety disorder F41.1 A ctive 98891564 Problem Major depressive disorder, recurrent, mild F33.0 Active 087292976 Problem Depression F32.9 Active 94514649 Problem Major depressive disorder, recurrent episode, moderate F33.1 Active 772596403 Problem Routine health maintenance Z00.00 Act ruben 318975956 Problem 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 Active 093397431 Problem Low back pain M54.5 Active 137562 009 Problem Post depression F53 Active 45572009 Problem History of substance abuse Z87.898 Act ruben 161086036 Problem Genital warts A63.0 Active 884946 007 Problem Anxiety F41.9 Active 97478483 Problem Other chronic pain G89.29 Active 8 4079388 Problem OAB (overactive bladder) N32.81 Activ e 122937067 Problem KIESHA (generalized anxiety disorder) F41.1 Active 35285012 Problem Moderate episode of recurrent major depressive disorder F33.1 Active 311913553 ALLERGIES No Information ENCOUNTERS Encounter Location Date Diagnosis [facility] [address] [facility] [place] [address] Sep, Genital warts A63.0 [facility] [address] [facility] [place] [address] Aug, Well woman exam Z01.419 ; Screening for cervical cancer Z12.4 ; Screening examination for sexually transmitted disease Z11.3 ; Genital warts A63.0 and Encounter for immunization Z23 [facility] [address] [facility] [id number] [address] [place] [address] Apr, Rash R21 [facility] [address] [place] [id number] [address] [place] [address] Jan, Epigastric abdominal pain R1 0.13 and Acute gastritis without hemorrhage, unspecified gastritis type K29.00 [facility] [address] [id number] [place] [address] December, [facility] [address] [address] December, Grade I hemorrhoids K64.0 [facility] [address] [place] [address] [id number] [address] [place] [address] December, Hemorrhoids, thrombosed K64. 5 [facility] [address] [id number] [address] [place] [address] Aug, Herpes labialis B00.1 [facility] [address] [place] [address] Aug, [facility] [address] [id number] [address] [place] [address] December, Other sites of candidiasis B 37.89 and Infection of nipple associated with the puerperium O91.02 [facility] [address] [id number] December, Dental examination Z01.20 [facility] [address] [id number] December, Encounter for dental examination Z01.20 [facility] [address] [address] Oct, [facility] [address] [address] Oct, Moderate episode of recurrent major depr essive disorder F33.1 ; Post depression F53 and KIESHA (generalized anxiety disorder) F41.1 [facility] [address] [id number] Sep, Dental examination Z01.20 [facility] [address] [id number] Jun, Dental examination Z01.20 [facility] [address] [address] Apr, Dental examination Z01.20 [facility] [address] [id number] Mar, Encounter for dental examination Z01.20 [facility] [address] [address] Mar, Screening, anemia, deficiency, iron Z13. 0 [facility] [address] [id number] Sep, Dental caries K02.9 [facility] [address] [address] Jul, Encounter for test Z32.00 [facility] [address] [address] Jun, Dental examination Z01.20 [facility] [address] [address] Jun, [place] [address] [address] Jun, Generalized anxiety disorder F41.1 and M faisalor depressive disorder, recurrent episode, moderate F33.1 [facility] [address] [address] May, [facility] [address] [address] May, [facility] [address] [address] May, Urinary frequency R35.0 and OAB (overact ruben bladder) N32.81 [facility] [address] [address] Mar, [facility] [address] [address] Mar, Generalized anxiety disorder F41.1 and Stewart fishman depressive disorder, recurrent episode, moderate F33.1 [place] [address] [address] Mar, Major depressive disorder, recurrent epi sode, moderate F33.1 ; Generalized anxiety disorder F41.1 and History of substance abuse Z87.898 [place] [address] [address] Mar, Anxiety F41.9 ; Depression F32.9 ; Gener alized anxiety disorder F41.1 and Severe episode of recurrent major depressive disorder, with psychotic features F33.3 [place] [address] [address] Mar, Major depressive disorder, recurrent, mi ld F33.0 and Anxiety F41.9 [place] [address] [address] Feb, Anxiety F41.9 ; Low back pain M54.5 and Other chronic pain G89.29 [place] [address] [address] Jan, [place] [address] [place] [id number] Jan, Major depressive disorder, recurrent epi sode, moderate F33.1 ; Generalized anxiety disorder F41.1 and History of substance abuse Z87.898 [place] [address] [address] Jan, Anxiety F41.9 ; Major depressive disorde r, recurrent, mild F33.0 ; Primary insomnia F51.01 and Acute left-sided low back pain with left-sided sciatica M54.42 [place] [address] [address] Jan, Major depressive disorder, recurrent epi sode, moderate F33.1 ; Generalized anxiety disorder F41.1 and History of substance abuse Z87.898 [place] [address] [place] [address] Jan, Major depressive disorder, recurrent epi sode, moderate F33.1 ; Generalized anxiety disorder F41.1 and History of substance abuse Z87.898 [place] [address] [address] December, Major depressive disorder, recurrent epi sode, moderate F33.1 ; Generalized anxiety disorder F41.1 and History of substance abuse Z87.898 [place] [address] [address] December, Routine health maintenance Z00.00 ; Medu llary sponge kidney Q61.5 ; Depression F32.9 ; Major depressive disorder, recurrent, mild F33.0 and Anxiety F41.9 [place] [address] [address] December, Routine health maintenance Z00.00 ; Medu llary sponge kidney Q61.5 ; Major depressive disorder, recurrent, mild F33.0 ; Depression F32.9 ; Anxiety F41.9 and History of substance abuse Z87.898 [place] [address] [address] December, Major depressive disorder, recurrent, mi ld F33.0 ; Depression F32.9 and Anxiety F41.9 [place] [address] [address] December, Anxiety F41.9 and Depression F32.9 [place] [address] [address] Nov, Depression F32.9 and Anxiety F41.[address] [address] Nov, Anxiety F41.9 ; Major depressive disorde r, recurrent, mild F33.0 ; Depression F32.9 ; Substance abuse F19.10 and Substance addiction F19.20 [place] [address] [address] Jul, [facility] [address] [address] Jul, [facility] [address] [address] Jun, Dysuria R30.0 ; Screening for malignant neoplasm of cervix Z12.4 ; Vaginal discharge N89.8 ; Costovertebral angle pain M54.9 ; Urinary frequency R35.0 ; Suprapubic pain R10.2 ; History of hematuria Z87.448 and History of recurrent UTIs Z87.440 [place] [address] [address] Feb, Anxiety, generalized 300.02 ; Social dillon esmer 300.23 ; Major depression 296.20 ; No condition on [place] II V71.09 and No condition on axis III V71.09 [place] [address] [address] Feb, Panic disorder without agoraphobia 300.0 1 ; Depressive disorder, not elsewhere classified 311 and [place] II diagnosis deferred 799.9 [place] [address] [address] Jan, Insect bite 919.4 [facility] [address] [address] 14 Nov, 2014 [facility] [address] [address] Nov, [facility] [address] [address] Jul, [facility] [address] [address] Jul, [facility] [address] [address] Oct, [facility] [address] [address] Oct, [facility] [address] [address] Oct, [facility] [address] [facility] [place] [address] Oct, [facility] [address] [facility] [place] [address] Oct, [facility] [address] [facility] [place] [address] Oct, [facility] [address] [facility] [place] [address] Oct, [facility] [address] [facility] [place] [address] Oct, [facility] [address] [facility] [place] [address] Sep, [facility] [address] [facility] [place] [address] Sep, [facility] [address] [facility] [place] [address] Aug, [facility] [address] [facility] [place] [address] Aug, [facility] [address] [facility] [place] [address] Sep, IMMUNIZATIONS No Known Immunizations SOCIAL HISTORY [...]
--- OUTSIDE RECORDS SUMMARY | 2020-02-29 16:05 | XMS REPORT ---
Author Author Madhuri WEINERy NORM Organization [facility] Address [address] [place] [address] Care Team Providers Care Theoretical Physicist Name Role Phone REGINEROCHELLE PERKINSHANY Unavailable PROBLEMS Type Condition ICD9-CM Code JEL73-CA Code Onset Dates Condition S tatus SNOMED Code Problem Generalized anxiety disorder F41.1 A ctive 02863429 Problem Major depressive disorder, recurrent, mild F33.0 Active 642640359 Problem Depression F32.9 Active 20722991 Problem Major depressive disorder, recurrent episode, moderate F33.1 Active 252607537 Problem Routine health maintenance Z00.00 Act ruben 209826288 Problem 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 Active 070493463 Problem Low back pain M54.5 Active 546617 009 Problem Post depression F53 Active 91393974 Problem History of substance abuse Z87.898 Act ruben 485534627 Problem Genital warts A63.0 Active 996448 007 Problem Anxiety F41.9 Active 30779306 Problem Other chronic pain G89.29 Active 8 6313097 Problem OAB (overactive bladder) N32.81 Activ e 214148545 Problem KIESHA (generalized anxiety disorder) F41.1 Active 02493531 Problem Moderate episode of recurrent major depressive disorder F33.1 Active 942408337 ALLERGIES No Information ENCOUNTERS Encounter Location Date Diagnosis [facility] [address] [facility] [id number] [address] [place] [address] Oct, Vaginal discharge N89.8 and Vaginal yeast infection B37.3 [facility] [address] [id number] [place] [address] Sep, Genital warts A63.0 [facility] [address] [facility] [place] [address] Aug, Well woman exam Z01.419 ; Screening for cervical cancer Z12.4 ; Screening examination for sexually transmitted disease Z11.3 ; Genital warts A63.0 and Encounter for immunization Z23 [facility] [address] [address] Apr, Rash R21 [facility] [place] [address] [address] Jan, Epigastric abdominal pain R1 0.13 and Acute gastritis without hemorrhage, unspecified gastritis type K29.00 [facility] [address] [address] December, [place] [address] [address] December, Grade I hemorrhoids K64.0 [facility] [address] [address] December, Hemorrhoids, thrombosed K64. 5 [facility] [place] [address] [address] Aug, Herpes labialis B00.1 [facility] [address] [facility] [address] Aug, [facility] [address] [address] December, Other sites of candidiasis B 37.89 and Infection of nipple associated with the puerperium O91.02 [facility] [address] [id number] December, Dental examination Z01.20 [facility] [address] [id number] December, Encounter for dental examination Z01.20 [facility] [address] [address] Oct, [place] [address] [address] Oct, Moderate episode of recurrent major depr essive disorder F33.1 ; Post depression F53 and KIESHA (generalized anxiety disorder) F41.1 [facility] [address] [id number] Sep, 2017 Dental examination Z01.20 [facility] [address] [id number] Jun, Dental examination Z01.20 [facility] [address] [address] Apr, Dental examination Z01.20 [facility] [address] [id number] Mar, Encounter for dental examination Z01.20 [facility] [address] [address] Mar, Screening, anemia, deficiency, iron Z13. 0 [facility] [address] [id number] Sep, Dental caries K02.9 [facility] [address] [address] Jul, Encounter for test Z32.00 [facility] [address] [address] Jun, Dental examination Z01.20 [facility] [address] [address] Jun, [facility] [address] [address] Jun, Generalized anxiety disorder F41.1 and Stewart fishman depressive disorder, recurrent episode, moderate F33.1 [facility] [address] [address] May, [facility] [address] [address] May, [facility] [address] [address] May, Urinary frequency R35.0 and OAB (overact ruben bladder) N32.81 [place] [address] [address] Mar, [place] [address] [address] Mar, Generalized anxiety disorder F41.1 and Stewart fishman depressive disorder, recurrent episode, moderate F33.1 [place] [address] [address] Mar, Major depressive disorder, recurrent epi sode, moderate F33.1 ; Generalized anxiety disorder F41.1 and History of substance abuse Z87.898 [place] [address] [address] Mar, Anxiety F41.9 ; Depression F32.9 ; Gener alized anxiety disorder F41.1 and Severe episode of recurrent major depressive disorder, with psychotic features F33.[address] [address] Mar, Major depressive disorder, recurrent, mi ld F33.0 and Anxiety F41.9 [place] [address] [address] Feb, Anxiety F41.9 ; Low back pain M54.5 and Other chronic pain G89.29 [place] [address] [address] Jan, [place] [address] [address] Jan, Major depressive disorder, recurrent epi sode, moderate F33.1 ; Generalized anxiety disorder F41.1 and History of substance abuse Z87.898 [place] [address] [address] Jan, Anxiety F41.9 ; Major depressive disorde r, recurrent, mild F33.0 ; Primary insomnia F51.01 and Acute left-sided low back pain with left-sided sciatica M54.42 [place] [address] [address] Jan, Major depressive disorder, recurrent epi sode, moderate F33.1 ; Generalized anxiety disorder F41.1 and History of substance abuse Z87.898 [place] [address] [address] Jan, Major depressive disorder, recurrent epi sode, moderate F33.1 ; Generalized anxiety disorder F41.1 and History of substance abuse Z87.898 [place] [address] [address] December, Major depressive disorder, recurrent epi sode, moderate F33.1 ; Generalized anxiety disorder F41.1 and History of substance abuse Z87.898 [place] [address] [address] December, Routine health maintenance Z00.00 ; Medu llary sponge kidney Q61.5 ; Depression F32.9 ; Major depressive disorder, recurrent, mild F33.0 and Anxiety F41.9 [place] [address] [address] December, Routine health maintenance Z00.00 ; Medu llary sponge kidney Q61.5 ; Major depressive disorder, recurrent, mild F33.0 ; Depression F32.9 ; Anxiety F41.9 and History of substance abuse Z87.898 [place] [address] [address] December, Major depressive disorder, recurrent, mi ld F33.0 ; Depression F32.9 and Anxiety F41.9 [place] [address] [address] December, Anxiety F41.9 and Depression F32.[address] [address] Nov, Depression F32.9 and Anxiety F41.9 [place] [address] [address] Nov, Anxiety F41.9 ; Major depressive disorde r, recurrent, mild F33.0 ; Depression F32.9 ; Substance abuse F19.10 and Substance addiction F19.20 [facility] [address] [address] Jul, [facility] [address] [address] Jul, [facility] [address] [address] Jun, Dysuria R30.0 ; Screening for malignant neoplasm of cervix Z12.4 ; Vaginal discharge N89.8 ; Costovertebral angle pain M54.9 ; Urinary frequency R35.0 ; Suprapubic pain R10.2 ; History of hematuria Z87.448 and History of recurrent UTIs Z87.440 [place] [address] [address] Feb, Anxiety, generalized 300.02 ; Social dillon esmer 300.23 ; Major depression 296.20 ; No condition on Rich[place] II V71.09 and No condition on axis III V71.09 [place] [address] [address] 07 Feb, 2015 Panic disorder without agoraphobia 300.0 1 ; Depressive disorder, not elsewhere classified 311 and [place] II diagnosis deferred 799.9 [place] [address] [address] Jan, Insect bite 919.4 [place] [address] [address] 14 Nov, 2014 [facility] [address] [address] Nov, [place] [address] [address] Jul, [facility] [address] [address] Jul, [place] [address] [address] Oct, [place] [address] [facility] [place] [address] 18 Oct, 2013 [facility] [address] [facility] [place] [address] Oct, [facility] [address] [facility] [place] [address] Oct, [facility] [address] [facility] [place] [address] Oct, [facility] [address] [place] [id number] [place] [address] Oct, [facility] [address] [place] [id number] [place] [address] Oct, [facility] [address] [place] [id number] [place] [address] Oct, [facility] [address] [place] [id number] [place] [address] Sep, [facility] [address] [place] [id number] [place] [address] Sep, [facility] [address] [place] [id number] [place] [address] Aug, [facility] [address] [place] [id number] [place] [address] Aug, [facility] [address] [facility] [place] [address] Sep, IMMUNIZATIONS No Known Immunizations SOCIAL HISTORY Never Assessed REASON FOR VISIT PLAN OF CARE VITAL SIGNS Height 67 in 2013-08-31 Weight 130 lbs 2013-08-31 Temperature 98.4 degrees Fahrenheit 2013-08-31 Heart Rate 72 bpm 2013-08-31 Respiratory Rate 16 2013-08-31 Blood pressure systolic 96 mmHg 2013-08-31 Blood pressure diastolic 60 mmHg 2013-08-31 MEDICATIONS No Known Medications RESULTS No Results PROCEDURES No Known procedures INSTRUCTIONS MEDICATIONS ADMINISTERED No Known Medications MEDICAL (GENERAL) HISTORY Type Description Date Medical History Medulary Sponge Kidneys Medical History Depression Medical History Anxiety Medical History colitis Medical History acid reflux following child Surgical History No Surgical history information Hospitalization History kidney stones 2010
--- OUTSIDE RECORDS SUMMARY | 2020-02-29 16:05 | XMS REPORT ---
Author Author Ana Laura FRANCO Organization [facility] Address [address] [place] [address] Care Team Providers Care Eyeglass Lens Generator Name Role Phone ADRIÁN FRANCO Unavailable PROBLEMS Type Condition ICD9-CM Code [id number] Code Onset Dates Condition S tatus SNOMED Code Problem Generalized anxiety disorder F41.1 A ctive 78115053 Problem Major depressive disorder, recurrent, mild F33.0 Active 119570735 Problem Depression F32.9 Active 74020987 Problem Major depressive disorder, recurrent episode, moderate F33.1 Active 358756004 Problem Routine health maintenance Z00.00 Act ruben 929976171 Problem 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 Active 224000397 Problem Low back pain M54.5 Active 235175 009 Problem Post depression F53 Active 96219221 Problem History of substance abuse Z87.898 Act ruben 450895321 Problem Genital warts A63.0 Active 890698 007 Problem Anxiety F41.9 Active 85674606 Problem Other chronic pain G89.29 Active 8 7530443 Problem OAB (overactive bladder) N32.81 Activ e 689740182 Problem KIESHA (generalized anxiety disorder) F41.1 Active 57773602 Problem Moderate episode of recurrent major depressive disorder F33.1 Active 008656817 ALLERGIES No Information ENCOUNTERS Encounter Location Date Diagnosis [facility] [address] [facility] [place] [address] Sep, Genital warts A63.0 [facility] [address] [place] [id number] [place] [address] Aug, Well woman exam Z01.419 ; Screening for cervical cancer Z12.4 ; Screening examination for sexually transmitted disease Z11.3 ; Genital warts A63.0 and Encounter for immunization Z23 [facility] [address] [facility] [id number] [address] [place] [address] Apr, Rash R21 [facility] [address] [place] [id number] [place] [address] Jan, Epigastric abdominal pain R1 0.13 and Acute gastritis without hemorrhage, unspecified gastritis type K29.00 [facility] [address] [place] [id number] [place] [address] December, [facility] [address] [address] December, Grade I hemorrhoids K64.0 [facility] [address] [place] [address] December, Hemorrhoids, thrombosed K64. 5 [facility] [address] [place] [id number] [address] [place] [address] Aug, Herpes labialis B00.1 [facility] [address] [facility] [address] Aug, [facility] [address] [place] [address] December, Other sites of candidiasis B 37.89 and Infection of nipple associated with the puerperium O91.02 [facility] [address] [id number] December, Dental examination Z01.20 [facility] [address] [id number] December, Encounter for dental examination Z01.20 [facility] [address] [address] Oct, [facility] [address] [address] Oct, Moderate episode of recurrent major depr essive disorder F33.1 ; Post depression F53 and KIESHA (generalized anxiety disorder) F41.1 [facility] [address] [id number] Sep, Dental examination Z01.20 [facility] [address] [id number] Jun, Dental examination Z01.20 [facility] [address] [address] Apr, Dental examination Z01.20 [facility] [address] [id number] Mar, Encounter for dental examination Z01.20 [facility] [address] [address] Mar, Screening, anemia, deficiency, iron Z13. 0 [facility] [address] [id number] Sep, Dental caries K02.9 [place] [address] [address] Jul, Encounter for test Z32.00 [place] [address] [address] Jun, Dental examination Z01.20 [facility] [address] [address] Jun, [place] [address] [address] Jun, Generalized anxiety disorder F41.1 and M ajor depressive disorder, recurrent episode, moderate F33.1 [place] [address] [address] May, [facility] [address] [address] May, [facility] [address] [address] May, Urinary frequency R35.0 and OAB (overact ruben bladder) N32.81 [facility] [address] [address] Mar, [facility] [address] [address] Mar, Generalized anxiety disorder F41.1 and Stewart fishman depressive disorder, recurrent episode, moderate F33.1 [place] [address] [place] [id number] Mar, Major depressive disorder, recurrent epi sode, moderate F33.1 ; Generalized anxiety disorder F41.1 and History of substance abuse Z87.898 [place] [address] [address] Mar, Anxiety F41.9 ; Depression F32.9 ; Gener alized anxiety disorder F41.1 and Severe episode of recurrent major depressive disorder, with psychotic features F33.3 [place] [address] [address] Mar, Major depressive disorder, recurrent, mi ld F33.0 and Anxiety F41.9 [place] [address] [address] Feb, Anxiety F41.9 ; Low back pain M54.5 and Other chronic pain G89.29 [place] [address] [address] Jan, [place] [address] [place] [address] Jan, Major depressive disorder, recurrent epi sode, moderate F33.1 ; Generalized anxiety disorder F41.1 and History of substance abuse Z87.898 [place] [address] [address] Jan, Anxiety F41.9 ; Major depressive disorde r, recurrent, mild F33.0 ; Primary insomnia F51.01 and Acute left-sided low back pain with left-sided sciatica M54.42 [place] [address] [place] [id number] Jan, Major depressive disorder, recurrent epi sode, moderate F33.1 ; Generalized anxiety disorder F41.1 and History of substance abuse Z87.898 [place] [address] [address] Jan, Major depressive disorder, recurrent epi sode, moderate F33.1 ; Generalized anxiety disorder F41.1 and History of substance abuse Z87.898 [place] [address] [address] December, Major depressive disorder, recurrent epi sode, moderate F33.1 ; Generalized anxiety disorder F41.1 and History of substance abuse Z87.898 [place] [address] [address] December, Routine health maintenance Z00.00 ; Medu llary sponge kidney Q61.5 ; Depression F32.9 ; Major depressive disorder, recurrent, mild F33.0 and Anxiety F41.9 [place] [address] [address] December, Routine health maintenance Z00.00 ; Medu llary sponge kidney Q61.5 ; Major depressive disorder, recurrent, mild F33.0 ; Depression F32.9 ; Anxiety F41.9 and History of substance abuse Z87.898 [place] [address] [address] December, Major depressive disorder, recurrent, mi ld F33.0 ; Depression F32.9 and Anxiety F41.9 [place] [address] [address] December, Anxiety F41.9 and Depression F32.9 [place] [address] [address] Nov, Depression F32.9 and Anxiety F41.[address] [address] Nov, Anxiety F41.9 ; Major depressive disorde r, recurrent, mild F33.0 ; Depression F32.9 ; Substance abuse F19.10 and Substance addiction F19.20 [place] [address] [address] Jul, [facility] [address] [address] Jul, [facility] [address] [address] 30 Jun, 2015 Dysuria R30.0 ; Screening for malignant neoplasm of cervix Z12.4 ; Vaginal discharge N89.8 ; Costovertebral angle pain M54.9 ; Urinary frequency R35.0 ; Suprapubic pain R10.2 ; History of hematuria Z87.448 and History of recurrent UTIs Z87.440 [facility] [address] [address] Feb, Anxiety, generalized 300.02 ; Social dillon esmer 300.23 ; Major depression 296.20 ; No condition on [place] II V71.09 and No condition on axis III V71.09 [place] [address] [address] 07 Feb, 2015 Panic disorder without agoraphobia 300.0 1 ; Depressive disorder, not elsewhere classified 311 and [place] II diagnosis deferred 799.9 [facility] [address] [address] Jan, Insect bite 919.4 [facility] [address] [address] 14 Nov, 2014 [facility] [address] [address] Nov, [facility] [address] [address] Jul, [facility] [address] [address] Jul, [facility] [address] [address] 18 Oct, 2013 [facility] [address] [address] 18 Oct, 2013 [facility] [address] [address] Oct, [facility] [address] [facility] [place] [address] Oct, [facility] [address] [facility] [place] [address] Oct, [facility] [address] [facility] [place] [address] Oct, [facility] [address] [place] [id number] [place] [address] Oct, [facility] [address] [facility] [place] [address] Oct, [facility] [address] [place] [id number] [place] [address] Sep, [facility] [address] [facility] [place] [address] Sep, [facility] [address] [place] [id number] [place] [address] Aug, [facility] [address] [id number] [place] [address] Aug, [facility] [address] [place] [id number] [place] [address] Sep, IMMUNIZATIONS No Known Immunizations SOCIAL HISTORY [...]
--- OUTSIDE RECORDS SUMMARY | 2020-02-29 16:06 | XMS REPORT ---
Author Author Ana Laura GREWAL Organization [facility] Address [address] [place] [address] Care Team Providers Care Finish Inspector Name Role Phone CR GREWAL Unavailable PROBLEMS Type Condition ICD9-CM Code [id number] Code Onset Dates Condition S tatus SNOMED Code Problem History of substance abuse Z87.898 Act ruben 189610377 Problem 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 Active 113266606 Problem Routine health maintenance Z00.00 Act ruben 228947365 Problem KIESHA (generalized anxiety disorder) F41.1 Active 11561177 Problem Post depression F53 Active 23647563 Problem Other chronic pain G89.29 Active 8 4559925 Problem Low back pain M54.5 Active 913853 009 Problem Moderate episode of recurrent major depressive disorder F33.1 Active 643564292 Problem OAB (overactive bladder) N32.81 Activ e 326623694 Problem Generalized anxiety disorder F41.1 A ctive 58103351 Problem Major depressive disorder, recurrent episode, moderate F33.1 Active 808289960 Problem Depression F32.9 Active 55345282 Problem Major depressive disorder, recurrent, mild F33.0 Active 049328653 Problem Anxiety F41.9 Active 52266424 ALLERGIES Substance Reaction Event Type Date Status Wellbutrin Hallucinations Drug Allergy December, Active ENCOUNTERS Encounter Location Date Diagnosis [facility] [address] [facility] [id number] [address] [address] December, Other sites of candidiasis B 37.89 and Infection of nipple associated with the puerperium O91.02 [facility] [address] [facility] [id number] [address] [place] [address] [id number] December, Dental examination Z01.20 [facility] [address] [facility] [id number] [address] [place] [address] [id number] December, Encounter for dental examina tion Z01.20 [facility] [address] [facility] [id number] [address] [place] [phone] Oct, [facility] [address] [facility] [id number] [address] [place] [phone] Oct, Moderate episode of recurren t major depressive disorder F33.1 ; Post depression F53 and KIESHA (generalized anxiety disorder) F41.1 [facility] [id number] [place] [address] [id number] Sep, Dental examination Z01.20 [facility] [address] [facility] [id number] [id number] Jun, Dental examination Z01.20 [facility] [address] [facility] [id number] [place] [address] Apr, Dental examination Z01.20 [facility] [address] [id number] Mar, Encounter for dental examina tion Z01.20 [facility] [address] [facility] [id number] [address] [place] [phone] Mar, Screening, anemia, deficienc y, iron Z13.0 [facility] [address] [id number] [address] [place] [address] [id number] Sep, Dental caries K02.9 [facility] [address] [place] [id number] [address] [place] [phone] Jul, Encounter for test Z32.00 [facility] [address] [facility] [id number] [address] [place] [phone] Jun, Dental examination Z01.20 [facility] [address] [facility] [id number] [address] [place] [phone] Jun, [facility] [address] [facility] [id number] [address] [place] [phone] Jun, Generalized anxiety disorder F41.1 and Major depressive disorder, recurrent episode, moderate F33.1 [place] [address] [facility] [id number] [address] [place] [phone] May, [place] [address] [facility] [id number] [address] [place] [phone] May, [place] [address] [facility] [id number] [address] [place] [phone] May, Urinary frequency R35.0 and OAB (overactive bladder) N32.81 [place] [address] [facility] [id number] [address] [place] [phone] Mar, [place] [address] [facility] [id number] [address] [place] [phone] Mar, Generalized anxiety disorder F41.1 and Major depressive disorder, recurrent episode, moderate F33.1 [place] [address] [place] [id number] [place] [phone] Mar, Major depressive disorder, r ecurrent episode, moderate F33.1 ; Generalized anxiety disorder F41.1 and History of substance abuse Z87.898 [place] [address] [place] [id number] [address] [place] [phone] Mar, Anxiety F41.9 ; Depression F 32.9 ; Generalized anxiety disorder F41.1 and Severe episode of recurrent major depressive disorder, with psychotic features F33.3 [place] [address] [place] [id number] [address] [place] [phone] Mar, Major depressive disorder, r ecurrent, mild F33.0 and Anxiety F41.9 [place] [address] [facility] [id number] [address] [place] [phone] Feb, Anxiety F41.9 ; Low back claudine n M54.5 and Other chronic pain G89.29 [place] [address] [facility] [id number] [address] [place] [phone] Jan, [place] [address] [place] [id number] [address] [place] [phone] Jan, Major depressive disorder, r ecurrent episode, moderate F33.1 ; Generalized anxiety disorder F41.1 and History of substance abuse Z87.898 [place] [address] [place] [id number] Jan, Anxiety F41.9 ; Major depres sive disorder, recurrent, mild F33.0 ; Primary insomnia F51.01 and Acute left-sided low back pain with left-sided sciatica M54.42 [place] [address] [phone] Jan, Major depressive disorder, r ecurrent episode, moderate F33.1 ; Generalized anxiety disorder F41.1 and History of substance abuse Z87.898 [place] [address] [address] Jan, Major depressive disorder, r ecurrent episode, moderate F33.1 ; Generalized anxiety disorder F41.1 and History of substance abuse Z87.898 [place] [address] [address] December, Major depressive disorder, r ecurrent episode, moderate F33.1 ; Generalized anxiety disorder F41.1 and History of substance abuse Z87.898 [place] [address] [place] [id number] [address] [place] [address] December, Routine health maintenance Z 00.00 ; 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 ; Depression F32.9 ; Major depressive disorder, recurrent, mild F33.0 and Anxiety F41.9 [place] [address] [place] [id number] [address] [place] [address] December, Routine health maintenance Z 00.00 ; 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 ; Major depressive disorder, recurrent, mild F33.0 ; Depression F32.9 ; Anxiety F41.9 and History of substance abuse Z87.898 [place] [address] [place] [id number] [address] [place] [phone] December, Major depressive disorder, r ecurrent, mild F33.0 ; Depression F32.9 and Anxiety F41.9 [place] [address] [address] December, Anxiety F41.9 and Depression F32.9 [place] [address] [address] Nov, Depression F32.9 and Anxiety F41.9 [place] [address] [address] Nov, Anxiety F41.9 ; Major depres sive disorder, recurrent, mild F33.0 ; Depression F32.9 ; Substance abuse F19.10 and Substance addiction F19.[address] [phone] Jul, [address] [address] Jul, [address] [address] Jun, Dysuria R30.0 ; Screening fo r malignant neoplasm of cervix Z12.4 ; Vaginal discharge N89.8 ; Costovertebral angle pain M54.9 ; Urinary frequency R35.0 ; Suprapubic pain R10.2 ; History of hematuria Z87.448 and History of recurrent UTIs Z87.[address] [address] Feb, Anxiety, generalized 300.02 ; Social phobia 300.23 ; Major depression 296.20 ; No condition on [place] II V71.09 and No condition on axis III V71.[address] [address] Feb, Panic disorder without agora phobia 300.01 ; Depressive disorder, not elsewhere classified 311 and [place] II diagnosis deferred 799.[address] [id number] 19 Rashaad, 2015 Insect bite 919.4 [facility] [address] [id number] [address] [place] [address], [place] [phone] 14 Nov, 2014 [facility] [address] [id number] [address] [place] [address], [place] [address] Nov, [facility] [address] [id number] [address] [place] [address], [place] [address] Jul, [facility] [address] [id number] [address] [place] [address], [place] [address] Jul, [facility] [address] [id number] [address] [place] [address], [place] [address] Oct, [facility] [address] [id number] [address] [place] [address], [place] [phone] 18 Oct, 2013 [facility] [address] [id number] [address] [place] [address], [place] [address] Oct, [facility] [address] [id number] [address] [place] [address], [place] [address] Oct, [facility] [address] [id number] [address] [place] [address], [place] [address] Oct, [facility] [address] [id number] [address] [place] [phone] Oct, [facility] [address] [id number] [address] [place] [address], [place] [address] Oct, [facility] [address] [id number] [address] [place] [phone] Oct, [facility] [address] [id number] [address] [place] [address], [place] [address] Sep, [facility] [address] [id number] [address] [place] [address], [place] [address] Sep, [facility] [address] [id number] [address] [place] [address], [place] [address] Aug, [facility] [address] [id number] [address] [place] [phone] Aug, [facility] [address] [facility] [id number] [address] [place] [phone] Sep, IMMUNIZATIONS No Known Immunizations SOCIAL HISTORY Never Assessed REASON FOR VISIT 3 MO RECALL PLAN OF CARE Activity Details Follow Up First [facility] Reason:Ruthann rative VITAL SIGNS Height 67 in 2017-12-02 Blood pressure systolic 106 mmHg 2017-12-02 Blood pressure diastolic 72 mmHg 2017-12-02 MEDICATIONS Medication Instructions Dosage Frequency Start Date End Date Duration S tatus BusPIRone HCl 10 MG Orally Three times a day 1 tablet 8h Not-Taking Colace Not-Taking Pepcid Not-Taking Diflucan 150 MG Orally Once a day 1 tablet 24h Jul, 1 dose Not-Taking Pre- Active Acetaminophen Active Escitalopram Oxalate 20 mg Orally Once a day 1 tablet 24h 08 2015 30 day(s) Not-Taking Anusol-HC 2.5 % Rectal 3 times a day 1 application to affected area 8h May, Not-Taking Iron Not-Taking Ortho Tri-Cyclen (28) 0.18/0.215/0.25 mg-35 mcg (28) take 1 tablet by oral route once daily Sep, Not-Taking AZO Cranberry 250-30 MG Not-Taking RESULTS No Results PROCEDURES Procedure Date Ordered Result Body Site Periodontal maint procedures December 02, 2017 Billing Notes on claim December 02, 2017 INSTRUCTIONS MEDICATIONS ADMINISTERED No Known Medications MEDICAL (GENERAL) HISTORY Type Description Date Medical History Medulary Sponge Kidneys Medical History Depression Medical History Anxiety Medical History colitis Hospitalization History kidney stones 2010
--- OUTSIDE RECORDS SUMMARY | 2020-02-29 16:06 | XMS REPORT ---
Author Author Ana Laura POTTS Organization [facility] Address [address] [place] [address] Care Team Providers Care Director Print Name Role Phone TEJ POTTS Unavailable PROBLEMS Type Condition ICD9-CM Code XYM93-FJ Code Onset Dates Condition S tatus SNOMED Code Problem History of substance abuse Z87.898 Act ruben 309098833 Problem 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 Active 782903350 Problem Routine health maintenance Z00.00 Act ruben 004793433 Problem KIESHA (generalized anxiety disorder) F41.1 Active 80384136 Problem Post depression F53 Active 55872438 Problem Other chronic pain G89.29 Active 8 3104036 Problem Low back pain M54.5 Active 985105 009 Problem Moderate episode of recurrent major depressive disorder F33.1 Active 913604868 Problem OAB (overactive bladder) N32.81 Activ e 373126212 Problem Generalized anxiety disorder F41.1 A ctive 26208986 Problem Major depressive disorder, recurrent episode, moderate F33.1 Active 611405198 Problem Depression F32.9 Active 89888014 Problem Major depressive disorder, recurrent, mild F33.0 Active 631784860 Problem Anxiety F41.9 Active 19613697 ALLERGIES Substance Reaction Event Type Date Status Wellbutrin Hallucinations Drug Allergy December, Active ENCOUNTERS Encounter Location Date Diagnosis [facility] [address] [facility] [place] [place] [id number] [address] [address] December, Other sites of candidiasis B 37.89 and Infection of nipple associated with the puerperium O91.02 [facility] [address] [facility] [id number] [address] [place] [address] [id number] December, Dental examination Z01.20 [facility] [address] [facility] [id number] [address] [place] [address] [id number] December, Encounter for dental examina tion Z01.20 [facility] [address] [facility] [place] [id number] [address] [place] [address] Oct, [facility] [address] [facility] [place] [id number] [address] [place] [address] Oct, Moderate episode of recurren t major depressive disorder F33.1 ; Post depression F53 and KIESHA (generalized anxiety disorder) F41.1 [facility] [address] [id number] [place] [address] [id number] Sep, Dental examination Z01.20 [facility] [address] [id number] [address] [id number] Jun, Dental examination Z01.20 [facility] [address] [facility] [place] [id number] [place] [address] Apr, Dental examination Z01.20 [facility] [address] [id number] Mar, Encounter for dental examina tion Z01.20 [facility] [address] [id number] [address] [place] [address] Mar, Screening, anemia, deficienc y, iron Z13.0 [facility] [address] [id number] [address] [place] [address] [id number] Sep, Dental caries K02.9 [facility] [address] [facility] [place] [id number] [address] [place] [address] Jul, Encounter for test Z32.00 [facility] [address] [facility] [place] [id number] [address] [place] [address] Jun, Dental examination Z01.20 [facility] [address] [facility] [place] [id number] [address] [place] [address] Jun, [facility] [address] [facility] [place] [id number] [address] [place] [phone] Jun, Generalized anxiety disorder F41.1 and Major depressive disorder, recurrent episode, moderate F33.1 [place] [id number] [facility] [place] [id number] [address] [place] [phone] May, [facility] [address] [facility] [place] [id number] [address] [place] [address] May, [facility] [address] [facility] [place] [id number] [address] [place] [address] May, Urinary frequency R35.0 and OAB (overactive bladder) N32.81 [place] [address] [facility] [place] [id number] [address] [place] [phone] Mar, [place] [address] [facility] [place] [id number] [address] [place] [phone] Mar, Generalized anxiety disorder F41.1 and Major depressive disorder, recurrent episode, moderate F33.1 [place] [address] [place] [id number] [address] [place] [phone] Mar, Major depressive disorder, r ecurrent episode, moderate F33.1 ; Generalized anxiety disorder F41.1 and History of substance abuse Z87.898 [place] [address] [place] [id number] [place] [address] Mar, Anxiety F41.9 ; Depression F 32.9 ; Generalized anxiety disorder F41.1 and Severe episode of recurrent major depressive disorder, with psychotic features F33.3 [place] [address] [place] [id number] [address] [place] [address] Mar, Major depressive disorder, r ecurrent, mild F33.0 and Anxiety F41.9 [place] [address] [facility] [place] [id number] [address] [place] [address] Feb, Anxiety F41.9 ; Low back claudine n M54.5 and Other chronic pain G89.29 [place] [address] [facility] [place] [id number] [address] [place] [address] Jan, [place] [address] [place] [id number] [place] [address] Jan, Major depressive disorder, r ecurrent episode, moderate F33.1 ; Generalized anxiety disorder F41.1 and History of substance abuse Z87.898 [place] [address] [place] [id number] [address] [place] [address] Jan, Anxiety F41.9 ; Major depres sive disorder, recurrent, mild F33.0 ; Primary insomnia F51.01 and Acute left-sided low back pain with left-sided sciatica M54.42 [place] [address] [facility] [place] [id number] [address] [place] [address] Jan, Major depressive disorder, r ecurrent episode, moderate F33.1 ; Generalized anxiety disorder F41.1 and History of substance abuse Z87.8 [place] [address] [address] Jan, Major depressive disorder, r ecurrent episode, moderate F33.1 ; Generalized anxiety disorder F41.1 and History of substance abuse Z87.898 [place] [address] [place] [id number] [address] [place] [address] December, Major depressive disorder, r ecurrent episode, moderate F33.1 ; Generalized anxiety disorder F41.1 and History of substance abuse Z87.898 [place] [address] [place] [id number] [address] [place] [address] December, Routine health maintenance Z 00.00 ; 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 ; Depression F32.9 ; Major depressive disorder, recurrent, mild F33.0 and Anxiety F41.9 [place] [address] [facility] [place] [id number] [address] [place] [address] December, Routine health maintenance Z 00.00 ; 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 ; Major depressive disorder, recurrent, mild F33.0 ; Depression F32.9 ; Anxiety F41.9 and History of substance abuse Z87.[address] [place] [address] [address] [facility] [place] [id number] [address] [place] [address] December, Major depressive disorder, r ecurrent, mild F33.0 ; Depression F32.9 and Anxiety F41.[address] [address] December, Anxiety F41.9 and Depression F32.9 [place] [address] [address] Nov, Depression F32.9 and Anxiety F41.[address] [address] Nov, Anxiety F41.9 ; Major depres sive disorder, recurrent, mild F33.0 ; Depression F32.9 ; Substance abuse F19.10 and Substance addiction F19.[address] [address] Jul, [address] [address] Jul, [address] [address] Jun, Dysuria R30.0 ; Screening fo r malignant neoplasm of cervix Z12.4 ; Vaginal discharge N89.8 ; Costovertebral angle pain M54.9 ; Urinary frequency R35.0 ; Suprapubic pain R10.2 ; History of hematuria Z87.448 and History of recurrent UTIs Z87.[address] [address] Feb, Anxiety, generalized 300.02 ; Social phobia 300.23 ; Major depression 296.20 ; No condition on [place] II V71.09 and No condition on axis III V71.[address] [address] Feb, Panic disorder without agora phobia 300.01 ; Depressive disorder, not elsewhere classified 311 and [place] II diagnosis deferred 799.[address] [address] Jan, Insect bite 919.4 [facility] [address] [id number] [address] [place] [address], [place] [address] Nov, [facility] [address] [id number] [address] [place] [address], [place] [address] Nov, [facility] [address] [id number] [address] [place] [address], [place] [address] Jul, [facility] [address] [id number] [address] [place] [address], [place] [address] Jul, [facility] [address] [id number] [address] [place] [address], [place] [address] Oct, [facility] [address] [id number] [address] [place] [address], [place] [address] Oct, [facility] [address] [id number] [address] [place] [address], [place] [address] Oct, [facility] [address] [id number] [address] [place] [address], [place] [address] Oct, [facility] [address] [id number] [address] [place] [address], [place] [address] Oct, [facility] [address] [id number] [address] [place] [address], [place] [address] Oct, [facility] [address] [id number] [address] [place] [address], [place] [address] Oct, [facility] [address] [id number] [address] [place] [address], [place] [address] Oct, [facility] [address] [id number] [address] [place] [address], [place] [address] Sep, [facility] [address] [id number] [address] [place] [address], [place] [address] Sep, [facility] [address] [id number] [address] [place] [address], [place] [address] Aug, [facility] [address] [facility] [place] [id number] [address] [address] Aug, [facility] [address] [facility] [place] [id number] [address] [address] Sep, IMMUNIZATIONS No Known Immunizations SOCIAL HISTORY Never Assessed REASON FOR VISIT thrush Pt c/o thrush, states her son was on antibiotics for ear infections and got thrush in mouth and she is breast feeding and ended up with thrush on nipple s SHIRA Crowe PLAN OF CARE Activity Details Follow Up prn Reason: VITAL SIGNS Height 67 in 2017-12-08 Weight 174.6 lbs 2017-12-08 Temperature 98.5 degrees Fahrenheit 2017-12-08 Heart Rate 76 bpm 2017-12-08 Respiratory Rate 18 2017-12-08 BMI 27.34 kg/m2 2017-12-08 Blood pressure systolic 118 mmHg 2017-12-08 Blood pressure diastolic 70 mmHg 2017-12-08 MEDICATIONS Medication Instructions Dosage Frequency Start Date End Date Duration S tatus BusPIRone HCl 10 MG Orally Three times a day 1 tablet 8h Not-Taking Iron Not-Taking Pepcid Not-Taking Pre-Aracelis Active Escitalopram Oxalate 20 mg Orally Once a day 1 tablet 24h 08 2015 30 day(s) Not-Taking Acetaminophen Active Ortho Tri-Cyclen () 0.18/0.215/0.25 mg-35 mcg () take 1 tablet by oral route once daily Sep, Not-Taking Diflucan 150 MG Orally Once a day 1 tablet 24h Jul, 1 dose Not-Taking AZO Cranberry 250-30 MG Not-Taking Colace Not-Taking Diflucan 200 MG Orally every 72 hours 1 tablet 3 days Active Anusol-HC 2.5 % Rectal 3 times a day 1 application to affected area 8h May, Not-Taking RESULTS No Results PROCEDURES No Known procedures INSTRUCTIONS MEDICATIONS ADMINISTERED No Known Medications MEDICAL (GENERAL) HISTORY Type Description Date Medical History Medulary Sponge Kidneys Medical History Depression Medical History Anxiety Medical History colitis Hospitalization History kidney stones 2010
--- OUTSIDE RECORDS SUMMARY | 2020-02-29 16:06 | XMS REPORT ---
Author Author Madhuri WEINERy NORM Organization [facility] Address [address] [place] [address] Care Team Providers Care Dedicated Regional Driver Name Role Phone REGINETANIKA PERKINSY Unavailable PROBLEMS Type Condition ICD9-CM Code CFH90-LS Code Onset Dates Condition S tatus SNOMED Code Problem Generalized anxiety disorder F41.1 A ctive 62375604 Problem Major depressive disorder, recurrent, mild F33.0 Active 676200128 Problem Depression F32.9 Active 38172678 Problem Major depressive disorder, recurrent episode, moderate F33.1 Active 301003861 Problem Routine health maintenance Z00.00 Act ruben 194478909 Problem 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 Active 748812163 Problem Low back pain M54.5 Active 067372 009 Problem Post depression F53 Active 92422413 Problem History of substance abuse Z87.898 Act ruben 406611802 Problem Genital warts A63.0 Active 800354 007 Problem Anxiety F41.9 Active 93766612 Problem Other chronic pain G89.29 Active 8 4162706 Problem OAB (overactive bladder) N32.81 Activ e 998965969 Problem KIESHA (generalized anxiety disorder) F41.1 Active 82446996 Problem Moderate episode of recurrent major depressive disorder F33.1 Active 596457477 ALLERGIES No Information ENCOUNTERS Encounter Location Date Diagnosis [facility] [address] [id number] [place] [address] Sep, Genital warts A63.0 [facility] [address] [place] [id number] [place] [address] 30 Aug, 2019 Well woman exam Z01.419 ; Screening for cervical cancer Z12.4 ; Screening examination for sexually transmitted disease Z11.3 ; Genital warts A63.0 and Encounter for immunization Z23 [facility] [address] [facility] [id number] [address] [place] [address] Apr, Rash R21 [facility] [address] [place] [id number] [address] [place] [address] Jan, Epigastric abdominal pain R1 0.13 and Acute gastritis without hemorrhage, unspecified gastritis type K29.00 [facility] [address] [place] [id number] [place] [address] December, [facility] [address] [address] December, Grade I hemorrhoids K64.0 [facility] [address] [place] [id number] [address] [place] [address] December, Hemorrhoids, thrombosed K64. 5 [facility] [address] [place] [id number] [address] [place] [address] Aug, Herpes labialis B00.1 [facility] [address] [id number] [address] Aug, [facility] [address] [place] [id number] [address] [place] [address] December, Other sites of candidiasis B 37.89 and Infection of nipple associated with the puerperium O91.02 [facility] [address] [id number] December, Dental examination Z01.20 [facility] [address] [id number] December, Encounter for dental examination Z01.20 [facility] [address] [address] Oct, [facility] [address] [address] Oct, Moderate episode of recurrent major depr essive disorder F33.1 ; Post depression F53 and KIESHA (generalized anxiety disorder) F41.1 [facility] [address] [id number] Sep, Dental examination Z01.20 [facility] [address] [id number] Jun, Dental examination Z01.20 [facility] [address] [address] Apr, Dental examination Z01.20 [facility] [address] [id number] Mar, Encounter for dental examination Z01.20 [facility] [address] [address] Mar, Screening, anemia, deficiency, iron Z13. 0 [facility] [address] [id number] Sep, Dental caries K02.9 [facility] [address] [address] Jul, Encounter for test Z32.00 [facility] [address] [address] Jun, Dental examination Z01.20 [facility] [address] [address] Jun, [place] [address] [address] Jun, Generalized anxiety disorder F41.1 and M faisalor depressive disorder, recurrent episode, moderate F33.1 [facility] [address] [address] May, [facility] [address] [address] May, [facility] [address] [address] May, Urinary frequency R35.0 and OAB (overact ruben bladder) N32.81 [facility] [address] [address] Mar, [facility] [address] [address] Mar, Generalized anxiety disorder F41.1 and Stewart fishman depressive disorder, recurrent episode, moderate F33.1 [place] [address] [address] Mar, Major depressive disorder, recurrent epi sode, moderate F33.1 ; Generalized anxiety disorder F41.1 and History of substance abuse Z87.898 [place] [address] [address] Mar, Anxiety F41.9 ; Depression F32.9 ; Gener alized anxiety disorder F41.1 and Severe episode of recurrent major depressive disorder, with psychotic features F33.3 [place] [address] [address] Mar, Major depressive disorder, recurrent, mi ld F33.0 and Anxiety F41.9 [place] [address] [address] Feb, Anxiety F41.9 ; Low back pain M54.5 and Other chronic pain G89.29 [place] [address] [address] Jan, [place] [address] [address] Jan, Major depressive disorder, recurrent epi sode, moderate F33.1 ; Generalized anxiety disorder F41.1 and History of substance abuse Z87.898 [place] [address] [address] Jan, Anxiety F41.9 ; Major depressive disorde r, recurrent, mild F33.0 ; Primary insomnia F51.01 and Acute left-sided low back pain with left-sided sciatica M54.42 [place] [address] [address] Jan, Major depressive disorder, recurrent epi sode, moderate F33.1 ; Generalized anxiety disorder F41.1 and History of substance abuse Z87.898 [place] [address] [address] Jan, Major depressive disorder, recurrent epi sode, moderate F33.1 ; Generalized anxiety disorder F41.1 and History of substance abuse Z87.898 [place] [address] [address] December, Major depressive disorder, recurrent epi sode, moderate F33.1 ; Generalized anxiety disorder F41.1 and History of substance abuse Z87.898 [place] [address] [address] December, Routine health maintenance Z00.00 ; Medu llary sponge kidney Q61.5 ; Depression F32.9 ; Major depressive disorder, recurrent, mild F33.0 and Anxiety F41.9 [place] [address] [address] December, Routine health maintenance Z00.00 ; Medu llary sponge kidney Q61.5 ; Major depressive disorder, recurrent, mild F33.0 ; Depression F32.9 ; Anxiety F41.9 and History of substance abuse Z87.898 [place] [address] [address] December, Major depressive disorder, recurrent, mi ld F33.0 ; Depression F32.9 and Anxiety F41.9 [place] [address] [address] December, Anxiety F41.9 and Depression F32.9 [place] [address] [address] Nov, Depression F32.9 and Anxiety F41.[address] [address] Nov, Anxiety F41.9 ; Major depressive disorde r, recurrent, mild F33.0 ; Depression F32.9 ; Substance abuse F19.10 and Substance addiction F19.20 [place] [address] [address] Jul, [facility] [address] [address] Jul, [facility] [address] [address] Jun, Dysuria R30.0 ; Screening for malignant neoplasm of cervix Z12.4 ; Vaginal discharge N89.8 ; Costovertebral angle pain M54.9 ; Urinary frequency R35.0 ; Suprapubic pain R10.2 ; History of hematuria Z87.448 and History of recurrent UTIs Z87.440 [facility] [address] [address] Feb, Anxiety, generalized 300.02 ; Social dillon esmer 300.23 ; Major depression 296.20 ; No condition on [place] II V71.09 and No condition on axis III V71.09 [place] [address] [address] Feb, Panic disorder without agoraphobia 300.0 1 ; Depressive disorder, not elsewhere classified 311 and Polaris II diagnosis deferred 799.9 [facility] [address] [address] Jan, Insect bite 919.4 [facility] [address] [address] 14 Nov, 2014 [facility] [address] [address] Nov, [facility] [address] [address] Jul, [facility] [address] [address] Jul, [facility] [address] [address] Oct, [facility] [address] [address] Oct, [facility] [address] [address] Oct, [facility] [address] [id number] [place] [address] Oct, [facility] [address] [id number] [place] [address] Oct, [facility] [address] [id number] [place] [address] Oct, [facility] [address] [place] [id number] [place] [address] Oct, [facility] [address] [id number] [place] [address] Oct, [facility] [address] [place] [id number] [place] [address] Sep, [facility] [address] [id number] [place] [address] Sep, [facility] [address] [place] [id number] [place] [address] Aug, [facility] [address] [id number] [place] [address] Aug, [facility] [address] [id number] [place] [address] Sep, IMMUNIZATIONS No Known Immunizations SOCIAL HISTORY Never Assessed REASON FOR VISIT PLAN OF CARE VITAL SIGNS Height 67 in 2013-10-01 Weight 126.5 lbs 2013-10-01 Temperature 98.3 degrees Fahrenheit 2013-10-01 Heart Rate 88 bpm 2013-10-01 Respiratory Rate 18 2013-10-01 Blood pressure systolic 99 mmHg 2013-10-01 Blood pressure diastolic 61 mmHg 2013-10-01 MEDICATIONS Unknown Medications RESULTS No Results PROCEDURES Procedure Date Ordered Result Body Site URINE TEST Oct 01, 2013 URINALYSIS, AUTO, W/O SCOPE Oct 01, 2013 INSTRUCTIONS MEDICATIONS ADMINISTERED No Known Medications MEDICAL (GENERAL) HISTORY Type Description Date Medical History Medulary Sponge Kidneys Medical History Depression Medical History Anxiety Medical History colitis Medical History acid reflux following child Surgical History No Surgical history information Hospitalization History kidney stones 2010
--- OUTSIDE RECORDS SUMMARY | 2020-02-29 16:06 | XMS REPORT ---
Author Author Ana Laura Coronado Doctor Organization [facility] Address Unknown Phone Unavailable Care Team Providers Care Toe Puller Name Role Phone Migration, Doctor Unavailable Unavailable PROBLEMS Type Condition ICD9-CM Code [id number] Code Onset Dates Condition S tatus SNOMED Code Problem Major depressive disorder, recurrent, mild F33.0 Active 895123228 Problem Major depressive disorder, recurrent episode, moderate F33.1 Active 136259782 Problem Generalized anxiety disorder F41.1 A ctive 70358440 Problem History of substance abuse Z87.898 Act ruben 772272568 Problem Routine health maintenance Z00.00 Act ruben 114296530 Problem 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 Active 160006542 Problem Post depression F53 Active 75455220 Problem Anxiety F41.9 Active 99604398 Problem KIESHA (generalized anxiety disorder) F41.1 Active 84372861 Problem Depression F32.9 Active 76149967 Problem Low back pain M54.5 Active 385436 009 Problem Other chronic pain G89.29 Active 8 3974726 Problem OAB (overactive bladder) N32.81 Activ e 744106432 Problem Moderate episode of recurrent major depressive disorder F33.1 Active 641489393 ALLERGIES No Information ENCOUNTERS Encounter Location Date Diagnosis [facility] [address] [facility] [id number] [address] [place] [phone] Aug, Herpes labialis B00.1 [facility] [address] [place] [address] Aug, [facility] [address] [facility] [id number] [address] [place] [phone] December, Other sites of candidiasis B 37.89 and Infection of nipple associated with the puerperium O91.02 [facility] [address] [facility] [id number] [address] [place] [address] [id number] December, Dental examination Z01.20 [facility] [address] [place] [id number] [address] [place] [address] [id number] December, Encounter for dental examina tion Z01.20 [facility] [address] [facility] [id number] [address] [place] [phone] Oct, [facility] [address] [facility] [id number] [address] [place] [phone] Oct, Moderate episode of recurren t major depressive disorder F33.1 ; Post depression F53 and KIESHA (generalized anxiety disorder) F41.1 [facility] [address] [id number] [address] [place] [address] [id number] Sep, Dental examination Z01.20 [facility] [address] [id number] [place] [address] [phone] Jun, Dental examination Z01.20 [facility] [address] [facility] [id number] [address] [place] [phone] Apr, Dental examination Z01.20 [facility] [address] [id number] [place] [address] [id number] Mar, Encounter for dental examina tion Z01.20 [facility] [address] [id number] [address] [place] [phone] Mar, Screening, anemia, deficienc y, iron Z13.0 [facility] [address] [id number] [address] [place] [address] [id number] Sep, Dental caries K02.9 [facility] [address] [place] [id number] [address] [place] [phone] Jul, Encounter for test Z32.00 [facility] [address] [facility] [id number] [address] [place] [phone] Jun, Dental examination Z01.20 [facility] [address] [facility] [id number] [address] [place] [phone] Jun, [facility] [address] [place] [id number] [place] [phone] Jun, Generalized anxiety disorder F41.1 and Major depressive disorder, recurrent episode, moderate F33.1 [place] [address] [phone] May, [facility] [address] [place] [id number] [place] [phone] May, [place] [address] [address] May, Urinary frequency R35.0 and OAB (overactive bladder) N32.81 [place] [address] [place] [id number] [place] [phone] Mar, [place] [address] [address] Mar, Generalized anxiety disorder F41.1 and Major depressive disorder, recurrent episode, moderate F33.1 [place] [address] [address] Mar, Major depressive disorder, r ecurrent episode, moderate F33.1 ; Generalized anxiety disorder F41.1 and History of substance abuse Z87.[address] [address] Mar, Anxiety F41.9 ; Depression F 32.9 ; Generalized anxiety disorder F41.1 and Severe episode of recurrent major depressive disorder, with psychotic features F33.3 [place] [address] [address] Mar, Major depressive disorder, r ecurrent, mild F33.0 and Anxiety F41.[address] [address] Feb, Anxiety F41.9 ; Low back claudine n M54.5 and Other chronic pain G89.[address] [address] Jan, [place] [address] [facility] [id number] [address] [place] [phone] Jan, Major depressive disorder, r ecurrent episode, moderate F33.1 ; Generalized anxiety disorder F41.1 and History of substance abuse Z87.898 [place] [address] [facility] [id number] [address] [place] [address] Jan, Anxiety F41.9 ; Major depres sive disorder, recurrent, mild F33.0 ; Primary insomnia F51.01 and Acute left-sided low back pain with left-sided sciatica M54.42 [place] [address] [facility] [id number] [address] [place] [phone] Jan, Major depressive disorder, r ecurrent episode, moderate F33.1 ; Generalized anxiety disorder F41.1 and History of substance abuse Z87.898 [place] [address] [place] [id number] [place] [phone] Jan, Major depressive disorder, r ecurrent episode, moderate F33.1 ; Generalized anxiety disorder F41.1 and History of substance abuse Z87.898 [place] [address] [place] [id number] [address] [place] [address] December, Major depressive disorder, r ecurrent episode, moderate F33.1 ; Generalized anxiety disorder F41.1 and History of substance abuse Z87.898 [place] [address] [place] [id number] [address] [place] [address] December, Routine health maintenance Z 00.00 ; 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 ; Depression F32.9 ; Major depressive disorder, recurrent, mild F33.0 and Anxiety F41.9 [place] [address] [facility] [id number] [address] [place] [address] December, Routine health maintenance Z 00.00 ; 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 ; Major depressive disorder, recurrent, mild F33.0 ; Depression F32.9 ; Anxiety F41.9 and History of substance abuse Z87.898 [place] [address] [place] [id number] [address] [place] [address] December, Major depressive disorder, r ecurrent, mild F33.0 ; Depression F32.9 and Anxiety F41.9 [place] [id number] December, Anxiety F41.9 and Depression F32.[address] [address] Nov, Depression F32.9 and Anxiety F41.[address] [address] Nov, Anxiety F41.9 ; Major depres sive disorder, recurrent, mild F33.0 ; Depression F32.9 ; Substance abuse F19.10 and Substance addiction F19.[address] [address] Jul, [address] [address] Jul, [address] [address] Jun, Dysuria R30.0 ; Screening fo r malignant neoplasm of cervix Z12.4 ; Vaginal discharge N89.8 ; Costovertebral angle pain M54.9 ; Urinary frequency R35.0 ; Suprapubic pain R10.2 ; History of hematuria Z87.448 and History of recurrent UTIs Z87.[address] [address] Feb, Anxiety, generalized 300.02 ; Social phobia 300.23 ; Major depression 296.20 ; No condition on [place] II V71.09 and No condition on axis III V71.[address] [address] Feb, Panic disorder without agora phobia 300.01 ; Depressive disorder, not elsewhere classified 311 and [place] II diagnosis deferred 799.9 [place] [id number] [address] [place] [address], [place] [address] Jan, Insect bite 919.4 [facility] [address] [id number] [address] [place] [address], [place] [address] 14 Nov, 2014 [facility] [address] [id number] [address] [place] [address], [place] [address] Nov, [facility] [address] [id number] [address] [place] [address], [place] [address] Jul, [facility] [address] [id number] [address] [place] [address], [place] [address] Jul, [facility] [address] [id number] [address] [place] [address], [place] [address] Oct, [facility] [address] [id number] [address] [place] [address], [place] [address] 18 Oct, 2013 [facility] [address] [id number] [address] [place] [address], [place] [address] Oct, [facility] [address] [id number] [address] [place] [address], [place] [address] Oct, [facility] [address] [id number] [address] [place] [address], [place] [address] Oct, [facility] [address] [id number] [address] [place] [address], [place] [address] Oct, [facility] [address] [id number] [address] [place] [address], [place] [address] Oct, [facility] [address] [id number] [address] [place] [address], [place] [address] Oct, [facility] [address] [id number] [address] [place] [address], [place] [address] Sep, [facility] [address] [id number] [address] [place] [address], [place] [address] Sep, [facility] [address] [id number] [place] [address] Aug, [facility] [address] [facility] [id number] [place] [address] Aug, [facility] [address] [facility] [id number] [address] [place] [address] Sep, IMMUNIZATIONS No Known Immunizations SOCIAL HISTORY Never Assessed REASON FOR VISIT [facility] PLAN OF CARE VITAL SIGNS MEDICATIONS No Known Medications RESULTS No Results PROCEDURES No Known procedures INSTRUCTIONS MEDICATIONS ADMINISTERED No Known Medications MEDICAL (GENERAL) HISTORY Type Description Date Medical History Medulary Sponge Kidneys Medical History Depression Medical History Anxiety Medical History colitis Surgical History No know Surgical history Hospitalization History kidney stones 2010
--- OUTSIDE RECORDS SUMMARY | 2020-02-29 16:06 | XMS REPORT ---
Author Author Ana Laura Coronado Doctor Organization [facility] Address Unknown Phone Unavailable Care Team Providers Care Methods Analyst Data Processing Name Role Phone Migration, Doctor Unavailable Unavailable PROBLEMS Type Condition ICD9-CM Code [id number] Code Onset Dates Condition S tatus SNOMED Code Problem Major depressive disorder, recurrent, mild F33.0 Active 275671806 Problem Major depressive disorder, recurrent episode, moderate F33.1 Active 075535693 Problem Generalized anxiety disorder F41.1 A ctive 37883197 Problem History of substance abuse Z87.898 Act ruben 952842380 Problem Routine health maintenance Z00.00 Act ruben 878362568 Problem 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 Active 247364226 Problem Post depression F53 Active 18941857 Problem Anxiety F41.9 Active 12483290 Problem KIESHA (generalized anxiety disorder) F41.1 Active 14900773 Problem Depression F32.9 Active 90288480 Problem Low back pain M54.5 Active 523333 009 Problem Other chronic pain G89.29 Active 8 0828248 Problem OAB (overactive bladder) N32.81 Activ e 612324085 Problem Moderate episode of recurrent major depressive disorder F33.1 Active 433696392 ALLERGIES No Information ENCOUNTERS Encounter Location Date Diagnosis [facility] [id number] [place] [address] December, [facility] [address] [place] [id number] [address] [place] [phone] December, Grade I hemorrhoids K64.0 [facility] [address] [place] [id number] [address] [place] [phone] December, Hemorrhoids, thrombosed K64. 5 [facility] [address] [facility] [id number] [address] [place] [address] Aug, Herpes labialis B00.1 [facility] [address] [place] [address] Aug, [facility] [address] [place] [id number] [address] [place] [address] December, Other sites of candidiasis B 37.89 and Infection of nipple associated with the puerperium O91.02 [facility] [address] [facility] [id number] [address] [place] [address] [id number] December, Dental examination Z01.20 [facility] [address] [id number] December, Encounter for dental examina tion Z01.20 [facility] [address] [place] [id number] [place] [address] Oct, [facility] [address] [place] [id number] [place] [address] Oct, Moderate episode of recurren t major depressive disorder F33.1 ; Post depression F53 and KIESHA (generalized anxiety disorder) F41.1 [facility] [id number] [place] [id number] Sep, Dental examination Z01.20 [facility] [address] [id number] Jun, Dental examination Z01.20 [facility] [address] [place] [id number] [address] [place] [address] Apr, Dental examination Z01.20 [facility] [address] [id number] Mar, Encounter for dental examina tion Z01.20 [facility] [address] [place] [id number] [address] [place] [address] Mar, Screening, anemia, deficienc y, iron Z13.0 [facility] [address] [place] [id number] [address] [place] [address] [id number] Sep, Dental caries K02.9 [facility] [address] [place] [id number] [place] [address] Jul, Encounter for test Z32.00 [facility] [address] [facility] [id number] [address] [place] [phone] Jun, Dental examination Z01.20 [facility] [address] [facility] [id number] [address] [place] [address] Jun, [facility] [address] [place] [id number] [address] [place] [phone] Jun, Generalized anxiety disorder F41.1 and Major depressive disorder, recurrent episode, moderate F33.1 [facility] [address] [facility] [id number] [address] [place] [address] May, [facility] [address] [facility] [id number] [address] [place] [phone] May, [facility] [address] [place] [id number] [address] [place] [address] May, Urinary frequency R35.0 and OAB (overactive bladder) N32.81 [facility] [address] [place] [id number] [address] [place] [phone] Mar, [facility] [address] [place] [id number] [address] [place] [phone] Mar, Generalized anxiety disorder F41.1 and Major depressive disorder, recurrent episode, moderate F33.1 [facility] [address] [place] [id number] [address] [place] [address] Mar, Major depressive disorder, r ecurrent episode, moderate F33.1 ; Generalized anxiety disorder F41.1 and History of substance abuse Z87.898 [facility] [address] [place] [id number] [address] [place] [address] Mar, Anxiety F41.9 ; Depression F 32.9 ; Generalized anxiety disorder F41.1 and Severe episode of recurrent major depressive disorder, with psychotic features F33.3 [facility] [address] [place] [id number] [address] [place] [address] Mar, Major depressive disorder, r ecurrent, mild F33.0 and Anxiety F41.9 [place] [address] [address] Feb, Anxiety F41.9 ; Low back claudine n M54.5 and Other chronic pain G89.29 [place] [address] [place] [id number] [address] [place] [address] Jan, [place] [address] [address] Jan, Major depressive disorder, r ecurrent episode, moderate F33.1 ; Generalized anxiety disorder F41.1 and History of substance abuse Z87.898 [place] [address] [address] Jan, Anxiety F41.9 ; Major depres sive disorder, recurrent, mild F33.0 ; Primary insomnia F51.01 and Acute left-sided low back pain with left-sided sciatica M54.42 [place] [address] [place] [id number] [address] [place] [address] Jan, Major depressive disorder, r ecurrent episode, moderate F33.1 ; Generalized anxiety disorder F41.1 and History of substance abuse Z87.898 [place] [address] [place] [id number] [address] [place] [address] 09 Jan, 2016 Major depressive disorder, r ecurrent episode, moderate F33.1 ; Generalized anxiety disorder F41.1 and History of substance abuse Z87.898 [place] [address] [place] [id number] [address] [place] [address] December, Major depressive disorder, r ecurrent episode, moderate F33.1 ; Generalized anxiety disorder F41.1 and History of substance abuse Z87.898 [place] [address] [place] [id number] [address] [place] [address] December, Routine health maintenance Z 00.00 ; 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 ; Depression F32.9 ; Major depressive disorder, recurrent, mild F33.0 and Anxiety F41.9 [place] [address] [address] December, Routine health maintenance Z 00.00 ; 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 ; Major depressive disorder, recurrent, mild F33.0 ; Depression F32.9 ; Anxiety F41.9 and History of substance abuse Z87.[address] [address] December, Major depressive disorder, r ecurrent, mild F33.0 ; Depression F32.9 and Anxiety F41.[address] [address] December, Anxiety F41.9 and Depression F32.[address] [address] Nov, Depression F32.9 and Anxiety F41.9 [place] [address] [address] Nov, Anxiety F41.9 ; Major depres sive disorder, recurrent, mild F33.0 ; Depression F32.9 ; Substance abuse F19.10 and Substance addiction F19.[address] [address] Jul, [address] [address] Jul, [address] [address] 30 Jun, 2015 Dysuria R30.0 ; Screening fo r malignant neoplasm of cervix Z12.4 ; Vaginal discharge N89.8 ; Costovertebral angle pain M54.9 ; Urinary frequency R35.0 ; Suprapubic pain R10.2 ; History of hematuria Z87.448 and History of recurrent UTIs Z87.[address] [address] 22 Feb, 2015 Anxiety, generalized 300.02 ; Social phobia 300.23 ; Major depression 296.20 ; No condition on [place] II V71.09 and No condition on axis III V71.09 [facility] [address] [facility] [id number] [address] [place] [address] 07 Feb, 2015 Panic disorder without agora phobia 300.01 ; Depressive disorder, not elsewhere classified 311 and [place] II diagnosis deferred 799.9 [facility] [address] [facility] [id number] [address] [place] [address] Jan, Insect bite 919.4 [facility] [address] [address] 14 Nov, 2014 [facility] [address] [place] [id number] [address] [place] [phone] Nov, [facility] [address] [place] [id number] [address] [place] [address] Jul, [facility] [address] [place] [id number] [address] [place] [address] Jul, [facility] [address] [place] [id number] [address] [place] [address] Oct, [facility] [address] [place] [id number] [address] [place] [address] 18 Oct, 2013 [facility] [address] [place] [id number] [address] [place] [address] Oct, [facility] [address] [place] [id number] [address] [place] [phone] 14 Oct, 2013 [facility] [address] [place] [id number] [address] [place] [phone] 10 Oct, 2013 [facility] [address] [place] [id number] [address] [place] [phone] 06 Oct, 2013 [facility] [address] [place] [id number] [address] [place] [phone] Oct, [facility] [address] [facility] [id number] [address] [place] [phone] Oct, [facility] [address] [facility] [id number] [address] [place] [address] Sep, [facility] [address] [facility] [id number] [address] [place] [phone] Sep, [facility] [address] [facility] [id number] [address] [place] [phone] Aug, [facility] [address] [facility] [id number] [address] [place] [phone] Aug, [facility] [address] [facility] [id number] [address] [place] [phone] Sep, IMMUNIZATIONS No Known Immunizations SOCIAL HISTORY Never Assessed REASON FOR VISIT EMR-[facility] PLAN OF CARE VITAL SIGNS MEDICATIONS Unknown Medications RESULTS No Results PROCEDURES Procedure Date Ordered Result Body Site CYTOPATH C/V AUTO FLUID REDO October 04, 2013 INSTRUCTIONS MEDICATIONS ADMINISTERED No Known Medications MEDICAL (GENERAL) HISTORY Type Description Date Medical History Medulary Sponge Kidneys Medical History Depression Medical History Anxiety Medical History colitis Surgical History No Surgical history information Hospitalization History kidney stones 2010
--- OUTSIDE RECORDS SUMMARY | 2020-02-29 16:06 | XMS REPORT ---
Author Author Ana Laura HANSEN [facility] Address Unknown Care Team Providers Care Artillery Specialist Name Role Phone AGUSTIN HANSEN Unavailable PROBLEMS Type Condition ICD9-CM Code AVW06-AM Code Onset Dates Condition S tatus SNOMED Code Problem History of substance abuse Z87.898 Act ruben 044707866 Problem 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 Active 501476301 Problem Routine health maintenance Z00.00 Act ruben 649687873 Problem KIESHA (generalized anxiety disorder) F41.1 Active 29263749 Problem Post depression F53 Active 11689418 Problem Other chronic pain G89.29 Active 8 3139328 Problem Low back pain M54.5 Active 517737 009 Problem Moderate episode of recurrent major depressive disorder F33.1 Active 745153352 Problem OAB (overactive bladder) N32.81 Activ e 017854222 Problem Generalized anxiety disorder F41.1 A ctive 67287289 Problem Major depressive disorder, recurrent episode, moderate F33.1 Active 374152702 Problem Depression F32.9 Active 82085634 Problem Major depressive disorder, recurrent, mild F33.0 Active 142640976 Problem Anxiety F41.9 Active 01115093 ALLERGIES Substance Reaction Event Type Date Status Wellbutrin Hallucinations Drug Allergy December, Active ENCOUNTERS Encounter Location Date Diagnosis [facility] [address] [facility] [id number] [address] [place] [address] December, Other sites of candidiasis B 37.89 and Infection of nipple associated with the puerperium O91.02 [facility] [address] [place] [address] [phone] December, Dental examination Z01.20 [facility] [address] [facility] [id number] [address] [place] [address] [phone] December, Encounter for dental examina tion Z01.20 [facility] [address] [facility] [id number] [address] [place] [address] Oct, [facility] [address] [address] Oct, Moderate episode of recurren t major depressive disorder F33.1 ; Post depression F53 and KIESHA (generalized anxiety disorder) F41.1 [facility] [address] [place] [id number] [place] [address] [phone] Sep, Dental examination Z01.20 [facility] [address] [place] [address] [phone] Jun, Dental examination Z01.20 [facility] [address] [address] Apr, Dental examination Z01.20 [facility] [address] [id number] Mar, Encounter for dental examina tion Z01.20 [facility] [address] [place] [id number] [address] [place] [address] Mar, Screening, anemia, deficienc y, iron Z13.0 [facility] [address] [place] [address] [phone] Sep, Dental caries K02.9 [facility] [address] [address] Jul, Encounter for test Z32.00 [facility] [address] [facility] [id number] [address] [place] [address] Jun, Dental examination Z01.20 [facility] [address] [address] Jun, [facility] [address] [place] [id number] [place] [address] Jun, Generalized anxiety disorder F41.1 and Major depressive disorder, recurrent episode, moderate F33.1 [facility] [address] [place] [id number] [address] [place] [address] May, [place] [address] [facility] [id number] [address] [place] [address] May, [facility] [address] [facility] [id number] [address] [place] [address] May, Urinary frequency R35.0 and OAB (overactive bladder) N32.81 [place] [address] [place] [id number] [address] [place] [address] Mar, [place] [address] [place] [id number] [place] [address] Mar, Generalized anxiety disorder F41.1 and Major depressive disorder, recurrent episode, moderate F33.[address] [address] Mar, Major depressive disorder, r ecurrent episode, moderate F33.1 ; Generalized anxiety disorder F41.1 and History of substance abuse Z87.898 [place] [address] [address] Mar, Anxiety F41.9 ; Depression F 32.9 ; Generalized anxiety disorder F41.1 and Severe episode of recurrent major depressive disorder, with psychotic features F33.3 [place] [address] [address] Mar, Major depressive disorder, r ecurrent, mild F33.0 and Anxiety F41.9 [place] [address] [place] [id number] [address] [place] [address] Feb, Anxiety F41.9 ; Low back claudine n M54.5 and Other chronic pain G89.29 [place] [address] [place] [id number] [place] [address] Jan, [place] [address] [place] [id number] [place] [address] Jan, Major depressive disorder, r ecurrent episode, moderate F33.1 ; Generalized anxiety disorder F41.1 and History of substance abuse Z87.898 [place] [address] [address] Jan, Anxiety F41.9 ; Major depres sive disorder, recurrent, mild F33.0 ; Primary insomnia F51.01 and Acute left-sided low back pain with left-sided sciatica M54.42 [place] [address] [place] [id number] Jan, Major depressive disorder, r ecurrent episode, moderate F33.1 ; Generalized anxiety disorder F41.1 and History of substance abuse Z87.8 [place] [address] [place] [id number] Jan, Major depressive disorder, r ecurrent episode, moderate F33.1 ; Generalized anxiety disorder F41.1 and History of substance abuse Z87.8 [place] [address] [address] December, Major depressive disorder, r ecurrent episode, moderate F33.1 ; Generalized anxiety disorder F41.1 and History of substance abuse Z87.898 [place] [address] [address] December, Routine health maintenance Z 00.00 ; 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 ; Depression F32.9 ; Major depressive disorder, recurrent, mild F33.0 and Anxiety F41.9 [place] [address] [place] [id number] [address] [place] [address] December, Routine health maintenance Z 00.00 ; 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 ; Major depressive disorder, recurrent, mild F33.0 ; Depression F32.9 ; Anxiety F41.9 and History of substance abuse Z87.8 [place] [address] [address] December, Major depressive disorder, r ecurrent, mild F33.0 ; Depression F32.9 and Anxiety F41.9 [place] [address] [place] [id number] [address] [place] [address] December, Anxiety F41.9 and Depression F32.9 [place] [address] [place] [id number] [address] [place] [address] Nov, Depression F32.9 and Anxiety F41.9 [place] [address] [address] Nov, Anxiety F41.9 ; Major depres sive disorder, recurrent, mild F33.0 ; Depression F32.9 ; Substance abuse F19.10 and Substance addiction F19.[address] [address] Jul, [place] [address] [address] Jul, [address] [address] Jun, Dysuria R30.0 ; Screening fo r malignant neoplasm of cervix Z12.4 ; Vaginal discharge N89.8 ; Costovertebral angle pain M54.9 ; Urinary frequency R35.0 ; Suprapubic pain R10.2 ; History of hematuria Z87.448 and History of recurrent UTIs Z87.440 [place] [address] [place] [id number] [address] [place] [address] Feb, Anxiety, generalized 300.02 ; Social phobia 300.23 ; Major depression 296.20 ; No condition on [place] II V71.09 and No condition on axis III V71.[address] [address] Feb, Panic disorder without agora phobia 300.01 ; Depressive disorder, not elsewhere classified 311 and [place] II diagnosis deferred 799.9 [place] [address] [place] [id number] [address] [place] [address] Jan, Insect bite 919.[address] [place] [address], [place] [address] 14 Nov, 2014 [facility] [address] [id number] [address] [place] [address], [place] [address] Nov, [facility] [address] [id number] [address] [place] [address], [place] [address] Jul, [facility] [address] [id number] [address] [place] [address], [place] [address] Jul, [facility] [address] [id number] [address] [place] [address], [place] [address] Oct, [facility] [address] [id number] [address] [place] [address], [place] [address] 18 Oct, 2013 [facility] [address] [id number] [address] [place] [address], [place] [address] Oct, [facility] [address] [id number] [address] [place] [address], [place] [address] Oct, [facility] [address] [id number] [address] [place] [address], [place] [address] Oct, [facility] [address] [id number] [address] [place] [address], [place] [address] Oct, [facility] [address] [id number] [address] [place] [address], [place] [address] Oct, [facility] [address] [id number] [address] [place] [address], [place] [address] Oct, [facility] [address] [id number] [address] [place] [address], [place] [address] Sep, [facility] [address] [id number] [address] [place] [address], [place] [address] Sep, [facility] [address] [id number] [address] [place] [address], [place] [address] Aug, [facility] [address] [id number] [address] [place] [address], [place] [address] Aug, [facility] [address] [facility] [id number] [address] [place] [address] Sep, IMMUNIZATIONS No Known Immunizations SOCIAL HISTORY Never Assessed REASON FOR VISIT FILLING PLAN OF CARE Activity Details Follow Up prn Reason:restorative VITAL SIGNS Height 67 in 2017-12-02 Blood pressure systolic 79 mmHg 2017-12-02 Blood pressure diastolic 40 mmHg 2017-12-02 MEDICATIONS Medication Instructions Dosage Frequency Start Date End Date Duration S tatus BusPIRone HCl 10 MG Orally Three times a day 1 tablet 8h Not-Taking Pepcid Not-Taking Acetaminophen Active Diflucan 150 MG Orally Once a day 1 tablet 24h Jul, 1 dose Not-Taking Pre- Active Colace Not-Taking AZO Cranberry 250-30 MG Not-Taking Escitalopram Oxalate 20 mg Orally Once a day 1 tablet 24h 08 2015 30 day(s) Not-Taking Iron Not-Taking Anusol-HC 2.5 % Rectal 3 times a day 1 application to affected area 8h May, Not-Taking Ortho Tri-Cyclen (28) 0.18/0.215/0.25 mg-35 mcg (28) take 1 tablet by oral route once daily Sep, Not-Taking RESULTS No Results PROCEDURES Procedure Date Ordered Result Body Site RESIN COMPOS - 2 SURFACES POSTERIOR December 02, 2017 PULP CAP - INDIRECT December 02, 2017 Billing Notes on claim December 02, 2017 INSTRUCTIONS MEDICATIONS ADMINISTERED No Known Medications MEDICAL (GENERAL) HISTORY Type Description Date Medical History Medulary Sponge Kidneys Medical History Depression Medical History Anxiety Medical History colitis Hospitalization History kidney stones 2010
--- OUTSIDE RECORDS SUMMARY | 2020-02-29 16:06 | XMS REPORT ---
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 Name Role Phone Migration, Doctor Unavailable Unavailable PROBLEMS Type Condition ICD9-CM Code KOR68-PY Code Onset Dates Condition S tatus SNOMED Code Problem Major depressive disorder, recurrent, mild F33.0 Active 856642636 Problem Major depressive disorder, recurrent episode, moderate F33.1 Active 542414341 Problem Generalized anxiety disorder F41.1 A ctive 72569663 Problem History of substance abuse Z87.898 Act ruben 949714089 Problem Routine health maintenance Z00.00 Act ruben 059498121 Problem 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 Active 836303497 Problem Post depression F53 Active 51062808 Problem Anxiety F41.9 Active 60450775 Problem KIESHA (generalized anxiety disorder) F41.1 Active 09421869 Problem Depression F32.9 Active 90556457 Problem Low back pain M54.5 Active 159119 009 Problem Other chronic pain G89.29 Active 8 0865048 Problem OAB (overactive bladder) N32.81 Activ e 394428359 Problem Moderate episode of recurrent major depressive disorder F33.1 Active 476472520 ALLERGIES No Information ENCOUNTERS Encounter Location Date Diagnosis [facility] [address] [facility] [id number] [address] [place] [address] Aug, Herpes labialis B00.1 [facility] [address] [place] [address] Aug, [facility] [address] [facility] [id number] [address] [place] [address] December, Other sites of candidiasis B 37.89 and Infection of nipple associated with the puerperium O91.02 [facility] [address] [facility] [id number] [address] [place] [address] [id number] December, Dental examination Z01.20 [facility] [address] [place] [id number] [address] [place] [address] [id number] December, Encounter for dental examina tion Z01.20 [facility] [address] [facility] [id number] [address] [place] [address] Oct, [facility] [address] [facility] [id number] [address] [place] [address] Oct, Moderate episode of recurren t major depressive disorder F33.1 ; Post depression F53 and KIESHA (generalized anxiety disorder) F41.1 [facility] [address] [id number] [address] [place] [address] [id number] Sep, Dental examination Z01.20 [facility] [address] [id number] [place] [address] [id number] Jun, Dental examination Z01.20 [facility] [address] [facility] [id number] [address] [place] [address] Apr, Dental examination Z01.20 [facility] [address] [id number] [place] [address] [phone] Mar, Encounter for dental examina tion Z01.20 [facility] [address] [id number] [address] [place] [address] Mar, Screening, anemia, deficienc y, iron Z13.0 [facility] [address] [id number] [address] [place] [address] [phone] Sep, Dental caries K02.9 [facility] [address] [place] [id number] [address] [place] [address] Jul, Encounter for test Z32.00 [facility] [address] [facility] [id number] [address] [place] [address] Jun, Dental examination Z01.20 [facility] [address] [facility] [id number] [address] [place] [address] Jun, [facility] [address] [place] [id number] [place] [address] Jun, Generalized anxiety disorder F41.1 and Major depressive disorder, recurrent episode, moderate F33.1 [place] [address] [address] May, [facility] [address] [place] [id number] [place] [address] May, [place] [address] [address] May, Urinary frequency R35.0 and OAB (overactive bladder) N32.81 [place] [address] [place] [id number] [place] [address] Mar, [place] [address] [address] Mar, Generalized anxiety disorder F41.1 and Major depressive disorder, recurrent episode, moderate F33.1 [place] [address] [address] Mar, Major depressive disorder, r ecurrent episode, moderate F33.1 ; Generalized anxiety disorder F41.1 and History of substance abuse Z87.[address] [address] Mar, Anxiety F41.9 ; Depression F 32.9 ; Generalized anxiety disorder F41.1 and Severe episode of recurrent major depressive disorder, with psychotic features F33.3 [place] [address] [address] Mar, Major depressive disorder, r ecurrent, mild F33.0 and Anxiety F41.[address] [address] Feb, Anxiety F41.9 ; Low back claudine n M54.5 and Other chronic pain G89.[address] [address] Jan, [place] [address] [facility] [id number] [address] [place] [address] Jan, Major depressive disorder, r ecurrent episode, moderate F33.1 ; Generalized anxiety disorder F41.1 and History of substance abuse Z87.898 [place] [address] [facility] [id number] [address] [place] [address] Jan, Anxiety F41.9 ; Major depres sive disorder, recurrent, mild F33.0 ; Primary insomnia F51.01 and Acute left-sided low back pain with left-sided sciatica M54.42 [place] [address] [facility] [id number] [address] [place] [address] Jan, Major depressive disorder, r ecurrent episode, moderate F33.1 ; Generalized anxiety disorder F41.1 and History of substance abuse Z87.898 [place] [address] [place] [id number] [place] [address] Jan, Major depressive disorder, r ecurrent episode, moderate F33.1 ; Generalized anxiety disorder F41.1 and History of substance abuse Z87.898 [place] [address] [place] [id number] [address] [place] [address] December, Major depressive disorder, r ecurrent episode, moderate F33.1 ; Generalized anxiety disorder F41.1 and History of substance abuse Z87.898 [place] [address] [place] [id number] [address] [place] [address] December, Routine health maintenance Z 00.00 ; 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 ; Depression F32.9 ; Major depressive disorder, recurrent, mild F33.0 and Anxiety F41.9 [place] [address] [facility] [id number] [address] [place] [address] December, Routine health maintenance Z 00.00 ; 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 ; Major depressive disorder, recurrent, mild F33.0 ; Depression F32.9 ; Anxiety F41.9 and History of substance abuse Z87.898 [place] [address] [place] [id number] [address] [place] [address] December, Major depressive disorder, r ecurrent, mild F33.0 ; Depression F32.9 and Anxiety F41.9 [place] [id number] December, Anxiety F41.9 and Depression F32.[address] [address] Nov, Depression F32.9 and Anxiety F41.[address] [address] Nov, Anxiety F41.9 ; Major depres sive disorder, recurrent, mild F33.0 ; Depression F32.9 ; Substance abuse F19.10 and Substance addiction F19.[address] [address] Jul, [address] [address] Jul, [address] [address] Jun, Dysuria R30.0 ; Screening fo r malignant neoplasm of cervix Z12.4 ; Vaginal discharge N89.8 ; Costovertebral angle pain M54.9 ; Urinary frequency R35.0 ; Suprapubic pain R10.2 ; History of hematuria Z87.448 and History of recurrent UTIs Z87.[address] [address] Feb, Anxiety, generalized 300.02 ; Social phobia 300.23 ; Major depression 296.20 ; No condition on [place] II V71.09 and No condition on axis III V71.[address] [address] Feb, Panic disorder without agora phobia 300.01 ; Depressive disorder, not elsewhere classified 311 and [place] II diagnosis deferred 799.9 [place] [id number] [address] [place] [address], [place] [address] Jan, Insect bite 919.4 [facility] [address] [id number] [address] [place] [address], [place] [address] 14 Nov, 2014 [facility] [address] [id number] [address] [place] [address], [place] [address] Nov, [facility] [address] [id number] [address] [place] [address], [place] [address] Jul, [facility] [address] [id number] [address] [place] [address], [place] [address] Jul, [facility] [address] [id number] [address] [place] [address], [place] [address] Oct, [facility] [address] [id number] [address] [place] [address], [place] [address] 18 Oct, 2013 [facility] [address] [id number] [address] [place] [address], [place] [address] Oct, [facility] [address] [id number] [address] [place] [address], [place] [address] Oct, [facility] [address] [id number] [address] [place] [address], [place] [address] Oct, [facility] [address] [id number] [address] [place] [address], [place] [address] Oct, [facility] [address] [id number] [address] [place] [address], [place] [address] Oct, [facility] [address] [id number] [address] [place] [address], [place] [address] Oct, [facility] [address] [id number] [address] [place] [address], [place] [address] Sep, [facility] [address] [id number] [address] [place] [address], [place] [address] Sep, [facility] [address] [id number] [address] [address] Aug, [facility] [address] [facility] [id number] [address] [address] Aug, [facility] [address] [facility] [id number] [address] [place] [address] Sep, IMMUNIZATIONS No Known Immunizations SOCIAL HISTORY Never Assessed REASON FOR VISIT EMR-[facility] [place] PLAN OF CARE VITAL SIGNS MEDICATIONS No Known Medications RESULTS No Results PROCEDURES No Known procedures INSTRUCTIONS MEDICATIONS ADMINISTERED No Known Medications MEDICAL (GENERAL) HISTORY Type Description Date Medical History Medulary Sponge Kidneys Medical History Depression Medical History Anxiety Medical History colitis Surgical History No know Surgical history Hospitalization History kidney stones 2010
--- OUTSIDE RECORDS SUMMARY | 2020-02-29 16:06 | XMS REPORT ---
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 Name Role Phone Migration, Doctor Unavailable Unavailable PROBLEMS Type Condition ICD9-CM Code [id number] Code Onset Dates Condition S tatus SNOMED Code Problem Major depressive disorder, recurrent, mild F33.0 Active 346039716 Problem Major depressive disorder, recurrent episode, moderate F33.1 Active 991152088 Problem Generalized anxiety disorder F41.1 A ctive 20928441 Problem History of substance abuse Z87.898 Act ruben 973699734 Problem Routine health maintenance Z00.00 Act ruben 607611573 Problem 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 Active 741394314 Problem Post depression F53 Active 69952072 Problem Anxiety F41.9 Active 32877584 Problem KIESHA (generalized anxiety disorder) F41.1 Active 33166804 Problem Depression F32.9 Active 65301772 Problem Low back pain M54.5 Active 580601 009 Problem Other chronic pain G89.29 Active 8 5329882 Problem OAB (overactive bladder) N32.81 Activ e 647353019 Problem Moderate episode of recurrent major depressive disorder F33.1 Active 283988293 ALLERGIES No Information ENCOUNTERS Encounter Location Date Diagnosis [facility] [address] [facility] [id number] [address] [place] [phone] Aug, Herpes labialis B00.1 [facility] [address] [place] [address] Aug, [facility] [address] [facility] [id number] [address] [place] [address] December, Other sites of candidiasis B 37.89 and Infection of nipple associated with the puerperium O91.02 [facility] [address] [facility] [id number] [address] [place] [address] [id number] December, Dental examination Z01.20 [facility] [address] [place] [id number] [address] [place] [address] [phone] December, Encounter for dental examina tion Z01.20 [facility] [address] [facility] [id number] [address] [place] [address] Oct, [facility] [address] [facility] [id number] [address] [place] [address] Oct, Moderate episode of recurren t major depressive disorder F33.1 ; Post depression F53 and KIESHA (generalized anxiety disorder) F41.1 [facility] [address] [id number] [address] [place] [address] [id number] Sep, Dental examination Z01.20 [facility] [address] [id number] [place] [address] [id number] Jun, Dental examination Z01.20 [facility] [address] [facility] [id number] [address] [place] [phone] Apr, Dental examination Z01.20 [facility] [address] [id number] [place] [address] [id number] Mar, Encounter for dental examina tion Z01.20 [facility] [address] [id number] [address] [place] [phone] Mar, Screening, anemia, deficienc y, iron Z13.0 [facility] [address] [id number] [address] [place] [address] [id number] Sep, Dental caries K02.9 [facility] [address] [place] [id number] [address] [place] [phone] Jul, Encounter for test Z32.00 [facility] [address] [facility] [id number] [address] [place] [phone] Jun, Dental examination Z01.20 [facility] [address] [facility] [id number] [address] [place] [address] Jun, [facility] [address] [place] [id number] [place] [address] Jun, Generalized anxiety disorder F41.1 and Major depressive disorder, recurrent episode, moderate F33.1 [place] [address] [address] May, [facility] [address] [place] [id number] [place] [phone] May, [place] [address] [address] May, Urinary frequency R35.0 and OAB (overactive bladder) N32.81 [place] [address] [place] [id number] [place] [address] Mar, [place] [address] [address] Mar, Generalized anxiety disorder F41.1 and Major depressive disorder, recurrent episode, moderate F33.1 [place] [address] [address] Mar, Major depressive disorder, r ecurrent episode, moderate F33.1 ; Generalized anxiety disorder F41.1 and History of substance abuse Z87.[address] [address] Mar, Anxiety F41.9 ; Depression F 32.9 ; Generalized anxiety disorder F41.1 and Severe episode of recurrent major depressive disorder, with psychotic features F33.3 [place] [address] [address] Mar, Major depressive disorder, r ecurrent, mild F33.0 and Anxiety F41.[address] [address] Feb, Anxiety F41.9 ; Low back claudine n M54.5 and Other chronic pain G89.[address] [address] Jan, [place] [address] [facility] [id number] [address] [place] [address] Jan, Major depressive disorder, r ecurrent episode, moderate F33.1 ; Generalized anxiety disorder F41.1 and History of substance abuse Z87.898 [place] [address] [facility] [id number] [address] [place] [address] Jan, Anxiety F41.9 ; Major depres sive disorder, recurrent, mild F33.0 ; Primary insomnia F51.01 and Acute left-sided low back pain with left-sided sciatica M54.42 [place] [address] [facility] [id number] [address] [place] [address] Jan, Major depressive disorder, r ecurrent episode, moderate F33.1 ; Generalized anxiety disorder F41.1 and History of substance abuse Z87.898 [place] [address] [place] [id number] [place] [address] Jan, Major depressive disorder, r ecurrent episode, moderate F33.1 ; Generalized anxiety disorder F41.1 and History of substance abuse Z87.898 [place] [address] [place] [id number] [address] [place] [address] December, Major depressive disorder, r ecurrent episode, moderate F33.1 ; Generalized anxiety disorder F41.1 and History of substance abuse Z87.898 [place] [address] [place] [id number] [address] [place] [address] December, Routine health maintenance Z 00.00 ; 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 ; Depression F32.9 ; Major depressive disorder, recurrent, mild F33.0 and Anxiety F41.9 [place] [address] [facility] [id number] [address] [place] [address] December, Routine health maintenance Z 00.00 ; 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 ; Major depressive disorder, recurrent, mild F33.0 ; Depression F32.9 ; Anxiety F41.9 and History of substance abuse Z87.898 [place] [address] [place] [id number] [address] [place] [address] December, Major depressive disorder, r ecurrent, mild F33.0 ; Depression F32.9 and Anxiety F41.9 [place] [id number] December, Anxiety F41.9 and Depression F32.[address] [address] Nov, Depression F32.9 and Anxiety F41.[address] [address] Nov, Anxiety F41.9 ; Major depres sive disorder, recurrent, mild F33.0 ; Depression F32.9 ; Substance abuse F19.10 and Substance addiction F19.[address] [address] Jul, [address] [address] Jul, [address] [address] Jun, Dysuria R30.0 ; Screening fo r malignant neoplasm of cervix Z12.4 ; Vaginal discharge N89.8 ; Costovertebral angle pain M54.9 ; Urinary frequency R35.0 ; Suprapubic pain R10.2 ; History of hematuria Z87.448 and History of recurrent UTIs Z87.[address] [address] Feb, Anxiety, generalized 300.02 ; Social phobia 300.23 ; Major depression 296.20 ; No condition on [place] II V71.09 and No condition on axis III V71.[address] [address] Feb, Panic disorder without agora phobia 300.01 ; Depressive disorder, not elsewhere classified 311 and [place] II diagnosis deferred 799.9 [place] [id number] [address] [place] [address], [place] [address] Jan, Insect bite 919.4 [facility] [address] [id number] [address] [place] [address], [place] [address] 14 Nov, 2014 [facility] [address] [id number] [address] [place] [address], [place] [address] Nov, [facility] [address] [id number] [address] [place] [address], [place] [address] Jul, [facility] [address] [id number] [address] [place] [address], [place] [address] Jul, [facility] [address] [id number] [address] [place] [address], [place] [address] Oct, [facility] [address] [id number] [address] [place] [address], [place] [address] 18 Oct, 2013 [facility] [address] [id number] [address] [place] [address], [place] [address] Oct, [facility] [address] [id number] [address] [place] [address], [place] [address] Oct, [facility] [address] [id number] [address] [place] [address], [place] [address] Oct, [facility] [address] [id number] [address] [place] [address], [place] [address] Oct, [facility] [address] [id number] [address] [place] [address], [place] [address] Oct, [facility] [address] [id number] [address] [place] [address], [place] [address] Oct, [facility] [address] [id number] [address] [place] [address], [place] [address] Sep, [facility] [address] [id number] [address] [place] [address], [place] [address] Sep, [facility] [address] [id number] [address] [place] [address], [place] [address] Aug, [facility] [address] [facility] [id number] [address] [place] [address] Aug, [facility] [address] [facility] [id number] [address] [address] Sep, IMMUNIZATIONS No Known Immunizations SOCIAL HISTORY Never Assessed REASON FOR VISIT E[place] [place] OF CARE VITAL SIGNS MEDICATIONS Medication Instructions Dosage Frequency Start Date End Date Duration S tatus Ortho Tri-Cyclen () 0.18/0.215/0.25 mg-35 mcg () take 1 tablet by oral route once daily Sep, Active Tobramycin 0.3 % instill 2 drops into affected eye(s) by ophthalmic route every 4 hours Jul, Active Flagyl 500 mg 1 tablet by Oral route 2 times per day f or 7 days Oct, Active RESULTS No Results PROCEDURES No Known procedures INSTRUCTIONS MEDICATIONS ADMINISTERED No Known Medications MEDICAL (GENERAL) HISTORY Type Description Date Medical History Medulary Sponge Kidneys Medical History Depression Medical History Anxiety Medical History colitis Surgical History No know Surgical history Hospitalization History kidney stones 2010
--- OUTSIDE RECORDS SUMMARY | 2020-02-29 16:06 | XMS REPORT ---
Author Author Ana Laura Nunez Organization [facility] Address [address] [place] [address] Care Team Providers Care Advertising Columnist Name Role Phone TATYANA Nunez Unavailable PROBLEMS Type Condition ICD9-CM Code [id number] Code Onset Dates Condition S tatus SNOMED Code Problem Major depressive disorder, recurrent, mild F33.0 Active 710174178 Problem Major depressive disorder, recurrent episode, moderate F33.1 Active 407220958 Problem Generalized anxiety disorder F41.1 A ctive 24127165 Problem History of substance abuse Z87.898 Act ruben 980981416 Problem Routine health maintenance Z00.00 Act ruben 885705739 Problem 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 Active 523626887 Problem Post depression F53 Active 12015610 Problem Anxiety F41.9 Active 46973704 Problem KIESHA (generalized anxiety disorder) F41.1 Active 13981518 Problem Depression F32.9 Active 84437989 Problem Low back pain M54.5 Active 314141 009 Problem Other chronic pain G89.29 Active 8 3247917 Problem OAB (overactive bladder) N32.81 Activ e 672172060 Problem Moderate episode of recurrent major depressive disorder F33.1 Active 319455220 ALLERGIES No Information ENCOUNTERS Encounter Location Date Diagnosis [facility] [id number] [place] [address] Jan, Epigastric abdominal pain R1 0.13 and Acute gastritis without hemorrhage, unspecified gastritis type K29.00 [facility] [address] [place] [id number] [address] [place] [address] December, [facility] [address] [place] [id number] [address] [place] [address] December, Grade I hemorrhoids K64.0 [facility] [address] [place] [id number] [address] [place] [address] December, Hemorrhoids, thrombosed K64. 5 [facility] [address] [facility] [id number] [address] [place] [address] Aug, Herpes labialis B00.1 [facility] [address] [place] [address] Aug, [facility] [address] [facility] [id number] [address] [place] [address] December, Other sites of candidiasis B 37.89 and Infection of nipple associated with the puerperium O91.02 [facility] [address] [place] [id number] [place] [address] [id number] December, Dental examination Z01.20 [facility] [id number] [place] [address] [id number] December, Encounter for dental examina tion Z01.20 [facility] [address] [place] [id number] [address] [place] [address] Oct, [facility] [address] [place] [id number] [place] [phone] Oct, Moderate episode of recurren t major depressive disorder F33.1 ; Post depression F53 and KIESHA (generalized anxiety disorder) F41.1 [facility] [address] [facility] [id number] [address] [place] [address] [id number] Sep, Dental examination Z01.20 [facility] [address] [facility] [id number] [address] [place] [address] [id number] Jun, Dental examination Z01.20 [facility] [address] [facility] [id number] [address] [place] [address] Apr, Dental examination Z01.20 [facility] [address] [facility] [id number] [address] [place] [address] [id number] Mar, Encounter for dental examina tion Z01.20 [facility] [address] [place] [id number] [address] [place] [address] Mar, Screening, anemia, deficienc y, iron Z13.0 [facility] [address] [place] [id number] [address] [place] [address] [id number] Sep, Dental caries K02.9 [facility] [address] [place] [id number] [address] [place] [address] Jul, Encounter for test Z32.00 [facility] [address] [address] Jun, Dental examination Z01.20 [facility] [address] [address] Jun, [facility] [address] [address] Jun, Generalized anxiety disorder F41.1 and Major depressive disorder, recurrent episode, moderate F33.1 [facility] [address] [address] May, [facility] [address] [address] May, [facility] [address] [address] May, Urinary frequency R35.0 and OAB (overactive bladder) N32.81 [facility] [address] [address] Mar, [facility] [address] [address] Mar, Generalized anxiety disorder F41.1 and Major depressive disorder, recurrent episode, moderate F33.1 [facility] [address] [address] Mar, Major depressive disorder, r ecurrent episode, moderate F33.1 ; Generalized anxiety disorder F41.1 and History of substance abuse Z87.898 [facility] [address] [facility] [id number] [address] [place] [address] Mar, Anxiety F41.9 ; Depression F 32.9 ; Generalized anxiety disorder F41.1 and Severe episode of recurrent major depressive disorder, with psychotic features F33.3 [place] [address] [facility] [id number] [address] [place] [address] Mar, Major depressive disorder, r ecurrent, mild F33.0 and Anxiety F41.9 [place] [address] [facility] [id number] [address] [place] [address] Feb, Anxiety F41.9 ; Low back claudine n M54.5 and Other chronic pain G89.29 [place] [address] [facility] [id number] [address] [place] [address] Jan, [place] [address] [place] [id number] [address] [place] [address] Jan, Major depressive disorder, r ecurrent episode, moderate F33.1 ; Generalized anxiety disorder F41.1 and History of substance abuse Z87.898 [place] [address] [place] [id number] [address] [place] [address] Jan, Anxiety F41.9 ; Major depres sive disorder, recurrent, mild F33.0 ; Primary insomnia F51.01 and Acute left-sided low back pain with left-sided sciatica M54.42 [place] [address] [facility] [id number] [address] [place] [address] Jan, Major depressive disorder, r ecurrent episode, moderate F33.1 ; Generalized anxiety disorder F41.1 and History of substance abuse Z87.898 [place] [address] [place] [id number] [place] [address] Jan, Major depressive disorder, r ecurrent episode, moderate F33.1 ; Generalized anxiety disorder F41.1 and History of substance abuse Z87.898 [place] [address] [facility] [id number] [address] [place] [address] December, Major depressive disorder, r ecurrent episode, moderate F33.1 ; Generalized anxiety disorder F41.1 and History of substance abuse Z87.898 [place] [address] [place] [id number] December, Routine health maintenance Z 00.00 ; 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 ; Depression F32.9 ; Major depressive disorder, recurrent, mild F33.0 and Anxiety F41.9 [place] 064[address] 10 Dec, 2015 Routine health maintenance Z 00.00 ; 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 ; Major depressive disorder, recurrent, mild F33.0 ; Depression F32.9 ; Anxiety F41.9 and History of substance abuse Z87.898 [place] [address] [address] December, Major depressive disorder, r ecurrent, mild F33.0 ; Depression F32.9 and Anxiety F41.9 [place] [address] [address] December, Anxiety F41.9 and Depression F32.[address] [address] Nov, Depression F32.9 and Anxiety F41.[address] [address] Nov, Anxiety F41.9 ; Major depres sive disorder, recurrent, mild F33.0 ; Depression F32.9 ; Substance abuse F19.10 and Substance addiction F19.20 [place] [address] [address] Jul, [place] [address] Jul, [address] [address] Jun, Dysuria R30.0 ; Screening fo r malignant neoplasm of cervix Z12.4 ; Vaginal discharge N89.8 ; Costovertebral angle pain M54.9 ; Urinary frequency R35.0 ; Suprapubic pain R10.2 ; History of hematuria Z87.448 and History of recurrent UTIs Z87.440 [facility] [address] [facility] [id number] [address] [place] [address] 22 Feb, 2015 Anxiety, generalized 300.02 ; Social phobia 300.23 ; Major depression 296.20 ; No condition on [place] II V71.09 and No condition on axis III V71.09 [facility] [address] [place] [id number] [address] [place] [address] 07 Feb, 2015 Panic disorder without agora phobia 300.01 ; Depressive disorder, not elsewhere classified 311 and [place] II diagnosis deferred 799.9 [facility] [address] [place] [id number] [address] [place] [address] Jan, Insect bite 919.4 [facility] [address] [place] [id number] [address] [place] [address] 14 Nov, 2014 [facility] [address] [place] [id number] [address] [place] [address] Nov, [facility] [address] [place] [id number] [address] [place] [address] Jul, [facility] [address] [facility] [id number] [address] [place] [address] Jul, [facility] [address] [place] [id number] [address] [place] [address] 18 Oct, 2013 [facility] [address] [facility] [id number] [address] [place] [address] 18 Oct, 2013 [facility] [address] [place] [id number] [address] [place] [address] 14 Oct, 2013 [facility] [address] [place] [id number] [address] [place] [phone] Oct, [facility] [address] [place] [id number] [address] [place] [address] Oct, [facility] [address] [id number] [address] [place] [address] Oct, [facility] [address] [id number] [address] [place] [phone] Oct, [facility] [address] [id number] [address] [place] [address] Oct, [facility] [address] [id number] [address] [place] [address] Sep, [facility] [address] [id number] [address] [place] [address] Sep, [facility] [address] [id number] [address] [place] [address] Aug, [facility] [address] [id number] [address] [place] [id number] Aug, [facility] [address] [id number] [address] [place] [address] Sep, IMMUNIZATIONS No Known Immunizations SOCIAL HISTORY Never Assessed REASON FOR VISIT PLAN OF CARE VITAL SIGNS Height 67 in 2014-07-27 Weight 136.06 lbs 2014-07-27 Temperature 97.1 degrees Fahrenheit 2014-07-27 Heart Rate 80 bpm 2014-07-27 Respiratory Rate 18 2014-07-27 Blood pressure systolic 100 mmHg 2014-07-27 Blood pressure diastolic 64 mmHg 2014-07-27 MEDICATIONS No Known Medications RESULTS No Results PROCEDURES No Known procedures INSTRUCTIONS MEDICATIONS ADMINISTERED No Known Medications MEDICAL (GENERAL) HISTORY Type Description Date Medical History Medulary Sponge Kidneys Medical History Depression Medical History Anxiety Medical History colitis Medical History acid reflux following child Surgical History No Surgical history information Hospitalization History kidney stones 2010
--- OUTSIDE RECORDS SUMMARY | 2020-02-29 16:07 | XMS REPORT ---
Author Author Ana Laura BLANC Organization [facility] Address [address] [place] [address] Phone Unavailable Care Team Providers Care Steel Erector Name Role Phone DIDIER BLANC Unavailable Unavailable PROBLEMS Type Condition ICD9-CM Code SFF27-AD Code Onset Dates Condition S tatus SNOMED Code Problem History of substance abuse Z87.898 Act ruben 254605247 Problem 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 Active 112599050 Problem Routine health maintenance Z00.00 Act ruben 933180791 Problem KIESHA (generalized anxiety disorder) F41.1 Active 22357365 Problem Post depression F53 Active 60175152 Problem Other chronic pain G89.29 Active 8 9179687 Problem Low back pain M54.5 Active 961729 009 Problem Moderate episode of recurrent major depressive disorder F33.1 Active 598258876 Problem OAB (overactive bladder) N32.81 Activ e 406744204 Problem Generalized anxiety disorder F41.1 A ctive 51902560 Problem Major depressive disorder, recurrent episode, moderate F33.1 Active 936901643 Problem Depression F32.9 Active 28419454 Problem Major depressive disorder, recurrent, mild F33.0 Active 127154399 Problem Anxiety F41.9 Active 80197111 ALLERGIES Substance Reaction Event Type Date Status Wellbutrin Hallucinations Drug Allergy Sep, Active ENCOUNTERS Encounter Location Date Diagnosis [facility] [address] [facility] [id number] [address] [place] [phone] December, Other sites of candidiasis B 37.89 and Infection of nipple associated with the puerperium O91.02 [facility] [address] [facility] [id number] [address] [place] [address] [id number] December, Dental examination Z01.20 [facility] [address] [facility] [id number] [address] [place] [address] [phone] December, Encounter for dental examina tion Z01.20 [facility] [address] [facility] [id number] [address] [place] [address] Oct, [facility] [address] [place] [id number] [place] [phone] Oct, Moderate episode of recurren t major depressive disorder F33.1 ; Post depression F53 and KIESHA (generalized anxiety disorder) F41.1 [facility] [address] [facility] [id number] [place] [address] [phone] Sep, Dental examination Z01.20 [facility] [address] [id number] Jun, Dental examination Z01.20 [facility] [address] [place] [id number] [place] [phone] Apr, Dental examination Z01.20 [facility] [address] [id number] Mar, Encounter for dental examina tion Z01.20 [facility] [address] [facility] [id number] [address] [place] [phone] Mar, Screening, anemia, deficienc y, iron Z13.0 [facility] [address] [facility] [id number] [address] [place] [address] [id number] Sep, Dental caries K02.9 [facility] [address] [place] [id number] [place] [phone] Jul, Encounter for test Z32.00 [facility] [address] [facility] [id number] [address] [place] [phone] Jun, Dental examination Z01.20 [facility] [address] [place] [id number] [place] [phone] Jun, [facility] [address] [place] [id number] [place] [phone] Jun, Generalized anxiety disorder F41.1 and Major depressive disorder, recurrent episode, moderate F33.1 [facility] [address] [place] [id number] [address] [place] [phone] May, [place] [address] [place] [id number] [place] [phone] May, [place] [address] [place] [id number] [address] [place] [phone] May, Urinary frequency R35.0 and OAB (overactive bladder) N32.81 [place] [address] [place] [id number] [address] [place] [phone] Mar, [place] [address] [place] [id number] [address] [place] [phone] Mar, Generalized anxiety disorder F41.1 and Major depressive disorder, recurrent episode, moderate F33.1 [place] [address] [address] Mar, Major depressive disorder, r ecurrent episode, moderate F33.1 ; Generalized anxiety disorder F41.1 and History of substance abuse Z87.898 [place] [address] [address] Mar, Anxiety F41.9 ; Depression F 32.9 ; Generalized anxiety disorder F41.1 and Severe episode of recurrent major depressive disorder, with psychotic features F33.3 [place] [address] [phone] Mar, Major depressive disorder, r ecurrent, mild F33.0 and Anxiety F41.9 [place] [address] [place] [id number] [address] [place] [address] Feb, Anxiety F41.9 ; Low back claudine n M54.5 and Other chronic pain G89.29 [place] [address] [place] [id number] [address] [place] [phone] Jan, [place] [address] [place] [id number] [place] [phone] Jan, Major depressive disorder, r ecurrent episode, moderate F33.1 ; Generalized anxiety disorder F41.1 and History of substance abuse Z87.898 [place] [address] [place] [id number] Jan, Anxiety F41.9 ; Major depres sive disorder, recurrent, mild F33.0 ; Primary insomnia F51.01 and Acute left-sided low back pain with left-sided sciatica M54.42 [place] [address] [place] [id number] Jan, Major depressive disorder, r ecurrent episode, moderate F33.1 ; Generalized anxiety disorder F41.1 and History of substance abuse Z87.8 [place] [address] [place] [id number] Jan, Major depressive disorder, r ecurrent episode, moderate F33.1 ; Generalized anxiety disorder F41.1 and History of substance abuse Z87.8 [place] [address] [address] December, Major depressive disorder, r ecurrent episode, moderate F33.1 ; Generalized anxiety disorder F41.1 and History of substance abuse Z87.898 [place] [address] [address] December, Routine health maintenance Z 00.00 ; 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 ; Depression F32.9 ; Major depressive disorder, recurrent, mild F33.0 and Anxiety F41.9 [place] [address] [address] December, Routine health maintenance Z 00.00 ; 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 ; Major depressive disorder, recurrent, mild F33.0 ; Depression F32.9 ; Anxiety F41.9 and History of substance abuse Z87.8 [place] [address] [address] December, Major depressive disorder, r ecurrent, mild F33.0 ; Depression F32.9 and Anxiety F41.9 [place] [address] [address] December, Anxiety F41.9 and Depression F32.9 [place] [address] [address] Nov, Depression F32.9 and Anxiety F41.[address] [address] Nov, Anxiety F41.9 ; Major depres sive disorder, recurrent, mild F33.0 ; Depression F32.9 ; Substance abuse F19.10 and Substance addiction F19.[address] [address] Jul, [address] [address] Jul, [address] [address] Jun, Dysuria R30.0 ; Screening fo r malignant neoplasm of cervix Z12.4 ; Vaginal discharge N89.8 ; Costovertebral angle pain M54.9 ; Urinary frequency R35.0 ; Suprapubic pain R10.2 ; History of hematuria Z87.448 and History of recurrent UTIs Z87.[address] [address] Feb, Anxiety, generalized 300.02 ; Social phobia 300.23 ; Major depression 296.20 ; No condition on Seminole II V71.09 and No condition on axis III V71.[address] [address] Feb, Panic disorder without agora phobia 300.01 ; Depressive disorder, not elsewhere classified 311 and Seminole II diagnosis deferred 799.[address] [address] Jan, Insect bite 919.[address] [id number] [address] [place] [address], [place] [address] 14 Nov, 2014 [facility] [address] [id number] [address] [place] [address], [place] [address] 13 Nov, 2014 [facility] [address] [id number] [address] [place] [address], [place] [address] Jul, [facility] [address] [id number] [address] [place] [address], [place] [address] Jul, [facility] [address] [id number] [address] [place] [address], [place] [address] Oct, [facility] [address] [id number] [address] [place] [address], [place] [address] 18 Oct, 2013 [facility] [address] [id number] [address] [place] [address], [place] [address] Oct, [facility] [address] [id number] [address] [place] [address], [place] [address] Oct, [facility] [address] [id number] [address] [place] [address], [place] [address] Oct, [facility] [address] [id number] [address] [place] [address], [place] [address] Oct, [facility] [address] [id number] [address] [place] [address], [place] [address] Oct, [facility] [address] [id number] [address] [place] [address], [place] [address] Oct, [facility] [address] [id number] [address] [place] [address], [place] [address] Sep, [facility] [address] [id number] [address] [place] [address], [place] [address] Sep, [facility] [address] [id number] [address] [place] [address], [place] [address] Aug, [facility] [address] [id number] [address] [place] [address] [address] Aug, [facility] [address] [facility] [id number] [address] [place] [address] Sep, IMMUNIZATIONS No Known Immunizations SOCIAL HISTORY Never Assessed REASON FOR VISIT srp PLAN OF CARE Activity Details Follow Up tino Reason:restore VITAL SIGNS Blood pressure systolic 111 mmHg 2017-09-05 Blood pressure diastolic 68 mmHg 2017-09-05 MEDICATIONS Medication Instructions Dosage Frequency Start Date End Date Duration S tatus Colace Not-Taking Pepcid Active AZO Cranberry 250-30 MG Not-Taking Pre-Aracelis Active Diflucan 150 MG Orally Once a day 1 tablet 24h Jul, 1 dose Not-Taking Escitalopram Oxalate 20 mg Orally Once a day 1 tablet 24h 08 2015 30 day(s) Not-Taking Anusol-HC 2.5 % Rectal 3 times a day 1 application to affected area 8h May, Not-Taking Ortho Tri-Cyclen (28) 0.18/0.215/0.25 mg-35 mcg (28) take 1 tablet by oral route once daily Sep, Not-Taking BusPIRone HCl Active Iron Not-Taking RESULTS No Results PROCEDURES Procedure Date Ordered Result Body Site Periodontal scaling and root Sep 05, 2017 Periodontal scaling and root Sep 05, 2017 Billing Notes on claim Sep 05, 2017 INSTRUCTIONS MEDICATIONS ADMINISTERED No Known Medications MEDICAL (GENERAL) HISTORY Type Description Date Medical History Medulary Sponge Kidneys Medical History Depression Medical History Anxiety Medical History colitis Hospitalization History kidney stones 2010
--- OUTSIDE RECORDS SUMMARY | 2020-02-29 16:07 | XMS REPORT ---
Author Author Ana Laura RETANA Organization [facility] Address [address] [place] [address] Care Team Providers Care E Commerce Web Developer Name Role Phone MAZIN BETTE Unavailable PROBLEMS Type Condition ICD9-CM Code QEY38-SW Code Onset Dates Condition S tatus SNOMED Code Problem History of substance abuse Z87.898 Act ruben 561768629 Problem 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 Active 136126331 Problem Routine health maintenance Z00.00 Act ruben 544782487 Problem KIESHA (generalized anxiety disorder) F41.1 Active 12693843 Problem Post depression F53 Active 74441251 Problem Other chronic pain G89.29 Active 8 8594186 Problem Low back pain M54.5 Active 795454 009 Problem Moderate episode of recurrent major depressive disorder F33.1 Active 241814656 Problem OAB (overactive bladder) N32.81 Activ e 980537188 Problem Generalized anxiety disorder F41.1 A ctive 35063655 Problem Major depressive disorder, recurrent episode, moderate F33.1 Active 645214344 Problem Depression F32.9 Active 15650897 Problem Major depressive disorder, recurrent, mild F33.0 Active 927918990 Problem Anxiety F41.9 Active 12716516 ALLERGIES Substance Reaction Event Type Date Status Wellbutrin Hallucinations Drug Allergy Oct, Active ENCOUNTERS Encounter Location Date Diagnosis [facility] [address] [facility] [id number] [address], [place] [address] December, Other sites of candidiasis B 37.89 and Infection of nipple associated with the puerperium O91.02 [facility] [address] [facility] [id number] [address] [place] [address] [id number] December, Dental examination Z01.20 [facility] [address] [facility] [id number] [address] [place] [address] [id number] December, Encounter for dental examina tion Z01.20 [facility] [address] [facility] [id number] [address] [place] [address] Oct, [facility] [address] [facility] [id number] [address] [place] [address] Oct, Moderate episode of recurren t major depressive disorder F33.1 ; Post depression F53 and KIESHA (generalized anxiety disorder) F41.1 [facility] [address] [id number] [place] [address] [id number] Sep, Dental examination Z01.20 [facility] [address] [id number] [place] [id number] Jun, Dental examination Z01.20 [facility] [address] [facility] [id number] [address] [place] [address] Apr, Dental examination Z01.20 [facility] [address] [place] [address] [id number] Mar, Encounter for dental examina tion Z01.20 [facility] [address] [id number] [address] [place] [phone] Mar, Screening, anemia, deficienc y, iron Z13.0 [facility] [address] [id number] [address] [place] [address] [id number] Sep, Dental caries K02.9 [facility] [address] [facility] [id number] [address] [place] [address] Jul, Encounter for test Z32.00 [facility] [address] [id number] [address] [place] [address] Jun, Dental examination Z01.20 [facility] [address] [facility] [id number] [address] [place] [phone] Jun, [facility] [address] [facility] [id number] [address] [place] [address] Jun, Generalized anxiety disorder F41.1 and Major depressive disorder, recurrent episode, moderate F33.1 [facility] [address] [facility] [id number] [address] [place] [address] May, [facility] [address] [facility] [id number] [address] [place] [address] May, [facility] [address] [facility] [id number] [address] [place] [address] May, Urinary frequency R35.0 and OAB (overactive bladder) N32.81 [facility] [address] [facility] [id number] [address] [place] [address] Mar, [place] [address] [place] [id number] [place] [address] Mar, Generalized anxiety disorder F41.1 and Major depressive disorder, recurrent episode, moderate F33.1 [place] [address] [place] [id number] [place] [address] Mar, Major depressive disorder, r ecurrent episode, moderate F33.1 ; Generalized anxiety disorder F41.1 and History of substance abuse Z87.898 [place] [address] [place] [id number] [place] [address] Mar, Anxiety F41.9 ; Depression F 32.9 ; Generalized anxiety disorder F41.1 and Severe episode of recurrent major depressive disorder, with psychotic features F33.3 [place] [address] [place] [id number] [place] [address] Mar, Major depressive disorder, r ecurrent, mild F33.0 and Anxiety F41.9 [place] [address] [place] [id number] [address] [place] [address] Feb, Anxiety F41.9 ; Low back claudine n M54.5 and Other chronic pain G89.29 [place] [address] [place] [id number] [address] [place] [address] Jan, [place] [address] [place] [id number] [place] [address] Jan, Major depressive disorder, r ecurrent episode, moderate F33.1 ; Generalized anxiety disorder F41.1 and History of substance abuse Z87.898 [place] [address] [address] Jan, Anxiety F41.9 ; Major depres sive disorder, recurrent, mild F33.0 ; Primary insomnia F51.01 and Acute left-sided low back pain with left-sided sciatica M54.42 [place] [address] [place] [id number] [address] [place] [address] Jan, Major depressive disorder, r ecurrent episode, moderate F33.1 ; Generalized anxiety disorder F41.1 and History of substance abuse Z87.898 [place] [address] [address] Jan, Major depressive disorder, r ecurrent episode, moderate F33.1 ; Generalized anxiety disorder F41.1 and History of substance abuse Z87.898 [place] [address] [address] December, Major depressive disorder, r ecurrent episode, moderate F33.1 ; Generalized anxiety disorder F41.1 and History of substance abuse Z87.898 [place] [address] [place] [id number] [address] [place] [address] December, Routine health maintenance Z 00.00 ; 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 ; Depression F32.9 ; Major depressive disorder, recurrent, mild F33.0 and Anxiety F41.9 [place] [address] [place] [id number] [address] [place] [address] December, Routine health maintenance Z 00.00 ; 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 ; Major depressive disorder, recurrent, mild F33.0 ; Depression F32.9 ; Anxiety F41.9 and History of substance abuse Z87.898 [place] [address] [place] [id number] [address] [place] [address] December, Major depressive disorder, r ecurrent, mild F33.0 ; Depression F32.9 and Anxiety F41.[address] [address] December, Anxiety F41.9 and Depression F32.9 [place] [address] [address] Nov, Depression F32.9 and Anxiety F41.[address] [address] Nov, Anxiety F41.9 ; Major depres sive disorder, recurrent, mild F33.0 ; Depression F32.9 ; Substance abuse F19.10 and Substance addiction F19.[address] [address] Jul, [address] [address] Jul, [address] [address] Jun, Dysuria R30.0 ; Screening fo r malignant neoplasm of cervix Z12.4 ; Vaginal discharge N89.8 ; Costovertebral angle pain M54.9 ; Urinary frequency R35.0 ; Suprapubic pain R10.2 ; History of hematuria Z87.448 and History of recurrent UTIs Z87.[address] [address] Feb, Anxiety, generalized 300.02 ; Social phobia 300.23 ; Major depression 296.20 ; No condition on [place] II V71.09 and No condition on axis III V71.[address] [address] Feb, Panic disorder without agora phobia 300.01 ; Depressive disorder, not elsewhere classified 311 and Viola II diagnosis deferred 799.[address] [address] Jan, Insect bite 919.4 [facility] [address] [id number] [address] [place] [address], [place] [address] 14 Nov, 2014 [facility] [address] [id number] [address] [place] [address], [place] [address] Nov, [facility] [address] [id number] [address] [place] [address], [place] [address] Jul, [facility] [address] [id number] [address] [place] [address], [place] [address] Jul, [facility] [address] [id number] [address] [place] [address], [place] [address] Oct, [facility] [address] [id number] [address] [place] [address], [place] [address] Oct, [facility] [address] [id number] [address] [place] [address], [place] [address] Oct, [facility] [address] [id number] [address] [place] [address], [place] [address] Oct, [facility] [address] [id number] [address] [place] [address], [place] [address] Oct, [facility] [address] [id number] [address] [place] [address], [place] [address] Oct, [facility] [address] [id number] [address] [place] [address], [place] [address] Oct, [facility] [address] [id number] [address] [place] [address], [place] [address] Oct, [facility] [address] [id number] [address] [place] [address], [place] [address] Sep, [facility] [address] [id number] [address] [place] [address], [place] [address] Sep, [facility] [address] [id number] [address] [place] [address], [place] [address] Aug, [facility] [address] [id number] [address] [place] [address] Aug, [facility] [address] [facility] [id number] [address] [place] [address] Sep, IMMUNIZATIONS No Known Immunizations SOCIAL HISTORY Never Assessed REASON FOR VISIT BH intake-Vivienne SILVA PLAN OF CARE Activity Details Follow Up 4 Weeks, prn Reason: VITAL SIGNS Height 67 in 2017-10-28 Weight 174.2 lbs 2017-10-28 Heart Rate 74 bpm 2017-10-28 Respiratory Rate 18 2017-10-28 BMI 27.28 kg/m2 2017-10-28 Blood pressure systolic 116 mmHg 2017-10-28 Blood pressure diastolic 72 mmHg 2017-10-28 MEDICATIONS Medication Instructions Dosage Frequency Start Date End Date Duration S tatus Anusol-HC 2.5 % Rectal 3 times a day 1 application to affected area 8h May, Not-Taking BusPIRone HCl 10 MG Orally Three times a day 1 tablet 8h Active Pepcid Active Ortho Tri-Cyclen () 0.18/0.215/0.25 mg-35 mcg () take 1 tablet by oral route once daily Sep, Not-Taking Pre- Active Diflucan 150 MG Orally Once a day 1 tablet 24h Jul, 1 dose Not-Taking Colace Not-Taking Escitalopram Oxalate 20 mg Orally Once a day 1 tablet 24h 08 2015 30 day(s) Not-Taking AZO Cranberry 250-30 MG Not-Taking Iron Not-Taking RESULTS No Results PROCEDURES No Known procedures INSTRUCTIONS MEDICATIONS ADMINISTERED No Known Medications MEDICAL (GENERAL) HISTORY Type Description Date Medical History Medulary Sponge Kidneys Medical History Depression Medical History Anxiety Medical History colitis Hospitalization History kidney stones 2010
--- OUTSIDE RECORDS SUMMARY | 2020-02-29 16:07 | XMS REPORT | Continuity of Care Document ---
Author Author [facility] Organization [facility] Address Unknown Phone Unavailable Care Team Providers Care Operations Officer Trust Department Name Role Phone NO, LOCAL PHYSICIAN PP Unavailable Insurance Providers Payer Name Policy Number Subscriber Name Relationship [facility] [id number] Tova Barnes 01 Self / Same As Patient Advance Directives Directive Response Recor ded Date Advance Directives N 6:36pm Problems No Known Problems or Medical conditions. Social History History Response Recorde d Date/Time Alcohol Use Regular Use 03/27/13 6:36pm Recreational Drug Use Y marijuana 03/27/13 6:36pm Allergies, Adverse Reactions, Alerts Allergen Type Severity Reaction Last Updated No Known Drug Allergies 01/09/11 Medications Medication Dose Units Route Sig Qty Days Hydrocodone Bit/Acetaminophen (Hydrocodo n-Acetaminophen 5-325) 1 - 2 Each PO Q6H PRN 14 Ciprofloxacin (Cipro) 1 Tab PO BID 7 Desvenlafaxine Succinate (Pristiq) 50 Mg PO DAILY Response Recorded Date/Time Status not known Unknown Results No Known Relevant Diagnostic Tests, Laboratory Data and/or Discharge Summary. Encounters Encounter Location Date/ Time Departed Emergency Room [facility] 03/27/13 6:23pm Discharged Inpatient [facility] 08/22/11 2:10am
--- OUTSIDE RECORDS SUMMARY | 2020-02-29 16:07 | XMS REPORT ---
Author Author Ana Laura RETANA Organization [facility] Address [address] [place] [address] Care Team Providers Care Music Librarian Name Role Phone MAZIN BETTE Unavailable PROBLEMS Type Condition ICD9-CM Code [id number] Code Onset Dates Condition S tatus SNOMED Code Problem History of substance abuse Z87.898 Act ruben 649063161 Problem 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 Active 701027651 Problem Routine health maintenance Z00.00 Act ruben 433379024 Problem KIESHA (generalized anxiety disorder) F41.1 Active 87532742 Problem Post depression F53 Active 71797276 Problem Other chronic pain G89.29 Active 8 7209411 Problem Low back pain M54.5 Active 907227 009 Problem Moderate episode of recurrent major depressive disorder F33.1 Active 057815018 Problem OAB (overactive bladder) N32.81 Activ e 066955877 Problem Generalized anxiety disorder F41.1 A ctive 08176462 Problem Major depressive disorder, recurrent episode, moderate F33.1 Active 407344072 Problem Depression F32.9 Active 27429321 Problem Major depressive disorder, recurrent, mild F33.0 Active 780990630 Problem Anxiety F41.9 Active 45010949 ALLERGIES No Information ENCOUNTERS Encounter Location Date Diagnosis [facility] [address] [facility] [id number] [address] [place] [phone] December, Other sites of candidiasis B 37.89 and Infection of nipple associated with the puerperium O91.02 [facility] [address] [place] [id number] December, Dental examination Z01.20 [facility] [address] [facility] [id number] [address] [place] [phone] December, Encounter for dental examina tion Z01.20 [facility] [address] [facility] [id number] [address] [place] [address] Oct, [facility] [address] [address] Oct, Moderate episode of recurren t major depressive disorder F33.1 ; Post depression F53 and KIESHA (generalized anxiety disorder) F41.1 [facility] [address] [place] [id number] [place] [phone] Sep, Dental examination Z01.20 [facility] [address] [place] [phone] Jun, Dental examination Z01.20 [facility] [address] [address] Apr, Dental examination Z01.20 [facility] [address] [id number] Mar, Encounter for dental examina tion Z01.20 [facility] [address] [place] [id number] [address] [place] [phone] Mar, Screening, anemia, deficienc y, iron Z13.0 [facility] [address] [place] [phone] Sep, Dental caries K02.9 [facility] [address] [address] Jul, Encounter for test Z32.00 [facility] [address] [facility] [id number] [address] [place] [address] Jun, Dental examination Z01.20 [facility] [address] [address] Jun, [facility] [address] [place] [id number] [place] [address] Jun, Generalized anxiety disorder F41.1 and Major depressive disorder, recurrent episode, moderate F33.1 [facility] [address] [place] [id number] [address] [place] [phone] May, [place] [address] [facility] [id number] [address] [place] [address] May, [facility] [address] [facility] [id number] [address] [place] [phone] May, Urinary frequency R35.0 and OAB (overactive bladder) N32.81 [place] [address] [place] [id number] [address] [place] [address] Mar, [place] [address] [place] [id number] [place] [phone] Mar, Generalized anxiety disorder F41.1 and Major depressive disorder, recurrent episode, moderate F33.[address] [address] Mar, Major depressive disorder, r ecurrent episode, moderate F33.1 ; Generalized anxiety disorder F41.1 and History of substance abuse Z87.898 [place] [address] [address] Mar, Anxiety F41.9 ; Depression F 32.9 ; Generalized anxiety disorder F41.1 and Severe episode of recurrent major depressive disorder, with psychotic features F33.3 [place] [address] [address] Mar, Major depressive disorder, r ecurrent, mild F33.0 and Anxiety F41.9 [place] [address] [place] [id number] [address] [place] [address] Feb, Anxiety F41.9 ; Low back claudine n M54.5 and Other chronic pain G89.29 [place] [address] [place] [id number] [place] [address] Jan, [place] [address] [place] [id number] [place] [address] Jan, Major depressive disorder, r ecurrent episode, moderate F33.1 ; Generalized anxiety disorder F41.1 and History of substance abuse Z87.898 [place] [address] [address] Jan, Anxiety F41.9 ; Major depres sive disorder, recurrent, mild F33.0 ; Primary insomnia F51.01 and Acute left-sided low back pain with left-sided sciatica M54.42 [place] [address] [place] [id number] Jan, Major depressive disorder, r ecurrent episode, moderate F33.1 ; Generalized anxiety disorder F41.1 and History of substance abuse Z87.8 [place] [address] [place] [id number] Jan, Major depressive disorder, r ecurrent episode, moderate F33.1 ; Generalized anxiety disorder F41.1 and History of substance abuse Z87.8 [place] [address] [address] December, Major depressive disorder, r ecurrent episode, moderate F33.1 ; Generalized anxiety disorder F41.1 and History of substance abuse Z87.898 [place] [address] [address] December, Routine health maintenance Z 00.00 ; 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 ; Depression F32.9 ; Major depressive disorder, recurrent, mild F33.0 and Anxiety F41.9 [place] [address] [place] [id number] [address] [place] [address] December, Routine health maintenance Z 00.00 ; 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 ; Major depressive disorder, recurrent, mild F33.0 ; Depression F32.9 ; Anxiety F41.9 and History of substance abuse Z87.8 [place] [address] [address] December, Major depressive disorder, r ecurrent, mild F33.0 ; Depression F32.9 and Anxiety F41.9 [place] [address] [place] [id number] [address] [place] [address] December, Anxiety F41.9 and Depression F32.9 [place] [address] [place] [id number] [place] [address] Nov, Depression F32.9 and Anxiety F41.9 [place] [address] [address] Nov, Anxiety F41.9 ; Major depres sive disorder, recurrent, mild F33.0 ; Depression F32.9 ; Substance abuse F19.10 and Substance addiction F19.[address] [address] Jul, [place] [address] [address] Jul, [address] [address] Jun, Dysuria R30.0 ; Screening fo r malignant neoplasm of cervix Z12.4 ; Vaginal discharge N89.8 ; Costovertebral angle pain M54.9 ; Urinary frequency R35.0 ; Suprapubic pain R10.2 ; History of hematuria Z87.448 and History of recurrent UTIs Z87.440 [place] [address] [place] [id number] [place] [address] Feb, Anxiety, generalized 300.02 ; Social phobia 300.23 ; Major depression 296.20 ; No condition on Success II V71.09 and No condition on axis III V71.[address] [address] Feb, Panic disorder without agora phobia 300.01 ; Depressive disorder, not elsewhere classified 311 and Success II diagnosis deferred 799.9 [place] [address] [place] [id number] [address] [place] [address] Jan, Insect bite 919.4 [address] [place] [address], [place] [address] 14 Nov, 2014 [facility] [address] [id number] [address] [place] [address], [place] [address] Nov, [facility] [address] [id number] [address] [place] [address], [place] [address] Jul, [facility] [address] [id number] [address] [place] [address], [place] [address] Jul, [facility] [address] [id number] [address] [place] [address], [place] [address] Oct, [facility] [address] [id number] [address] [place] [address], [place] [address] 18 Oct, 2013 [facility] [address] [id number] [address] [place] [address], [place] [address] Oct, [facility] [address] [id number] [address] [place] [address], [place] [address] Oct, [facility] [place] [facility] [address] [id number] [address] [place] [address], [place] [address] Oct, [facility] [address] [id number] [address] [place] [address], [place] [address] Oct, [facility] [address] [id number] [address] [place] [address], [place] [address] Oct, [facility] [address] [id number] [address] [place] [address], [place] [address] Oct, [facility] [address] [id number] [address] [place] [address], [place] [address] Sep, [facility] [address] [id number] [address] [place] [address], [place] [address] Sep, [facility] [address] [id number] [address] [place] [address], [place] [address] Aug, [facility] [address] [id number] [address] [place] [address], [place] [address] Aug, [facility] [address] [facility] [id number] [address] [place] [address] Sep, IMMUNIZATIONS No Known Immunizations SOCIAL HISTORY Never Assessed REASON FOR VISIT discuss medication PLAN OF CARE VITAL SIGNS MEDICATIONS Unknown Medications RESULTS No Results PROCEDURES No Known procedures INSTRUCTIONS MEDICATIONS ADMINISTERED No Known Medications MEDICAL (GENERAL) HISTORY Type Description Date Medical History Medulary Sponge Kidneys Medical History Depression Medical History Anxiety Medical History colitis Hospitalization History kidney stones 2010
--- OUTSIDE RECORDS SUMMARY | 2020-02-29 16:07 | XMS REPORT ---
Author Author Ana Laura Mendes Organization [facility] Address [address] [place] [address] Care Team Providers Care Online Program Coordinator Name Role Phone DIMITRI Mendes Unavailable PROBLEMS Type Condition ICD9-CM Code [id number] Code Onset Dates Condition S tatus SNOMED Code Problem Depression F32.9 Active 73950798 Problem Routine health maintenance Z00.00 Act ruben 504029529 Problem Anxiety F41.9 Active 18786035 Problem Major depressive disorder, recurrent, mild F33.0 Active 785621957 Problem Generalized anxiety disorder F41.1 A ctive 23930592 Problem Major depressive disorder, recurrent episode, moderate F33.1 Active 480244402 Problem Encounter for dental examination Z01.20 Active 126664957 Problem OAB (overactive bladder) N32.81 Activ e 974704507 Problem 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 Active 582149577 Problem History of substance abuse Z87.898 Act ruben 566941946 Problem Other chronic pain G89.29 Active 8 5747832 Problem Low back pain M54.5 Active 242419 009 ALLERGIES Unknown Allergies SOCIAL HISTORY No smoking Hx information available PLAN OF CARE VITAL SIGNS Height 67 in 2016-06-20 Weight 150.5 lbs 2016-06-20 BMI 23.57 kg/m2 2016-06-20 Blood pressure systolic 102 mmHg 2016-06-20 Blood pressure diastolic 68 mmHg 2016-06-20 MEDICATIONS Medication Instructions Dosage Frequency Start Date End Date Duration S tatus Escitalopram Oxalate 20 mg Orally Once a day 1 tablet 24h 08 No v, 2015 30 day(s) Active RESULTS No Results PROCEDURES No Known procedures IMMUNIZATIONS No Known Immunizations
--- OUTSIDE RECORDS SUMMARY | 2020-02-29 16:07 | XMS REPORT ---
Author Author Ana Laura Arellano Organization [facility] Address Unknown Care Team Providers Care Check Out Clerk Name Role Phone ZEN Arellano Unavailable PROBLEMS Type Condition ICD9-CM Code SVS27-FP Code Onset Dates Condition S tatus SNOMED Code Problem Major depressive disorder, recurrent episode, moderate F33.1 Active 423232447 Problem Depression F32.9 Active 05996137 Problem Anxiety F41.9 Active 25326028 Problem Major depressive disorder, recurrent, mild F33.0 Active 466326147 Problem Generalized anxiety disorder F41.1 A ctive 98239196 Problem OAB (overactive bladder) N32.81 Activ e 293700131 Problem Low back pain M54.5 Active 836672 009 Problem 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 Active 365546098 Problem History of substance abuse Z87.898 Act ruben 385072287 Problem Other chronic pain G89.29 Active 8 8673517 Problem Routine health maintenance Z00.00 Act ruben 799672971 ALLERGIES Substance Reaction Event Type Date Status Wellbutrin Hallucinations Drug Allergy Jun, Active SOCIAL HISTORY No smoking Hx information available PLAN OF CARE Activity Details Follow Up prn Reason:te #3 VITAL SIGNS Height 67 in 2016-06-26 Blood pressure systolic 131 mmHg 2016-06-26 Blood pressure diastolic 100 mmHg 2016-06-26 MEDICATIONS Medication Instructions Dosage Frequency Start Date End Date Duration S tatus Amoxicillin 500 MG Orally 4 times a day 1 capsule 6h Jun, 16 30 Jun, 2016 7 days Active [place] 5-325 MG Orally every 6 hrs 1 tablet as needed 6h No v, 2015Jun, 4 days Active RESULTS No Results PROCEDURES Procedure Date Ordered Related Diagnosis Body Site LTD ORAL EVALUATION - PROBLEM FOCUS Jun 26, 2016 INTRAORL-PERIAPICAL 1 FILM 43267 Jun 26, 2016 IMMUNIZATIONS No Known Immunizations
--- OUTSIDE RECORDS SUMMARY | 2020-02-29 16:07 | XMS REPORT ---
Author Author Ana Laura GREWAL Organization [facility] Address [address] [place] [address] Care Team Providers Care Photogrammetrist Name Role Phone CR GREWAL Unavailable PROBLEMS Type Condition ICD9-CM Code XPN03-EI Code Onset Dates Condition S tatus SNOMED Code Problem History of substance abuse Z87.898 Act ruben 064461188 Problem 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 Active 455815497 Problem Routine health maintenance Z00.00 Act ruben 124442983 Problem KIESHA (generalized anxiety disorder) F41.1 Active 42165886 Problem Post depression F53 Active 84746133 Problem Other chronic pain G89.29 Active 8 6471260 Problem Low back pain M54.5 Active 148396 009 Problem Moderate episode of recurrent major depressive disorder F33.1 Active 829563386 Problem OAB (overactive bladder) N32.81 Activ e 305281164 Problem Generalized anxiety disorder F41.1 A ctive 73251112 Problem Major depressive disorder, recurrent episode, moderate F33.1 Active 253201100 Problem Depression F32.9 Active 17640865 Problem Major depressive disorder, recurrent, mild F33.0 Active 002241180 Problem Anxiety F41.9 Active 56333577 ALLERGIES Substance Reaction Event Type Date Status Wellbutrin Hallucinations Drug Allergy Mar, Active ENCOUNTERS Encounter Location Date Diagnosis [facility] [address] [facility] [id number] [address] [place] [address] [phone] December, [facility] [address] [facility] [id number] [address] [place] [address] [phone] December, [facility] [address] [place] [id number] [address] [place] [phone] Nov, [facility] [address] [place] [id number] [address] [place] [phone] Oct, [facility] [address] [id number] [address] [place] [phone] Oct, Moderate episode of recurren t major depressive disorder F33.1 ; Post depression F53 and KIESHA (generalized anxiety disorder) F41.1 [facility] [address] [id number] [address] [place] [address] [phone] Sep, Dental examination Z01.20 [facility] [address] [id number] [place] [address] [phone] Jun, Dental examination Z01.20 [facility] [address] [id number] [address] [place] [address] Apr, Dental examination Z01.20 [facility] [address] [id number] [place] [address] [phone] Mar, Encounter for dental examina tion Z01.20 [facility] [address] [id number] [address] [place] [phone] Mar, Screening, anemia, deficienc y, iron Z13.0 [facility] [address] [id number] [address] [place] [address] [id number] Sep, Dental caries K02.9 [facility] [address] [place] [id number] [address] [place] [phone] Jul, Encounter for test Z32.00 [facility] [address] [facility] [id number] [address] [place] [phone] Jun, Dental examination Z01.20 [facility] [address] [id number] [address] [place] [phone] Jun, [facility] [address] [place] [id number] [place] [phone] Jun, Generalized anxiety disorder F41.1 and Major depressive disorder, recurrent episode, moderate F33.1 [facility] [address] [facility] [id number] [address] [place] [phone] May, [facility] [address] [address] May, [place] [address] [address] May, Urinary frequency R35.0 and OAB (overactive bladder) N32.81 [place] [address] [address] Mar, [place] [address] [address] Mar, Generalized anxiety disorder F41.1 and Major depressive disorder, recurrent episode, moderate F33.[address] [address] Mar, Major depressive disorder, r ecurrent episode, moderate F33.1 ; Generalized anxiety disorder F41.1 and History of substance abuse Z87.[address] [address] Mar, Anxiety F41.9 ; Depression F 32.9 ; Generalized anxiety disorder F41.1 and Severe episode of recurrent major depressive disorder, with psychotic features F33.[address] [address] Mar, Major depressive disorder, r ecurrent, mild F33.0 and Anxiety F41.[address] [address] Feb, Anxiety F41.9 ; Low back claudine n M54.5 and Other chronic pain G89.29 [place] [address] [address] Jan, [address] [address] Jan, Major depressive disorder, r ecurrent episode, moderate F33.1 ; Generalized anxiety disorder F41.1 and History of substance abuse Z87.898 [place] [address] [place] [address] [place] [address] 16 Jan, 2016 Anxiety F41.9 ; Major depres sive disorder, recurrent, mild F33.0 ; Primary insomnia F51.01 and Acute left-sided low back pain with left-sided sciatica M54.42 [place] [address] [facility] [id number] [address] [place] [address] Jan, Major depressive disorder, r ecurrent episode, moderate F33.1 ; Generalized anxiety disorder F41.1 and History of substance abuse Z87.898 [place] [address] [address] Jan, Major depressive disorder, r ecurrent episode, moderate F33.1 ; Generalized anxiety disorder F41.1 and History of substance abuse Z87.898 [place] [address] [place] [id number] [address] [place] [phone] December, Major depressive disorder, r ecurrent episode, moderate F33.1 ; Generalized anxiety disorder F41.1 and History of substance abuse Z87.898 [place] [address] [place] [id number] [address] [place] [phone] December, Routine health maintenance Z 00.00 ; 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 ; Depression F32.9 ; Major depressive disorder, recurrent, mild F33.0 and Anxiety F41.9 [place] [address] [place] [id number] [address] [place] [address] December, Routine health maintenance Z 00.00 ; 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 ; Major depressive disorder, recurrent, mild F33.0 ; Depression F32.9 ; Anxiety F41.9 and History of substance abuse Z87.898 [place] [address] [address] December, Major depressive disorder, r ecurrent, mild F33.0 ; Depression F32.9 and Anxiety F41.9 [place] [address] [place] [id number] [address] [place] [address] December, Anxiety F41.9 and Depression F32.9 [place] [address] [place] [id number] [address] [place] [address] Nov, Depression F32.9 and Anxiety F41.9 [place] [address] [address] Nov, Anxiety F41.9 ; Major depres sive disorder, recurrent, mild F33.0 ; Depression F32.9 ; Substance abuse F19.10 and Substance addiction F19.20 [place] [address] [address] Jul, [place] [address] [address] Jul, [place] [address] [address] Jun, Dysuria R30.0 ; Screening fo r malignant neoplasm of cervix Z12.4 ; Vaginal discharge N89.8 ; Costovertebral angle pain M54.9 ; Urinary frequency R35.0 ; Suprapubic pain R10.2 ; History of hematuria Z87.448 and History of recurrent UTIs Z87.440 [place] [address] [address] Feb, Anxiety, generalized 300.02 ; Social phobia 300.23 ; Major depression 296.20 ; No condition on Paris II V71.09 and No condition on axis III V71.09 [place] [address] [address] Feb, Panic disorder without agora phobia 300.01 ; Depressive disorder, not elsewhere classified 311 and Paris II diagnosis deferred 799.9 [place] [address] [place] [id number] [address] [place] [address] Jan, Insect bite 919.[address] [address] Nov, [facility] [address] [id number] [address] [place] [address], [place] [address] 13 Nov, 2014 [facility] [address] [id number] [address] [place] [address], [place] [address] Jul, [facility] [address] [id number] [address] [place] [address], [place] [address] Jul, [facility] [address] [id number] [address] [place] [address], [place] [address] Oct, [facility] [address] [id number] [address] [place] [address], [place] [address] 18 Oct, 2013 [facility] [address] [id number] [address] [place] [address], [place] [address] Oct, [facility] [address] [id number] [address] [place] [address], [place] [address] Oct, [facility] [address] [id number] [address] [place] [address], [place] [address] Oct, [facility] [address] [id number] [address] [place] [address], [place] [address] Oct, [facility] [address] [id number] [address] [place] [address], [place] [address] Oct, [facility] [address] [id number] [address] [place] [address], [place] [address] Oct, [facility] [address] [id number] [address] [place] [address], [place] [address] Sep, [facility] [address] [id number] [address] [place] [address], [place] [address] Sep, [facility] [address] [id number] [address] [place] [address], [place] [address] Aug, [facility] [address] [id number] [address] [place] [address], [place] [address] Aug, [facility] [address] [id number] [address] [place] [address], [place] [address] Sep, IMMUNIZATIONS No Known Immunizations SOCIAL HISTORY Never Assessed REASON FOR VISIT prophy PLAN OF CARE Activity Details Follow Up First Available Reason:SRP VITAL SIGNS MEDICATIONS Medication Instructions Dosage Frequency Start Date End Date Duration S tatus Pre-Aracelis Active Iron Active Colace Active RESULTS No Results PROCEDURES Procedure Date Ordered Result Body Site COMP ORAL EVALUATION - NEW/EST PT Apr 03, 2017 INTRAORL-PERIAPICAL 1 FILM 78859 Apr 03, 2017 PANORAMIC FILM SEE ALSO CODE 17422 Apr 03, 2017 INTRAORL-PERIAPICAL EA ADD FILM Apr 03, 2017 BITEWINGS - FOUR FILMS Apr 03, 2017 INTRAORL-PERIAPICAL EA ADD FILM Apr 03, 2017 INSTRUCTIONS MEDICATIONS ADMINISTERED No Known Medications MEDICAL (GENERAL) HISTORY Type Description Date Medical History Medulary Sponge Kidneys Medical History Depression Medical History Anxiety Medical History colitis Hospitalization History kidney stones 2010
--- OUTSIDE RECORDS SUMMARY | 2020-02-29 16:07 | XMS REPORT ---
Author Author Ana Laura PEGUERO Organization [facility] Address [address] [place] [address] Care Team Providers Care Bias Machine Operator Helper Name Role Phone MARIELENALBDOMINGO Unavailable PROBLEMS Type Condition ICD9-CM Code NBC84-WR Code Onset Dates Condition S tatus SNOMED Code Problem History of substance abuse Z87.898 Act ruben 599116229 Problem 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 Active 475276201 Problem Routine health maintenance Z00.00 Act ruben 464550250 Problem KIESHA (generalized anxiety disorder) F41.1 Active 94957998 Problem Post depression F53 Active 60674796 Problem Other chronic pain G89.29 Active 8 0665561 Problem Low back pain M54.5 Active 691624 009 Problem Moderate episode of recurrent major depressive disorder F33.1 Active 281719636 Problem OAB (overactive bladder) N32.81 Activ e 687168106 Problem Generalized anxiety disorder F41.1 A ctive 06525731 Problem Major depressive disorder, recurrent episode, moderate F33.1 Active 539111402 Problem Depression F32.9 Active 20581517 Problem Major depressive disorder, recurrent, mild F33.0 Active 910617043 Problem Anxiety F41.9 Active 40589632 ALLERGIES Substance Reaction Event Type Date Status Wellbutrin Hallucinations Drug Allergy Apr, Active ENCOUNTERS Encounter Location Date Diagnosis [facility] [address] [facility] [id number] [address] [place] [address] [id number] December, [facility] [address] [facility] [id number] [address] [place] [address] [id number] December, [facility] [address] [place] [id number] [address] [place] [phone] Oct, [facility] [address] [facility] [id number] [address] [place] [phone] Oct, Moderate episode of recurren t major depressive disorder F33.1 ; Post depression F53 and KIESHA (generalized anxiety disorder) F41.1 [facility] [id number] [place] [address] [id number] Sep, Dental examination Z01.20 [facility] [address] [id number] [address] [place] [address] [id number] Jun, Dental examination Z01.20 [facility] [address] [facility] [id number] [address] [place] [address] Apr, Dental examination Z01.20 [facility] [address] [id number] [address] [id number] Mar, Encounter for dental examina tion Z01.20 [facility] [address] [place] [id number] [address] [place] [phone] Mar, Screening, anemia, deficienc y, iron Z13.0 [facility] [address] [id number] [place] [address] [id number] Sep, Dental caries K02.9 [facility] [address] [place] [id number] [place] [phone] Jul, Encounter for test Z32.00 [facility] [address] [facility] [id number] [address] [place] [phone] Jun, Dental examination Z01.20 [facility] [address] [facility] [id number] [address] [place] [phone] Jun, [facility] [address] [facility] [id number] [address] [place] [phone] Jun, Generalized anxiety disorder F41.1 and Major depressive disorder, recurrent episode, moderate F33.1 [facility] [address] [facility] [id number] [address] [place] [phone] May, [facility] [address] [place] [id number] [address] [place] [phone] May, [place] [address] [facility] [id number] [address] [place] [phone] May, Urinary frequency R35.0 and OAB (overactive bladder) N32.81 [place] [address] [facility] [id number] [address] [place] [phone] Mar, [place] [address] [facility] [id number] [address] [place] [phone] Mar, Generalized anxiety disorder F41.1 and Major depressive disorder, recurrent episode, moderate F33.1 [place] [address] [facility] [id number] [address] [place] [phone] Mar, Major depressive disorder, r ecurrent episode, moderate F33.1 ; Generalized anxiety disorder F41.1 and History of substance abuse Z87.898 [place] [address] [place] [id number] [address] [place] [phone] Mar, Anxiety F41.9 ; Depression F 32.9 ; Generalized anxiety disorder F41.1 and Severe episode of recurrent major depressive disorder, with psychotic features F33.3 [place] [address] [facility] [id number] [address] [place] [phone] Mar, Major depressive disorder, r ecurrent, mild F33.0 and Anxiety F41.9 [place] [address] [place] [id number] [address] [place] [address] Feb, Anxiety F41.9 ; Low back claudine n M54.5 and Other chronic pain G89.29 [place] [address] [facility] [id number] [address] [place] [phone] Jan, [place] [address] [facility] [id number] [address] [place] [phone] Jan, Major depressive disorder, r ecurrent episode, moderate F33.1 ; Generalized anxiety disorder F41.1 and History of substance abuse Z87.898 [place] [address] [facility] [id number] [address] [place] [address] Jan, Anxiety F41.9 ; Major depres sive disorder, recurrent, mild F33.0 ; Primary insomnia F51.01 and Acute left-sided low back pain with left-sided sciatica M54.42 [place] [address] [place] [id number] [address] [place], [place] [address] Jan, Major depressive disorder, r ecurrent episode, moderate F33.1 ; Generalized anxiety disorder F41.1 and History of substance abuse Z87.898 [place] [address] [address] Jan, Major depressive disorder, r ecurrent episode, moderate F33.1 ; Generalized anxiety disorder F41.1 and History of substance abuse Z87.898 [place] [address] [address] December, Major depressive disorder, r ecurrent episode, moderate F33.1 ; Generalized anxiety disorder F41.1 and History of substance abuse Z87.898 [place] [address] [address] December, Routine health maintenance Z 00.00 ; 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 ; Depression F32.9 ; Major depressive disorder, recurrent, mild F33.0 and Anxiety F41.9 [place] [address] [place] [id number] [address] [place] [address] December, Routine health maintenance Z 00.00 ; 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 ; Major depressive disorder, recurrent, mild F33.0 ; Depression F32.9 ; Anxiety F41.9 and History of substance abuse Z87.898 [place] [address] [place] [id number] [address] [place] [phone] December, Major depressive disorder, r ecurrent, mild F33.0 ; Depression F32.9 and Anxiety F41.9 [place] [address] [place] [id number] [address] [place] [address] December, Anxiety F41.9 and Depression F32.9 [place] [address] [address] Nov, Depression F32.9 and Anxiety F41.9 [place] [address] [address] Nov, Anxiety F41.9 ; Major depres sive disorder, recurrent, mild F33.0 ; Depression F32.9 ; Substance abuse F19.10 and Substance addiction F19.20 [place] [address] [address] Jul, [place] [address] [address] Jul, [place] [address] [address] Jun, Dysuria R30.0 ; Screening fo r malignant neoplasm of cervix Z12.4 ; Vaginal discharge N89.8 ; Costovertebral angle pain M54.9 ; Urinary frequency R35.0 ; Suprapubic pain R10.2 ; History of hematuria Z87.448 and History of recurrent UTIs Z87.440 [place] [address] [address] Feb, Anxiety, generalized 300.02 ; Social phobia 300.23 ; Major depression 296.20 ; No condition on Christoval II V71.09 and No condition on axis III V71.09 [place] [address] [address] Feb, Panic disorder without agora phobia 300.01 ; Depressive disorder, not elsewhere classified 311 and Christoval II diagnosis deferred 799.9 [place] [address] [address] Jan, Insect bite 919.4 [place] [address] [address] 14 Nov, 2014 [place] [address] [address] Nov, [facility] [address] [id number] [address] [place] [address], [place] [address] Jul, [facility] [address] [id number] [address] [place] [address], [place] [address] Jul, [facility] [address] [id number] [address] [place] [address], [place] [address] Oct, [facility] [address] [id number] [address] [place] [address], [place] [address] Oct, [facility] [address] [id number] [address] [place] [address], [place] [address] Oct, [facility] [address] [id number] [address] [place] [address], [place] [address] Oct, [facility] [address] [id number] [address] [place] [address], [place] [address] Oct, [facility] [address] [id number] [address] [place] [phone] Oct, [facility] [address] [id number] [address] [place] [address], [place] [address] Oct, [facility] [address] [id number] [address] [place] [phone] Oct, [facility] [address] [id number] [address] [place] [phone] Sep, [facility] [address] [id number] [address] [place] [phone] Sep, [facility] [address] [id number] [address] [place] [phone] Aug, [facility] [address] [id number] [address] [place] [phone] Aug, [facility] [address] [id number] [address] [place] [phone] Sep, IMMUNIZATIONS No Known Immunizations SOCIAL HISTORY Never Assessed REASON FOR VISIT scaling and root plaining 4 quads? PLAN OF CARE Activity Details Follow Up NAHUM Reason:LEFT SIDE RESTOR ATIVE OR SRP VITAL SIGNS Blood pressure systolic 119 mmHg 2017-04-10 Blood pressure diastolic 80 mmHg 2017-04-10 MEDICATIONS Medication Instructions Dosage Frequency Start Date End Date Duration S mo Alejandra Active Pre- Active RESULTS No Results PROCEDURES Procedure Date Ordered Result Body Site Periodontal scaling and root Apr 10, 2017 Periodontal scaling and root Apr 10, 2017 Billing Notes on claim Apr 10, 2017 INSTRUCTIONS MEDICATIONS ADMINISTERED No Known Medications MEDICAL (GENERAL) HISTORY Type Description Date Medical History Medulary Sponge Kidneys Medical History Depression Medical History Anxiety Medical History colitis Hospitalization History kidney stones 2010
--- OUTSIDE RECORDS SUMMARY | 2020-02-29 16:07 | XMS REPORT ---
Author Author Ana Laura HANSEN [facility] Address Unknown Care Team Providers Care Shirt Trimmer Name Role Phone AGUSTIN HANSEN Unavailable PROBLEMS Type Condition ICD9-CM Code [id number] Code Onset Dates Condition S tatus SNOMED Code Problem History of substance abuse Z87.898 Act ruben 828334090 Problem 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 Active 460244548 Problem Routine health maintenance Z00.00 Act ruben 365989160 Problem KIESHA (generalized anxiety disorder) F41.1 Active 88976099 Problem Post depression F53 Active 79608337 Problem Other chronic pain G89.29 Active 8 3021402 Problem Low back pain M54.5 Active 845830 009 Problem Moderate episode of recurrent major depressive disorder F33.1 Active 697315041 Problem OAB (overactive bladder) N32.81 Activ e 391351594 Problem Generalized anxiety disorder F41.1 A ctive 93344209 Problem Major depressive disorder, recurrent episode, moderate F33.1 Active 805301174 Problem Depression F32.9 Active 69502884 Problem Major depressive disorder, recurrent, mild F33.0 Active 559041935 Problem Anxiety F41.9 Active 62918598 ALLERGIES Substance Reaction Event Type Date Status Wellbutrin Hallucinations Drug Allergy Jun, Active ENCOUNTERS Encounter Location Date Diagnosis [facility] [address] [facility] [id number] [address] [place] [phone] December, Other sites of candidiasis B 37.89 and Infection of nipple associated with the puerperium O91.02 [facility] [id number] [place] [id number] December, Dental examination Z01.20 [facility] [address] [facility] [id number] [address] [place] [id number] December, Encounter for dental examina tion Z01.20 [facility] [address] [facility] [id number] [address] [place] [phone] Oct, [facility] [address] [address] Oct, Moderate episode of recurren t major depressive disorder F33.1 ; Post depression F53 and KIESHA (generalized anxiety disorder) F41.1 [facility] [address] [place] [id number] [place] [id number] Sep, Dental examination Z01.20 [facility] [address] [place] [id number] Jun, Dental examination Z01.20 [facility] [address] [phone] Apr, Dental examination Z01.20 [facility] [address] [id number] Mar, Encounter for dental examina tion Z01.20 [facility] [address] [place] [id number] [address] [place] [phone] Mar, Screening, anemia, deficienc y, iron Z13.0 [facility] [address] [place] [id number] Sep, Dental caries K02.9 [facility] [address] [address] Jul, Encounter for test Z32.00 [facility] [address] [facility] [id number] [address] [place] [phone] Jun, Dental examination Z01.20 [facility] [address] [address] Jun, [facility] [address] [place] [id number] [place] [phone] Jun, Generalized anxiety disorder F41.1 and Major depressive disorder, recurrent episode, moderate F33.1 [facility] [address] [place] [id number] [address] [place] [phone] May, [place] [address] [facility] [id number] [address] [place] [phone] May, [facility] [address] [facility] [id number] [address] [place] [phone] May, Urinary frequency R35.0 and OAB (overactive bladder) N32.81 [place] [address] [place] [id number] [address] [place] [phone] Mar, [place] [address] [place] [id number] [place] [phone] Mar, Generalized anxiety disorder F41.1 and Major depressive disorder, recurrent episode, moderate F33.[address] [address] Mar, Major depressive disorder, r ecurrent episode, moderate F33.1 ; Generalized anxiety disorder F41.1 and History of substance abuse Z87.898 [place] [address] [address] Mar, Anxiety F41.9 ; Depression F 32.9 ; Generalized anxiety disorder F41.1 and Severe episode of recurrent major depressive disorder, with psychotic features F33.3 [place] [address] [address] Mar, Major depressive disorder, r ecurrent, mild F33.0 and Anxiety F41.9 [place] [address] [place] [id number] [address] [place] [phone] Feb, Anxiety F41.9 ; Low back claudine n M54.5 and Other chronic pain G89.29 [place] [address] [place] [id number] [place] [address] Jan, [place] [address] [place] [id number] [place] [address] Jan, Major depressive disorder, r ecurrent episode, moderate F33.1 ; Generalized anxiety disorder F41.1 and History of substance abuse Z87.898 [place] [address] [address] Jan, Anxiety F41.9 ; Major depres sive disorder, recurrent, mild F33.0 ; Primary insomnia F51.01 and Acute left-sided low back pain with left-sided sciatica M54.42 [place] [address] [place] [id number] Jan, Major depressive disorder, r ecurrent episode, moderate F33.1 ; Generalized anxiety disorder F41.1 and History of substance abuse Z87.8 [place] [address] [place] [id number] Jan, Major depressive disorder, r ecurrent episode, moderate F33.1 ; Generalized anxiety disorder F41.1 and History of substance abuse Z87.8 [place] [address] [address] December, Major depressive disorder, r ecurrent episode, moderate F33.1 ; Generalized anxiety disorder F41.1 and History of substance abuse Z87.898 [place] [address] [address] December, Routine health maintenance Z 00.00 ; 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 ; Depression F32.9 ; Major depressive disorder, recurrent, mild F33.0 and Anxiety F41.9 [place] [address] [place] [id number] [address] [place] [address] December, Routine health maintenance Z 00.00 ; 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 ; Major depressive disorder, recurrent, mild F33.0 ; Depression F32.9 ; Anxiety F41.9 and History of substance abuse Z87.8 [place] [address] [address] December, Major depressive disorder, r ecurrent, mild F33.0 ; Depression F32.9 and Anxiety F41.9 [place] [address] [place] [id number] [address] [place] [phone] December, Anxiety F41.9 and Depression F32.9 [place] [address] [place] [id number] [address] [place] [phone] Nov, Depression F32.9 and Anxiety F41.9 [place] [address] [address] Nov, Anxiety F41.9 ; Major depres sive disorder, recurrent, mild F33.0 ; Depression F32.9 ; Substance abuse F19.10 and Substance addiction F19.[address] [address] Jul, [place] [address] [address] Jul, [address] [address] Jun, Dysuria R30.0 ; Screening fo r malignant neoplasm of cervix Z12.4 ; Vaginal discharge N89.8 ; Costovertebral angle pain M54.9 ; Urinary frequency R35.0 ; Suprapubic pain R10.2 ; History of hematuria Z87.448 and History of recurrent UTIs Z87.440 [place] [address] [place] [id number] [address] [place] [phone] Feb, Anxiety, generalized 300.02 ; Social phobia 300.23 ; Major depression 296.20 ; No condition on [place] II V71.09 and No condition on axis III V71.[address] [address] Feb, Panic disorder without agora phobia 300.01 ; Depressive disorder, not elsewhere classified 311 and [place] II diagnosis deferred 799.9 [place] [address] [place] [id number] [address] [place] [phone] Jan, Insect bite 919.[address] [place] [address], [place] [address] 14 Nov, 2014 [facility] [address] [id number] [address] [place] [address], [place] [address] Nov, [facility] [address] [id number] [address] [place] [address], [place] [address] Jul, [facility] [address] [id number] [address] [place] [address], [place] [address] Jul, [facility] [address] [id number] [address] [place] [address], [place] [address] Oct, [facility] [address] [id number] [address] [place] [address], [place] [address] 18 Oct, 2013 [facility] [address] [id number] [address] [place] [address], [place] [address] Oct, [facility] [address] [id number] [address] [place] [address], [place] [address] Oct, [facility] [address] [id number] [address] [place] [address], [place] [address] Oct, [facility] [address] [id number] [address] [place] [address], [place] [address] Oct, [facility] [address] [id number] [address] [place] [address], [place] [address] Oct, [facility] [address] [id number] [address] [place] [address], [place] [address] Oct, [facility] [address] [id number] [address] [place] [address], [place] [address] Sep, [facility] [address] [id number] [address] [place] [address], [place] [address] Sep, [facility] [address] [id number] [address] [place] [address], [place] [address] Aug, [facility] [address] [id number] [address] [place] [address], [place] [address] Aug, [facility] [address] [facility] [id number] [address] [place] [address] Sep, IMMUNIZATIONS No Known Immunizations SOCIAL HISTORY Never Assessed REASON FOR VISIT VIOLETTA PLAN OF CARE Activity Details Follow Up prn Reason:Mosque # 2 VITAL SIGNS Blood pressure systolic 123 mmHg 2017-06-12 Blood pressure diastolic 73 mmHg 2017-06-12 MEDICATIONS Medication Instructions Dosage Frequency Start Date End Date Duration S tatus BusPIRone HCl Active Pre- Active Iron Active RESULTS No Results PROCEDURES Procedure Date Ordered Result Body Site LTD ORAL EVALUATION - PROBLEM FOCUS Jun 12, 2017 INTRAORL-PERIAPICAL 1 FILM [id number] Jun 12, 2017 INSTRUCTIONS MEDICATIONS ADMINISTERED No Known Medications MEDICAL (GENERAL) HISTORY Type Description Date Medical History Medulary Sponge Kidneys Medical History Depression Medical History Anxiety Medical History colitis Hospitalization History kidney stones 2010
--- OUTSIDE RECORDS SUMMARY | 2020-02-29 16:08 | XMS REPORT | Continuity of Care Document ---
Author Organization Unknown Address Unknown Phone Unavailable Allergies Active Description Code Type Severity Reaction Onset Reported/Identified Relationship to Patient Clinical Status Yes No Known Drug Allergies [id number] Drug Allergy Unknown N/A 01/09/2011 Medications There is no data. 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 08/22/2011 Ot V69.2 HIGH -RISK SEXUAL BEHAVIOR 03/27/2013 GARCIA ALVAREZ MD Ot 599.0 URIN TRACT INFECTION NOS 03/27/2013 GARCIA ALVAREZ MD Ot 599.70 HEMATURIA, UNSPECIFIED 08/31/2013 NORM WEINER MD 296 .31 MAJOR DEPRESSIVE AFFECTIVE DISORDER RECURRENT EPISODE MILD DEGREE 08/31/2013 NORM WEINER MD 296 .31 MAJOR DEPRESSIVE AFFECTIVE DISORDER RECURRENT EPISODE MILD DEGREE 08/31/2013 JODI PRATT APRN A 296.31 MAJOR DEPRESSIVE AFFECTIVE DISORDER RECURRENT EPISODE MILD DEGREE 08/31/2013 TATYANA SCHMITT APRN 296.31 MAJOR DEPRESSIVE AFFECTIVE DISORDER RECURRENT EPISODE MILD DEGREE 10/01/2013 NORM WEINER MD V25 .01 CONTRACEPTION - ORAL CONTRACEPTION 10/01/2013 JODI PRATT APRN V25.01 CONTRACEPTION - ORAL CONTRACEPTION 10/01/2013 TATYANA SCHMITT APRN V25.01 CONTRACEPTION - ORAL CONTRACEPTION 10/07/2013 [employer], JODI A V7 4.5 STD SCREEN 10/07/2013 KESHIA KATHLEEN, TATYANA R V74.5 STD SCREEN 07/27/2014 KESHIA KATHLEEN, TATYANA R 372.00 ACUTE CONJUNCTIVITIS UNSPECIFIED 10/19/2015 GARCIA ALVAREZ MD Ot F41.9 ANXIETY DISORDER, UNSPECIFIED 10/19/2015 GARCIA ALVAREZ MD Ot T50.5X5A ADVERSE EFFECT OF APPETITE DEPRESSANTS, 10/20/2015 GARCIA ALVAREZ MD Ot F41.9 10/20/2015 GARCIA ALVAREZ MD Ot T50.5X5A 04/24/2016 GARCIA ALVAREZ MD, Ot F41.9 ANXIETY DISORDER, UNSPECIFIED 04/24/2016 GARCIA ALVAREZ MD Ot T50.5X5A ADVERSE EFFECT OF APPETITE DEPRESSANTS, 05/20/2016 GARCIA ALVAREZ MD Ot K52.9 NONINFECTIVE GASTROENTERITIS AND COLITIS 05/20/2016 GARCIA ALVAREZ MD Ot K59.00 CONSTIPATION, UNSPECIFIED 05/20/2016 GARCIA ALVAREZ MD Ot K64.4 RESIDUAL HEMORRHOIDAL SKIN TAGS 05/20/2016 GARCIA ALVAREZ MD Ot R10.32 LEFT LOWER QUADRANT PAIN 05/21/2016 GARCIA ALVAREZ MD Ot K52.9 NONINFECTIVE GASTROENTERITIS AND COLITIS 05/21/2016 GARCIA ALVAREZ MD Ot K59.00 CONSTIPATION, UNSPECIFIED 05/21/2016 GARCIA ALVAREZ MD Ot K64.4 RESIDUAL HEMORRHOIDAL SKIN TAGS 05/21/2016 GARCIA ALVAREZ MD Ot R10.32 LEFT LOWER QUADRANT PAIN 05/21/2016 GARCIA ALVAREZ MD Ot K52.9 NONINFECTIVE GASTROENTERITIS AND COLITIS 05/21/2016 GARCIA ALVAREZ MD Ot K59.00 CONSTIPATION, UNSPECIFIED 05/21/2016 GARCIA ALVAREZ MD Ot K64.4 RESIDUAL HEMORRHOIDAL SKIN TAGS 05/21/2016 GARCIA ALVAREZ MD Ot R10.32 LEFT LOWER QUADRANT PAIN 08/18/2016 GARCIA ALVAREZ MD Ot K59.00 CONSTIPATION, UNSPECIFIED 08/18/2016 GARCIA ALVAREZ MD Ot M54.5 LOW BACK PAIN 08/18/2016 GARCIA ALVAREZ MD Ot O26.891 OTH RELATED CONDITIONS, FIRST 08/18/2016 GARCIA ALVAREZ MD Ot R10.31 RIGHT LOWER QUADRANT PAIN 08/18/2016 GARCIA ALVAREZ MD Ot R10.32 LEFT LOWER QUADRANT PAIN 08/18/2016 GARCIA ALVAREZ MD Ot Z3A.10 10 WEEKS GESTATION OF 08/24/2016 GARCIA ALVAREZ MD Ot K59.00 CONSTIPATION, UNSPECIFIED 08/24/2016 GARCIA ALVAREZ MD Ot M54.5 LOW BACK PAIN 08/24/2016 GARCIA ALVAREZ MD Ot O26.891 OTH RELATED CONDITIONS, FIRST 08/24/2016 GARCIA ALVAREZ MD Ot R10.31 RIGHT LOWER QUADRANT PAIN 08/24/2016 GARCIA ALVAREZ MD Ot R10.32 LEFT LOWER QUADRANT PAIN 08/24/2016 GARCIA ALVAREZ MD Ot Z3A.10 10 WEEKS GESTATION OF 10/28/2016 WILLY LABOY MD Ot M54. 42 LUMBAGO WITH SCIATICA, LEFT SIDE 10/28/2016 WILLY LABOY MD Ot O26.892 OTH RELATED CONDITIONS, SECOND 10/28/2016 WILLY LABOY MD Ot Z3A. 18 18 WEEKS GESTATION OF 10/29/2016 WILLY LABOY MD, Ot M54. 42 LUMBAGO WITH SCIATICA, LEFT SIDE 10/29/2016 WILLY LABOY MD Ot O26.892 OTEvangelina RELATED CONDITIONS, SECOND 10/29/2016 WILLY LABOY MD Ot Z3A. 18 18 WEEKS GESTATION OF 11/13/2016 ELLA LEI MD Ot Z33. 1 STATE, INCIDENTAL 11/13/2016 ELLA LEI MD Ot Z36 ENCOUNTER FOR SCREENING OF MOT 11/14/2016 WILLY LABOY MD Ot M54. 42 LUMBAGO WITH SCIATICA, LEFT SIDE 11/14/2016 WILLY LABOY MD Ot O26.892 OTH RELATED CONDITIONS, SECOND 11/14/2016 WILLY LABOY MD Ot Z3A. 18 18 WEEKS GESTATION OF 11/25/2016 WILLY LABOY MD Ot M54. 42 LUMBAGO WITH SCIATICA, LEFT SIDE 11/25/2016 BENOIT GARCIA, WILLY Pop Ot O26.892 OTH RELATED CONDITIONS, SECOND 11/25/2016 WILLY LABOY MD Ot Z3A. 18 18 WEEKS GESTATION OF 11/29/2016 WILLY LABOY MD Ot M54. 42 LUMBAGO WITH SCIATICA, LEFT SIDE 11/29/2016 WILLY LABOY MD Ot O26.892 OTH RELATED CONDITIONS, SECOND 11/29/2016 WILLY LABOY MD Ot Z3A. 18 18 WEEKS GESTATION OF 12/13/2016 ELLA LEI MD Ot Z36 ENCOUNTER FOR SCREENING OF MOT 12/13/2016 ELLA LEI MD Ot Z3A. 00 WEEKS OF GESTATION OF NOT SPEC 03/09/2017 KAYY GARCIA, OSVALDO Villalba Ot O36.8190 DECREASED MOVEMENTS, UNSP TRIMESTE 03/15/2017 ELLA LEI MD Ot Z33. 1 STATE, INCIDENTAL 03/15/2017 ELLA LEI MD N Ot Z36 ENCOUNTER FOR SCREENING OF MOT 03/15/2017 ELLA LEI MD N Ot Z36 ENCOUNTER FOR SCREENING OF MOT 03/15/2017 ELLA LEI MD N Ot Z3A. 00 WEEKS OF GESTATION OF NOT SPEC 03/15/2017 GAMINO DO, CHAPIS C Ot N89.8 OTHER SPECIFIED NONINFLAMMATORY DISORDER 03/15/2017 GAMINO DO, CHAPIS C Ot O26.8 93 OTH RELATED CONDITIONS, THIRD 03/15/2017 GAMINO DO, CHAPIS C Ot O47.1 FALSE LABOR AT OR AFTER 37 COMPLETED WEE 03/15/2017 GAMINO DO, CHAPIS C Ot Z3A.3 9 39 WEEKS GESTATION OF 03/21/2017 GAMINO DO, CHAPIS C Ot N89.8 OTHER SPECIFIED NONINFLAMMATORY DISORDER 03/21/2017 GAMINO DO, CHAPIS C Ot O26.8 93 OTH RELATED CONDITIONS, THIRD 03/21/2017 GAMINO DO, CHAPIS C Ot O47.1 FALSE LABOR AT OR AFTER 37 COMPLETED WEE 03/21/2017 GAMINO DO, CHAPIS C Ot Z3A.3 9 39 WEEKS GESTATION OF 03/22/2017 NYLA STERN DO Ot D6 2 ACUTE POSTHEMORRHAGIC ANEMIA 03/22/2017 NYLA STERN DO Ot O48.0 POST-TERM 03/22/2017 NYLA STERN DO Ot O69.81X0 LABOR AND DEL COMP BY CORD AROUND NECK, 03/22/2017 NYLA STERN DO Ot O90.81 ANEMIA OF THE PUERPERIUM 03/22/2017 LEENA TINAJERO NYLA Nunez Ot Z2 3 ENCOUNTER FOR IMMUNIZATION 03/22/2017 LEENA TINAJERO NYLA Nunez Ot Z37.0 SINGLE LIVE 03/22/2017 LEENA TINAJERO NYLA Nunez Ot Z3A.40 40 WEEKS GESTATION OF 05/08/2017 ELLA LEI MD, Ot Z33. 1 STATE, INCIDENTAL 05/08/2017 ELLA LEI MD Ot Z36 ENCOUNTER FOR SCREENING OF MOT 05/08/2017 ELLA LEI MD, Ot Z36 ENCOUNTER FOR SCREENING OF MOT 05/08/2017 ELLA LEI MD Ot Z3A. 00 WEEKS OF GESTATION OF NOT SPEC 06/12/2017 NYLA STERN DO Ot M53.3 SACROCOCCYGEAL DISORDERS, NOT ELSEWHERE 06/17/2017 LEENA TINAJERO NYLA Nunez Ot M53.3 SACROCOCCYGEAL DISORDERS, NOT ELSEWHERE 07/01/2017 LEENA TINAJERO NYLA Nunez Ot M53.3 SACROCOCCYGEAL DISORDERS, NOT ELSEWHERE Procedures Code Description [place] [address] PAP SMEAR 10/01/2012 29818 PREG ALIS TEST, URINE (IN- HOUSE) 10/01/2013 92622 UA L KIMO DIP 10/01/2013 50195 GC/C HLAM PROBE (STATE) 10/07/2013 47170 TRIC HOMONAS (IN-HOUSE) 10/07/2013 36796 CULT URE UROGENITAL 10/11/2013 [id number] IN TRODUCE OF OTH THERAP SUBST INTO FEM R 03/20/2017 [id number] DI VISION OF FEMALE PERINEUM, EXTERNAL AP 03/21/2017 [id number] EX TRACTION OF PRODUCTS OF CONCEPTION, VA 03/21/2017 Results Test Result Range Complete urinalysis with reflex to cultu re - 05/20/16 03:23 Urine color determination YELLOW NRG Urine clarity determination SLIGHTLY CLOUDY NRG Urine pH measurement by test strip 6.5 5-9 Specific gravity of urine by test strip 1.020 1.016-1.022 Urine protein assay by test strip, semi-quantitative NEGATIVE NEGATIVE Urine glucose detection by automated test strip NE GATIVE NEGATIVE Erythrocytes detection in urine sediment by light micr oscopy 1+ NEGATIVE Urine ketones detection by automated test strip 2+ NEGATIVE Urine nitrite detection by test strip NEGATIVE NEGATIVE Urine total bilirubin detection by test strip NEGA TIVE NEGATIVE Urine urobilinogen measurement by automated test strip (mass/volume) NORMAL NORMAL Urine leukocyte esterase detection by dipstick NEG ATIVE NEGATIVE Automated urine sediment erythrocyte cou nt by microscopy (number/high power field) RARE NRG Automated urine sediment leukocyte count by microscopy (number/high power field) RARE NRG Bacteria detection in urine sediment by light microsco py FEW NRG Squamous epithelial cells detection in u rine sediment by light microscopy 5-10 NRG Crystals detection in urine sediment by light microsco py NONE NRG Casts detection in urine sediment by light microscopy NONE NRG Mucus detection in urine sediment by light microscopy SMALL NRG Complete urinalysis with reflex to culture YES NRG Bacterial urine culture - 05/20/16 03:23 URINE CULTURE RESULTS MORE THAN 3 ISOLATES NRG Complete blood count (CBC) with automate d white blood cell (WBC) differential - 05/20/16 06:05 Blood leukocytes automated count (number/volume) 14.9 10*3/uL 4.3-11.0 Blood erythrocytes automated count (number/volume) 4.77 10*6/uL 4.35-5.85 Venous blood hemoglobin measurement (mass/volume) 14.8 g/dL 11.5-16.0 Blood hematocrit (volume fraction) 43 % 35-52 Automated erythrocyte mean corpuscular volume 89 [ foz_us] 80-99 Automated erythrocyte mean corpuscular h emoglobin (mass per erythrocyte) 31 pg 25-34 Automated erythrocyte mean corpuscular h emoglobin concentration measurement (mass/volume) 35 g/dL 32-36 Automated erythrocyte distribution width ratio 12. 8 % 10.0- 14.5 Automated blood platelet count (count/volume) 298 10*3/uL 130-400 Automated blood platelet mean volume measurement 10.0 [foz_us] 7.4-10.4 Automated blood neutrophils/100 leukocytes 85 % 42-75 Automated blood lymphocytes/100 leukocytes 11 % 12-44 Blood monocytes/100 leukocytes 3 % 0-12 Automated blood eosinophils/100 leukocytes 0 % 0-10 Automated blood basophils/100 leukocytes 0 % 0-10 Blood neutrophils automated count (number/volume) 12.6 10*3 1.8-7.8 Blood lymphocytes automated count (number/volume) 1.7 10*3 1.0-4.0 Blood monocytes automated count (number/volume) 0. 5 10*3 0.0-1.0 Automated eosinophil count 0.0 10*3/uL 0 .0-0.3 Automated blood basophil count (count/volume) 0.0 10*3/uL 0.0-0.1 Blood manual differential performed dete ction - 05/20/16 06:05 Blood monocytes/100 leukocytes 2 % NRG Manual blood segmented neutrophils/100 leukocytes 87 % NRG Manual blood lymphocytes/100 leukocytes 4 % NRG Manual eosinophils/100 leukocytes in nose 1 % NRG Manual blood basophils/100 leukocytes 1 % NRG Blood lymphocytes variant/100 leukocytes 5 % NRG Blood erythrocyte morphology finding identification NORMAL NRG Comprehensive metabolic panel - 05/20/16 06:05 Serum or plasma sodium measurement (moles/volume) 138 mmol/L 135-145 Serum or plasma potassium measurement (moles/volume) 3.7 mmol/L 3.6-5.0 Serum or plasma chloride measurement (moles/volume) 106 mmol/L 98-107 Carbon dioxide 23 mmol/L 21-32 Serum or plasma anion gap determination (moles/volume) 9 mmol/L 5-14 Serum or plasma urea nitrogen measurement (mass/volume ) 9 mg/dL 7-18 Serum or plasma creatinine measurement (mass/volume) 0.83 mg/dL 0.60-1.30 Serum or plasma urea nitrogen/creatinine mass ratio 11 NRG Serum or plasma creatinine measurement w ith calculation of estimated glomerular filtration rate > NRG Serum or plasma glucose measurement (mass/volume) 107 mg/dL 70-105 Serum or plasma calcium measurement (mass/volume) 10.0 mg/dL 8.5-10.1 Serum or plasma total bilirubin measurement (mass/volu me) 0.5 mg/dL 0.1-1.0 Serum or plasma alkaline phosphatase jared surement (enzymatic activity/volume) 62 U/L 40-136 Serum or plasma aspartate aminotransfera se measurement (enzymatic activity/volume) 20 U/L 5-34 Serum or plasma alanine aminotransferase measurement (enzymatic activity/volume) 17 U/L 0-55 Serum or plasma protein measurement (mass/volume) 7.6 g/dL 6.4-8.2 Serum or plasma albumin measurement (mass/volume) 4.6 g/dL 3.2-4.5 Complete urinalysis with reflex to cultu re - 08/18/16 19:08 Urine color determination YELLOW NRG Urine clarity determination SLIGHTLY CLOUDY NRG Urine pH measurement by test strip 7 5-9 Specific gravity of urine by test strip 1.015 1.016-1.022 Urine protein assay by test strip, semi-quantitative NEGATIVE NEGATIVE Urine glucose detection by automated test strip NE GATIVE NEGATIVE Erythrocytes detection in urine sediment by light micr oscopy NEGATIVE NEGATIVE Urine ketones detection by automated test strip NE GATIVE NEGATIVE Urine nitrite detection by test strip NEGATIVE NEGATIVE Urine total bilirubin detection by test strip NEGA TIVE NEGATIVE Urine urobilinogen measurement by automated test strip (mass/volume) NORMAL NORMAL Urine leukocyte esterase detection by dipstick 3+ NEGATIVE Automated urine sediment erythrocyte cou nt by microscopy (number/high power field) NONE NRG Automated urine sediment leukocyte count by microscopy (number/high power field) [HPF] NRG Bacteria detection in urine sediment by light microsco py MODERATE NRG Squamous epithelial cells detection in u rine sediment by light microscopy 25-50 NRG Crystals detection in urine sediment by light microsco py NONE NRG Casts detection in urine sediment by light microscopy NONE NRG Mucus detection in urine sediment by light microscopy NEGATIVE NRG Complete urinalysis with reflex to culture YES NRG Bacterial urine culture - 08/18/16 19:08 Bacterial urine culture [id number] NRG COLONY COUNT 10,000/ML - 100,000/ML NRG FTX;REPORTABLE PLUS, NRG FREE TEXT ENTRY 2 LACTOBACILLUS >100,000/ML AND NRG FREE TEXT ENTRY 3 MIXED GRAM POSITIVE EV, <10,0 00/ML NRG Complete urinalysis with reflex to cultu re - 03/15/17 21:30 Urine color determination YELLOW NRG Urine clarity determination SLIGHTLY CLOUDY NRG Urine pH measurement by test strip 7 5-9 Specific gravity of urine by test strip 1.015 1.016-1.022 Urine protein assay by test strip, semi-quantitative 1+ NEGATIVE Urine glucose detection by automated test strip NE GATIVE NEGATIVE Erythrocytes detection in urine sediment by light micr oscopy NEGATIVE NEGATIVE Urine ketones detection by automated test strip NE GATIVE NEGATIVE Urine nitrite detection by test strip NEGATIVE NEGATIVE Urine total bilirubin detection by test strip NEGA TIVE NEGATIVE Urine urobilinogen measurement by automated test strip (mass/volume) NORMAL NORMAL Urine leukocyte esterase detection by dipstick 1+ NEGATIVE Automated urine sediment erythrocyte cou nt by microscopy (number/high power field) NONE NRG Automated urine sediment leukocyte count by microscopy (number/high power field) [HPF] NRG Bacteria detection in urine sediment by light microsco py FEW NRG Squamous epithelial cells detection in u rine sediment by light microscopy 25-50 NRG Crystals detection in urine sediment by light microsco py NONE NRG Casts detection in urine sediment by light microscopy NONE NRG Mucus detection in urine sediment by light microscopy NEGATIVE NRG Complete urinalysis with reflex to culture NO NRG Complete blood count (CBC) with automate d white blood cell (WBC) differential - 03/20/17 19:25 Blood leukocytes automated count (number/volume) 12.2 10*3/uL 4.3-11.0 Blood erythrocytes automated count (number/volume) 3.93 10*6/uL 4.35-5.85 Venous blood hemoglobin measurement (mass/volume) 12.2 g/dL 11.5-16.0 Blood hematocrit (volume fraction) 36 % 35-52 Automated erythrocyte mean corpuscular volume 92 [ foz_us] 80-99 Automated erythrocyte mean corpuscular h emoglobin (mass per erythrocyte) 31 pg 25-34 Automated erythrocyte mean corpuscular h emoglobin concentration measurement (mass/volume) 34 g/dL 32-36 Automated erythrocyte distribution width ratio 12. 9 % 10.0- 14.5 Automated blood platelet count (count/volume) 200 10*3/uL 130-400 Automated blood platelet mean volume measurement 11.5 [foz_us] 7.4-10.4 Automated blood neutrophils/100 leukocytes 76 % 42-75 Automated blood lymphocytes/100 leukocytes 18 % 12-44 Blood monocytes/100 leukocytes 5 % 0-12 Automated blood eosinophils/100 leukocytes 1 % 0-10 Automated blood basophils/100 leukocytes 0 % 0-10 Blood neutrophils automated count (number/volume) 9.3 10*3 1.8-7.8 Blood lymphocytes automated count (number/volume) 2.2 10*3 1.0-4.0 Blood monocytes automated count (number/volume) 0. 6 10*3 0.0-1.0 Automated eosinophil count 0.1 10*3/uL 0 .0-0.3 Automated blood basophil count (count/volume) 0.0 10*3/uL 0.0-0.1 Blood type T Indirect antibody screen pa stephanie - 03/20/17 19:25 ABO+Rh group AP NRG Transfusion band number [id number] NRG Blood group antibody screen NEGATIVE NR G Complete urinalysis with reflex to cultu re - 03/20/17 20:15 Urine color determination YELLOW NRG Urine clarity determination SLIGHTLY CLOUDY NRG Urine pH measurement by test strip 6.5 5-9 Specific gravity of urine by test strip 1.015 1.016-1.022 Urine protein assay by test strip, semi-quantitative NEGATIVE NEGATIVE Urine glucose detection by automated test strip NE GATIVE NEGATIVE Erythrocytes detection in urine sediment by light micr oscopy NEGATIVE NEGATIVE Urine ketones detection by automated test strip NE GATIVE NEGATIVE Urine nitrite detection by test strip NEGATIVE NEGATIVE Urine total bilirubin detection by test strip NEGA TIVE NEGATIVE Urine urobilinogen measurement by automated test strip (mass/volume) NORMAL NORMAL Urine leukocyte esterase detection by dipstick 1+ NEGATIVE Automated urine sediment erythrocyte cou nt by microscopy (number/high power field) NONE NRG Automated urine sediment leukocyte count by microscopy (number/high power field) [HPF] NRG Bacteria detection in urine sediment by light microsco py FEW NRG Squamous epithelial cells detection in u rine sediment by light microscopy 10-25 NRG Crystals detection in urine sediment by light microsco py NONE NRG Casts detection in urine sediment by light microscopy NONE NRG Mucus detection in urine sediment by light microscopy NEGATIVE NRG Complete urinalysis with reflex to culture NO NRG Complete blood count (CBC) with automate d white blood cell (WBC) differential - 03/22/17 06:05 Blood leukocytes automated count (number/volume) 12.6 10*3/uL 4.3-11.0 Blood erythrocytes automated count (number/volume) 3.05 10*6/uL 4.35-5.85 Venous blood hemoglobin measurement (mass/volume) 9.6 g/dL 11.5-16.0 Blood hematocrit (volume fraction) 29 % 35-52 Automated erythrocyte mean corpuscular volume 95 [ foz_us] 80-99 Automated erythrocyte mean corpuscular h emoglobin (mass per erythrocyte) 31 pg 25-34 Automated erythrocyte mean corpuscular h emoglobin concentration measurement (mass/volume) 33 g/dL 32-36 Automated erythrocyte distribution width ratio 13. 0 % 10.0- 14.5 Automated blood platelet count (count/volume) 157 10*3/uL 130-400 Automated blood platelet mean volume measurement 11.2 [foz_us] 7.4-10.4 Automated blood neutrophils/100 leukocytes 71 % 42-75 Automated blood lymphocytes/100 leukocytes 23 % 12-44 Blood monocytes/100 leukocytes 5 % 0-12 Automated blood eosinophils/100 leukocytes 1 % 0-10 Automated blood basophils/100 leukocytes 0 % 0-10 Blood neutrophils automated count (number/volume) 9.0 10*3 1.8-7.8 Blood lymphocytes automated count (number/volume) 2.9 10*3 1.0-4.0 Blood monocytes automated count (number/volume) 0. 6 10*3 0.0-1.0 Automated eosinophil count 0.1 10*3/uL 0 .0-0.3 Automated blood basophil count (count/volume) 0.0 10*3/uL 0.0-0.1 SUREPATH PAP RFX HPV mRNA E6/E7 - 12:34 CLINICAL INFORMATION: NR LMP: 08/22/19 NR PREV. PAP: 2015 WNL NRG PREV. BX: NRG SOURCE: [employer] NR STATEMENT OF ADEQUACY: NR INTERPRETATION/RESULT: NR ALTERNATIVE EDUCATION TEACHER: NRG GENERAL CATEGORIZATION: NR COMMENT: [facility] PATHOLOGIST: NR COMMENT NR CULTURE, GENITAL - 10/23/19 08:27 CULTURE, GENITAL SEE NOTE NRG HSV 1/2 IGG,TYPE SPECIFIC AB HERPESELECT - 02/15/20 17:04 HSV 1 IGG, TYPE SPECIFIC AB 40.90 index NRG HSV 2 IGG, TYPE SPECIFIC AB <0.90 index NRG Encounters ACCT No. Visit Date/Time Discharge Status Pt. Type Provider Facility Loc./Unit Complaint [id number] 07/27/2014 08:44:00 07/27/2014 23:59: 59 CLS Outpatient TATYANA SCHMITT APRN [id number] 10/07/2013 15:09:00 10/07/2013 23:59: 59 CLS Outpatient JODI PRATT APRN [id number] 10/01/2013 14:33:00 10/01/2013 23:59: 59 CLS Outpatient NORM WEINER MD [id number] 08/31/2013 13:18:00 08/31/2013 23:59: 59 [place] [id number] 02/27/2020 08:45:00 ACT Outpatient TONO SPENCERK [facility] [id number] 02/15/2020 16:10:00 Document Registration [id number] 10/23/2019 09:40:00 Document Registration [id number] 09/02/2019 11:00:00 Document Registration [id number] 06/30/2017 10:27:00 017 10:25:00 DIS [facility]COM FORT FOLLOWING DELIVERY [id number] 03/20/2017 19:00:00 017 14:45:00 DIS Inpatient LEENA TINAJERO NYLA Enrique [facility] LDRP INDUCTION [id number] 03/15/2017 21:15:00 017 22:18:00 DIS Outpatient CHAPIS GAMINO DO [facility] WATER BROKE [id number] 03/09/2017 15:01:00 017 15:55:00 DIS Outpatient OSVALDO SULTANA MD [facility] DECREASED MOVEMENT [id number] 12/03/2016 09:55:00 017 23:59:59 CLS Outpatient ELLA LEI MD [facility] RAD F/U CARDIAC ANATOMY [id number] 11/29/2016 11:15:00 017 11:49:00 DIS [facility] SCIATICA DUR ING ; 13 WEEKS [id number] 11/01/2016 10:11:00 017 23:59:59 CLS Outpatient ELLA LEI MD [facility] RAD SURVEY [id number] 08/18/2016 18:42:00 017 21:43:00 ABDIRAHMAN Emergency GARCIA ALVAREZ MD [facility] ER 10 WKS PREG/LOW ER BACK PAIN/CRAMPING [id number] 05/20/2016 05:17:00 016 07:49:00 GARCIA Rooney MD [facility] ER BLOODY BOWEL [id number] 04/05/2016 13:26:00 016 23:59:59 CLS Outpatient TATYANA SCHMITT APRN [facility] QUICK [id number] 10/19/2015 09:59:00 016 11:46:00 GARCIA Rooney MD [facility] ER MEDICATION SIDE EFFECTS;ARM PAIN;CHEST PAIN [id number] 03/27/2013 18:23:00 013 22:26:00 GARCIA Rooney MD [facility] ER BLOOD IN STOOL [id number] 08/22/2011 02:10:00 Document Registration [id number] 01/09/2011 11:17:00 Document Registration
== END 2020-02-29 15:12 | disposition home or self-care (01) ==
LOC: EDUNIT# 12:07 → ER 12:08
DX: N39.0 Urinary tract infection, site not specified (principal); K59.09 Other constipation; Z87.891 Personal history of nicotine dependence
CPT/HCPCS: 36415; 74018; 74176; 80053; 81000; 82150; 83690; 84703; 85007; 85027; 87077; 87088